=== PATIENT | female | born 1935 | race Caucasian/White ===

== ENCOUNTER 2017-10-10 10:36 | Emergency (ER) | payer MEDICARE, BC ==
[2017-10-10 10:49] VITALS: RESP 18
[2017-10-10] MEDS ORDERED: SODIUM CHLORIDE 0.9% 1,000 ML IV STA (10:59)
[2017-10-10 11:22] LABS: Basophils % (A) 0 %; Eosinophils # (A) 0.2 k/uL (0-0.7); Eosinophils % (A) 2 %; HCT 42.8 % (34.0-46.0); Lymphocytes # (A) 2.5 k/uL (1.0-4.8); Lymphocytes % (A) 28 %; MCH 28.7 pg (25.0-35.0); MCHC 32.7 g/dL (31.0-37.0); MCV 87.6 fL (80.0-100.0); Mean Platelet Volume 7.3; Monocytes # (A) 0.5 k/uL (0-1.0); Monocytes % (A) 5 %; Neutrophils # (A) 5.6 k/uL (1.3-7.7); Neutrophils % (A) 63 %; Platelet Count 303 k/uL (150-450); RBC 4.89 m/uL (3.80-5.40); RDW 13.8 % (11.5-15.5)
--- NOTE | 2017-10-10 11:26 | XR ---
EXAMINATION TYPE: XR chest 2V DATE OF EXAM: 10/10/2017 COMPARISON: Prior chest x-ray 03/14/2014 HISTORY: Weakness TECHNIQUE: Frontal and lateral views of the chest are obtained. FINDINGS: There is no focal air space opacity, pleural effusion, or pneumothorax seen. The cardiac silhouette size is within normal limits. The osseous structures are intact. IMPRESSION: No acute cardiopulmonary process.
[2017-10-10 11:37] LABS: Prothrombin Time 9.8 sec (9.0-12.0)
[2017-10-10 11:38] LABS: Albumin 4.1 g/dL (3.5-5.0); Calcium 9.5 mg/dL (8.4-10.2); Magnesium 2.2 mg/dL (1.6-2.3); Phosphorus 3.5 mg/dL (2.5-4.5); Potassium 3.8 mmol/L (3.5-5.1); Total Bilirubin 0.6 mg/dL (0.2-1.3); Total Protein 6.8 g/dL (6.3-8.2)
[2017-10-10 11:44] LABS: Partial Thromboplastin Time 21.1 sec (22.0-30.0)
[2017-10-10 11:56] LABS: Creatine Kinase 24 U/L (30-135)
[2017-10-10 12:00] LABS: Appearance,Urine Clear (Clear); Bilirubin,Urine Negative (Negative); Blood,Urine Negative (Negative); Color,Urine Yellow; Glucose,Urine (UA) Negative (Negative); Ketones,Urine Negative (Negative); Leukocyte Esterase,Urine Negative (Negative); Nitrite,Urine Negative (Negative); PH, Urine 5.5 (5.0-8.0); Protein,Urine Negative (Negative); Specific Gravity,Urine 1.017 (1.001-1.035); Urobilinogen,Urine <2.0 mg/dL (<2.0)
[2017-10-10 12:09] LABS: Creatine Kinase MB 0.7 ng/mL (0.0-2.4); Troponin I <0.012 ng/mL (0.000-0.034)
--- NOTE | 2017-10-10 13:02 | ED ---
General Adult HPI - General Chief complaint: Weakness Stated complaint: weakness Time Seen by Provider: 10/10/17 10:42 Source: EMS, RN notes reviewed, old records reviewed Mode of arrival: EMS Limitations: no limitations - History of Present Illness Initial comments: This is an 81-year-old female the ER for evaluation, patient presents to the ER for evaluation regarding multiple complaints of mainly regarding weakness. Patient does admit to positive dehydration. Thinks he may have UTI. No recent nausea vomiting or diarrhea no fevers - Related Data Home Medications Medication Instructions Recorded Confirmed Lisinopril-Hctz 20-12.5 mg 2 tab PO DAILY 03/14/14 10/18/17 [Zestoretic 20-12.5] Aspirin EC [Ecotrin Low Dose] 81 mg PO DAILY 10/10/17 10/18/17 LORazepam [Ativan] 0.5 mg PO BID PRN 10/18/17 10/18/17 LORazepam [Ativan] 0.5 mg PO BID@10/18/17 10/18/17 Sertraline [Zoloft] 200 mg PO DAILY 10/18/17 10/18/17 Previous Rx's Medication Instructions Recorded Acetaminophen with Codeine 1 tab PO Q4H PRN 3 Days #18 tab 10/20/17 [Tylenol w/codeine #3] Famotidine [Pepcid] 20 mg PO BID #60 tablet 10/20/17 Naproxen 250 mg PO TID #30 tablet 10/20/17 Allergies Allergy/AdvReac Type Severity Reaction Status Date / Time azithromycin [From Zithromax] Allergy Mild Nausea & Verified 10/18/17 16:45 Vomiting & Diarrhea Iodinated Contrast- Oral and Allergy Mild Unknown Verified 10/18/17 16:45 IV Dye [Iodinated Contrast Media - IV Dye] Penicillins Allergy Itching Verified 10/18/17 16:45 Review of Systems ROS Statement: Those systems with pertinent positive or pertinent negative responses have been documented in the HPI. ROS Other: All systems not noted in ROS Statement are negative. Past Medical History Past Medical History: Hypertension History of Any Multi-Drug Resistant Organisms: None Reported Past Surgical History: Section, Cholecystectomy, Hysterectomy, Tonsillectomy Additional Past Surgical History / Comment(s): eye Past Psychological History: Anxiety, Depression Smoking Status: Never smoker Past Alcohol Use History: None Reported Past Drug Use History: None Reported General Exam Limitations: no limitations General appearance: alert, in no apparent distress Head exam: Present: atraumatic, normocephalic, normal inspection Eye exam: Present: normal appearance, PERRL, EOMI. Absent: scleral icterus, conjunctival injection, periorbital swelling ENT exam: Present: normal exam, mucous membranes moist Neck exam: Present: normal inspection. Absent: tenderness, meningismus, lymphadenopathy Respiratory exam: Present: normal lung sounds bilaterally. Absent: respiratory distress, wheezes, rales, rhonchi, stridor Cardiovascular Exam: Present: regular rate, normal rhythm, normal heart sounds. Absent: systolic murmur, diastolic murmur, rubs, gallop, clicks GI/Abdominal exam: Present: soft, normal bowel sounds. Absent: distended, tenderness, guarding, rebound, rigid Extremities exam: Present: normal inspection, full ROM, normal capillary refill. Absent: tenderness, pedal edema, joint swelling, calf tenderness Back exam: Present: normal inspection Neurological exam: Present: alert, oriented X3, CN II-XII intact Psychiatric exam: Present: normal affect, normal mood Skin exam: Present: warm, dry, intact, normal color. Absent: rash Course Vital Signs 10/10/17 10/10/17 10/10/17 10:44 11:24 13:30 Temperature 97.9 F Pulse Rate 75 73 89 Respiratory 18 18 18 Rate Blood Pressure 171/81 163/77 179/77 O2 Sat by Pulse 96 99 99 Oximetry 10/10/17 15:10 Temperature 97.4 F L Pulse Rate 87 Respiratory 18 Rate Blood Pressure 174/87 O2 Sat by Pulse 99 Oximetry EKG Findings - EKG Comments: EKG Findings:: EKG shows sinus rhythm rate of 89, ID 140, QRS 84, QTC 496 Medical Decision Making - Medical Decision Making 81 female the ER for evaluation. Patient found to be weak. No significant lab abnormalities. Better with IV hydration. Patient can be discharged home - Lab Data Result diagrams: 10/10/17 10:43 10/10/17 10:43 Lab Results 10/10/17 10/10/17 10/10/17 Range/Units 10:43 10:43 10:43 WBC 9.0 (3.8-10.6) k/uL RBC 4.89 (3.80-5.40) m/uL Hgb 14.0 (11.4-16.0) gm/dL Hct 42.8 (34.0-46.0) % MCV 87.6 (80.0-100.0) fL MCH 28.7 (25.0-35.0) pg MCHC 32.7 (31.0-37.0) g/dL RDW 13.8 (11.5-15.5) % Plt Count 303 (150-450) k/uL Neutrophils % 63 % Lymphocytes % 28 % Monocytes % 5 % Eosinophils % 2 % Basophils % 0 % Neutrophils # 5.6 (1.3-7.7) k/uL Lymphocytes # 2.5 (1.0-4.8) k/uL Monocytes # 0.5 (0-1.0) k/uL Eosinophils # 0.2 (0-0.7) k/uL Basophils # 0.0 (0-0.2) k/uL PT (9.0-12.0) sec INR (<1.2) APTT (22.0-30.0) sec Sodium 141 (137-145) mmol/L Potassium 3.8 (3.5-5.1) mmol/L Chloride 105 (98-107) mmol/L Carbon Dioxide 25 (22-30) mmol/L Anion Gap 11 mmol/L BUN 15 (7-17) mg/dL Creatinine 0.77 (0.52-1.04) mg/dL Est GFR (CKD-EPI)AfAm 83 (>60 ml/min/1.73 sqM) Est GFR (CKD-EPI)NonAf 72 (>60 ml/min/1.73 sqM) Glucose 105 H (74-99) mg/dL Plasma Lactic Acid Uday (0.7-2.0) mmol/L Calcium 9.5 (8.4-10.2) mg/dL Phosphorus 3.5 (2.5-4.5) mg/dL Magnesium 2.2 (1.6-2.3) mg/dL Total Bilirubin 0.6 (0.2-1.3) mg/dL AST 19 (14-36) U/L ALT 24 (9-52) U/L Alkaline Phosphatase 75 (38-126) U/L Total Creatine Kinase 24 L (30-135) U/L CK-MB (CK-2) 0.7 (0.0-2.4) ng/mL CK-MB (CK-2) Rel Index 2.9 Troponin I <0.012 (0.000-0.034) ng/mL Total Protein 6.8 (6.3-8.2) g/dL Albumin 4.1 (3.5-5.0) g/dL TSH 2.530 (0.465-4.680) mIU/L Urine Color Urine Appearance (Clear) Urine pH (5.0-8.0) Ur Specific [place] (1.001-1.035) Urine Protein (Negative) Urine Glucose (UA) (Negative) Urine Ketones (Negative) Urine Blood (Negative) Urine Nitrite (Negative) Urine Bilirubin (Negative) Urine Urobilinogen (<2.0) mg/dL Ur Leukocyte Esterase (Negative) 10/10/17 10/10/17 10/10/17 Range/Units 10:43 10:43 11:28 WBC (3.8-10.6) k/uL RBC (3.80-5.40) m/uL Hgb (11.4-16.0) gm/dL Hct (34.0-46.0) % MCV (80.0-100.0) fL MCH (25.0-35.0) pg MCHC (31.0-37.0) g/dL RDW (11.5-15.5) % Plt Count (150-450) k/uL Neutrophils % % Lymphocytes % % Monocytes % % Eosinophils % % Basophils % % Neutrophils # (1.3-7.7) k/uL Lymphocytes # (1.0-4.8) k/uL Monocytes # (0-1.0) k/uL Eosinophils # (0-0.7) k/uL Basophils # (0-0.2) k/uL PT 9.8 (9.0-12.0) sec INR 1.0 (<1.2) APTT 21.1 L (22.0-30.0) sec Sodium (137-145) mmol/L Potassium (3.5-5.1) mmol/L Chloride (98-107) mmol/L Carbon Dioxide (22-30) mmol/L Anion Gap mmol/L BUN (7-17) mg/dL Creatinine (0.52-1.04) mg/dL Est GFR (CKD-EPI)AfAm (>60 ml/min/1.73 sqM) Est GFR (CKD-EPI)NonAf (>60 ml/min/1.73 sqM) Glucose (74-99) mg/dL Plasma Lactic Acid Uday 0.7 (0.7-2.0) mmol/L Calcium (8.4-10.2) mg/dL Phosphorus (2.5-4.5) mg/dL Magnesium (1.6-2.3) mg/dL Total Bilirubin (0.2-1.3) mg/dL AST (14-36) U/L ALT (9-52) U/L Alkaline Phosphatase (38-126) U/L Total Creatine Kinase (30-135) U/L CK-MB (CK-2) (0.0-2.4) ng/mL CK-MB (CK-2) Rel Index Troponin I (0.000-0.034) ng/mL Total Protein (6.3-8.2) g/dL Albumin (3.5-5.0) g/dL TSH (0.465-4.680) mIU/L Urine Color Yellow Urine Appearance Clear (Clear) Urine pH 5.5 (5.0-8.0) Ur Specific [place] 1.017 (1.001-1.035) Urine Protein Negative (Negative) Urine Glucose (UA) Negative (Negative) Urine Ketones Negative (Negative) Urine Blood Negative (Negative) Urine Nitrite Negative (Negative) Urine Bilirubin Negative (Negative) Urine Urobilinogen <2.0 (<2.0) mg/dL Ur Leukocyte Esterase Negative (Negative) - Radiology Data Radiology results: report reviewed (Chest x-rays negative for acute disease), image reviewed Disposition Clinical Impression: Weakness, Depression Disposition: HOME SELF-CARE Condition: Good Instructions: Weakness (ED) Is patient prescribed a controlled substance at d/c from ED?: No Referrals: Jose Rutherford MD [Primary Care Provider] - 1-2 days
[2017-10-10] MEDS ORDERED: LORazepam 1 MG TAB PO STA (13:41)
[2017-10-10 15:28] VITALS: BP 174/87; PULSE 87; TEMP 97.4
== END 2017-10-10 15:10 | disposition home or self-care (01) ==
LOC: EC 10:36
DX: F32.9 Major depressive disorder, single episode, unspecified (principal); R53.1 Weakness; E86.0 Dehydration; I10 Essential (primary) hypertension; F41.9 Anxiety disorder, unspecified; Z79.82 Long term (current) use of aspirin; Z79.899 Other long term (current) drug therapy; Z88.0 Allergy status to penicillin; Z88.1 Allergy status to other antibiotic agents; Z91.041 Radiographic dye allergy status
CPT/HCPCS: 36415; 71046; 80053; 81003; 82550; 82553; 83605; 83735; 84100; 84443; 84484; 85025; 85610; 85730; 87086; 93005; 96360; 96361; 99285

== ENCOUNTER 2017-10-18 15:54 | Observation (INO) | payer MEDICARE, BC ==
[2017-10-18] MEDS ORDERED: NALOXONE 0.4 MG/ML 1 ML VIAL IV PRN (16:34)
[2017-10-18] MEDS ORDERED: ONDANSETRON 4 MG/2 ML VIAL IVP PRN (16:34)
[2017-10-18] MEDS ORDERED: MORPHINE SULFATE 2 MG/ML SYRINGE IV PRN (16:34)
--- NOTE | 2017-10-18 16:34 | ED ---
Fall HPI - General Source: patient, EMS, RN notes reviewed Mode of arrival: EMS Limitations: physical limitation <Nitesh Pryor - Last Filed: 10/18/17 16:31> <Chun Garcia - Last Filed: 10/18/17 16:52> - General Chief Complaint: Fall Stated Complaint: Rt hip pain Time Seen by Provider: 10/18/17 16:08 - History of Present Illness Initial Comments: This an 81-year-old female presented from [facility] for right hip pain, difficulty ambulate in. Patient reportedly had a fall 3 days prior states that she try to move her leg today and had increase in pain. She's been unable to ambulate on her right leg secondary to pain despite using a walker. Patient has not seen orthopedic doctor over 10 years. She used to receive injections for right knee. She denies any bowel bladder incontinence or retention. Patient states the pain rates her right hip down her right leg. She denies any discoloration. Patient did have x-rays and CT of her hip no acute findings. (Nitesh Pryor) - Related Data Home Medications Medication Instructions Recorded Confirmed Lisinopril-Hctz 20-12.5 mg 2 tab PO DAILY 03/14/14 10/18/17 [Zestoretic 20-12.5] Aspirin EC [Ecotrin Low Dose] 81 mg PO DAILY 10/10/17 10/18/17 Ibuprofen [Motrin] 800 mg PO TID PRN 10/18/17 10/18/17 LORazepam [Ativan] 0.5 mg PO BID PRN 10/18/17 10/18/17 LORazepam [Ativan] 0.5 mg PO BID@10/18/17 10/18/17 Sertraline [Zoloft] 200 mg PO DAILY 10/18/17 10/18/17 Allergies Allergy/AdvReac Type Severity Reaction Status Date / Time azithromycin [From Zithromax] Allergy Mild Nausea & Verified 10/18/17 16:45 Vomiting & Diarrhea Iodinated Contrast- Oral and Allergy Mild Unknown Verified 10/18/17 16:45 IV Dye [Iodinated Contrast Media - IV Dye] Penicillins Allergy Itching Verified 10/18/17 16:45 Review of Systems ROS Other: All systems not noted in ROS Statement are negative. <Nitesh Pryor - Last Filed: 10/18/17 16:31> ROS Other: All systems not noted in ROS Statement are negative. <Chun Garcia - Last Filed: 10/18/17 16:52> ROS Statement: Those systems with pertinent positive or pertinent negative responses have been documented in the HPI. Past Medical History Past Medical History: Hypertension Additional Past Medical History / Comment(s): depression anxiety History of Any Multi-Drug Resistant Organisms: None Reported Past Surgical History: Section, Cholecystectomy, Hysterectomy, Tonsillectomy Additional Past Surgical History / Comment(s): eye Past Psychological History: Anxiety, Depression Smoking Status: Never smoker Past Alcohol Use History: None Reported Past Drug Use History: None Reported <Nietsh Pryor - Last Filed: 10/18/17 16:31> General Exam Limitations: no limitations General appearance: alert, in no apparent distress Respiratory exam: Present: normal lung sounds bilaterally. Absent: respiratory distress, wheezes, rales, rhonchi, stridor Cardiovascular Exam: Present: regular rate, normal rhythm, normal heart sounds. Absent: systolic murmur, diastolic murmur, rubs, gallop, clicks GI/Abdominal exam: Present: soft, normal bowel sounds. Absent: distended, tenderness, guarding, rebound, rigid Extremities exam: Present: other (Lower extremity neurovascular intact bilaterally, there is no discoloration or change warmth of either extremity, right leg pain for range of motion at the right hip moderate tenderness with palpation) Back exam: Present: full ROM, tenderness (Mild lumbar region), paraspinal tenderness. Absent: vertebral tenderness Neurological exam: Present: alert, oriented X3, CN II-XII intact, reflexes normal. Absent: motor sensory deficit <Nitesh Pryor - Last Filed: 10/18/17 16:31> Course <Nitesh Pryor - Last Filed: 10/18/17 16:31> <Chun Garcia - Last Filed: 10/18/17 16:52> Vital Signs 10/18/17 16:09 Temperature 98.3 F Pulse Rate 86 Respiratory 16 Rate Blood Pressure 136/67 - Reevaluation(s) Reevaluation #1: 10/18/17 16:51 PA supervision: I did personally see the patient examine the patient. I reviewed and agree with the PA findings including all diagnostic interpretations and treatment plans is written was otherwise stated. I did originally discuss the case with the emergency physician at [facility]. Patient was transferred here for further evaluation by orthopedics. Patient does have right hip pain tenderness palpation no low back pain on palpation no focal deficits. The case was discussed with Dr. Blair. Orthopedics will be consulted. (Chun Garcia) Medical Decision Making <Nitesh Pryor - Last Filed: 10/18/17 16:31> <Chun Garcia - Last Filed: 10/18/17 16:52> - Medical Decision Making 81-year-old presented as a transfer from outside facility. Patient will be admitted for the consult possible MRI and physical therapy evaluation. Patient is unable to ambulate. (Nitesh Pryor) Disposition <Nitesh Pryor - Last Filed: 10/18/17 16:31> <Chun Garcia - Last Filed: 10/18/17 16:52> Clinical Impression: Fall, Unable to ambulate, Right hip pain, Back pain Disposition: ADMITTED IP TO THIS HOSP Condition: Stable Referrals: Bean Valenzuela MD [Primary Care Provider] - 1-2 days
--- NOTE | 2017-10-18 17:51 | P.CNOR ---
History of Present Illness - [facility] Consult date: 10/18/17 Consult reason: low back pain History of present illness: This is an 81-year-old female who initially presented to [facility] with complaints of right hip pain after falling. Reportedly, hip x-rays and computed tomography scan were performed which were negative for fracture. The patient was then discharged to home. She had increasing difficulty with ambulation. She is having significant pain from the right hip down the leg. She states the pain does start around her low back. She denies any numbness or tingling. She presented today to [facility] and is admitted to internal medicine. We're consulted for orthopedic evaluation. Past Medical History Past Medical History: Hypertension Additional Past Medical History / Comment(s): depression anxiety History of Any Multi-Drug Resistant Organisms: None Reported Past Surgical History: Section, Cholecystectomy, Hysterectomy, Tonsillectomy Additional Past Surgical History / Comment(s): eye Past Psychological History: Anxiety, Depression Smoking Status: Never smoker Past Alcohol Use History: None Reported Past Drug Use History: None Reported Medications and Allergies Home Medications Medication Instructions Recorded Confirmed Type Lisinopril-Hctz 20-12.5 mg 2 tab PO DAILY 03/14/14 10/18/17 History [Zestoretic 20-12.5] Aspirin EC [Ecotrin Low Dose] 81 mg PO DAILY 10/10/17 10/18/17 History Ibuprofen [Motrin] 800 mg PO TID PRN 10/18/17 10/18/17 History LORazepam [Ativan] 0.5 mg PO BID PRN 10/18/17 10/18/17 History LORazepam [Ativan] 0.5 mg PO BID@10/18/17 10/18/17 History Sertraline [Zoloft] 200 mg PO DAILY 10/18/17 10/18/17 History Allergies Allergy/AdvReac Type Severity Reaction Status Date / Time azithromycin [From Zithromax] Allergy Mild Nausea & Verified 10/18/17 16:45 Vomiting & Diarrhea Iodinated Contrast- Oral and Allergy Mild Unknown Verified 10/18/17 16:45 IV Dye [Iodinated Contrast Media - IV Dye] Penicillins Allergy Itching Verified 10/18/17 16:45 Physical Examination This is a pleasant 81-year-old female in no acute distress. She is alert and oriented 3. Exam of the head neck reveal no obvious deformity. She has full cervical spine motion without difficulty or pain. Exam the upper extremities is unremarkable. Exam of the thoracic and lumbar spine reveals no obvious deformity. There is pain on palpation about the lower lumbar spine and the right paraspinal musculature. Exam of the lower extremities reveals no obvious deformity. She is unable to lift the right leg off the bed independently secondary to pain. There is no hip pain with logroll. Straight leg raise produces pain to the right buttock. Pedal pulses are +2/4 bilaterally. She has +4/5 strength with dorsiflexion of the great toe against resistance on the right. Neurovascular status lower extremity is intact. Assessment and Plan (1) Radiculopathy of lumbar region Current Visit: Yes Status: Acute Code(s): M54.16 - RADICULOPATHY, LUMBAR REGION SNOMED Code(s): 901487174 (2) Back pain Current Visit: Yes Status: Acute Code(s): M54.9 - DORSALGIA, UNSPECIFIED SNOMED Code(s): 454954422 Plan: The clinical findings are discussed with the patient and her family. We will attempt to get the images from [facility]. I've ordered lumbar spine films for evaluation.
[2017-10-18 18:00] VITALS: BMI 30.2
--- NOTE | 2017-10-18 18:33 | XR ---
EXAMINATION TYPE: XR lumbar spine 2 or 3V DATE OF EXAM: 10/18/2017 COMPARISON: NONE HISTORY: Low back pain TECHNIQUE: 3 views FINDINGS: There is slight lumbar levoscoliosis. There is osteopenia. Sacroiliac joints are intact. I see no compression fracture. IMPRESSION: Mild levoscoliosis. No fracture.
[2017-10-18] MEDS ORDERED: LORazepam 0.5 MG TAB PO PRN (22:56)
[2017-10-18] MEDS ORDERED: LACTULOSE 20 GM/30 ML CUP PO PRN (23:07)
[2017-10-18] MEDS ORDERED: MAGNESIUM HYDROXIDE 2,400 MG/10 ML CUP PO PRN (23:07)
[2017-10-18] MEDS ORDERED: MELATONIN 3 MG TABLET PO PRN (23:07)
[2017-10-18] MEDS ORDERED: CALCIUM CARBONATE 500 MG CHEWABLE PO PRN (23:07)
[2017-10-18] MEDS ORDERED: ACETAMINOPHEN TAB 325 MG TAB PO PRN (23:07)
[2017-10-19] MEDS: LORazepam 0.5 MG TAB PO SCH ×3 (00:46→23:39)
[2017-10-19] MEDS: ENOXAPARIN 40 MG/0.4 ML SYRINGE SQ SCH ×2 (00:46→07:42)
[2017-10-19] MEDS: HYDROcodone/APAP 5-325MG 1 EACH TAB PO PRN ×3 (00:46→18:17)
--- NOTE | 2017-10-19 06:09 | HP ---
HISTORY AND PHYSICAL DATE OF SERVICE: 10/18/2017 PRESENTING COMPLAINT: Fall. HISTORY OF PRESENTING COMPLAINT: This is a pleasant 81-year-old patient of Dr. Bean Vaelnzuela whose chronic stable medical conditions include hypertension, depression, anxiety, and osteoarthritis of the knees. The patient normally uses a walker and took a misstep and fell 3 days ago having injury to the right hip. The patient since then has been having trouble with weightbearing on the right side. She initially presented to [facility], but x-ray and CT scan failed to reveal any fracture. The patient was sent down here to get an MRI and further orthopedic evaluation. Denies any cardiac history, palpitation. The patient's fall was mechanical. REVIEW OF SYSTEMS: CONSTITUTIONAL: None. HEENT: Decreased hearing. RESPIRATORY: None. CARDIOVASCULAR: None. GASTROINTESTINAL: None. GENITOURINARY: None. MUSCULOSKELETAL: Pain in the right hip, left knee. DERMATOLOGICAL: None. HEMATOLOGIC: None. LYMPHATIC: None. PSYCHIATRY: Anxiety, depression controlled. NEUROLOGICAL: Patient does use a walker at her baseline. PAST MEDICAL HISTORY: Hypertension, depression, anxiety. PAST SURGICAL HISTORY: , cholecystectomy, hysterectomy, tonsillectomy. PSYCH HISTORY: Anxiety, depression. SOCIAL HISTORY: Does not smoke or drink alcohol. Lives with daughter. Uses a walker. FAMILY HISTORY: Reviewed noncontributory to presentation. HOME MEDICATIONS: 1. Zoloft 200 mg a day. 2. Zestoretic 20/12.5 two tablets p.o. daily. 3. Ativan 0.5 p.o. b.i.d. and 0.5 p.r.n. 4. Motrin 800 mg t.i.d. p.r.n. 5. Aspirin 81 mg a day. ALLERGIES: AZITHROMYCIN, IV CONTRAST DYE, PENICILLIN. PHYSICAL EXAMINATION: On examination, temperature 98.3, pulse 71, respiratory 18, blood pressure 112/68, pulse ox 93% on room air. GENERAL APPEARANCE: Average built, BMI 30.3, lying in bed, awake. EYES: Pupils equal. Conjunctivae normal. HENT: External appearance of nose and ears normal. Oral cavity cruzito. NECK: JVD not raised. Mass not palpable. RESPIRATORY: Effort normal. Lungs are clear. CARDIOVASCULAR: First and second sounds normal. No edema. ABDOMEN: Soft, nontender. Liver and spleen not palpable. LYMPHATIC: No lymph palpable in the neck or axillae. PSYCHIATRY: Alert and oriented x3. Mood and affect normal. NEUROLOGICAL: Pupils equal. Cranial nerves grossly intact. Power and sensation grossly intact. MUSCULOSKELETAL: Evidence of osteoarthritis in the hands, knees and limited range of motion of the right hip. INVESTIGATIONS: CT scan and x-ray from the other hospital did not show any obvious fracture. Blood work is pending. ASSESSMENT: 1. This is a patient who took a fall 3 days ago. She has got pain in the right hip area with no obvious fracture on the CT scan. The patient may have a hairline fracture that may show up on MRI as well this fracture could be impacted. 2. 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 3. Essential hypertension. 4. Depression, anxiety, not otherwise specified. 5. Chronic gait dysfunction, at baseline uses a walker. PLAN: Orthopedics was consulted. Home medications are resumed. Patient will get Lovenox for DVT prophylaxis. Care was discussed with the patient. MMCLAU / YAHIRN: [id number] /
[2017-10-19 06:50] LABS: Basophils # (A) 0.1 k/uL (0-0.2); Basophils % (A) 1 %; Eosinophils # (A) 0.2 k/uL (0-0.7); Eosinophils % (A) 2 %; HCT 43.4 % (34.0-46.0); HGB 13.8 gm/dL (11.4-16.0); Lymphocytes # (A) 2.4 k/uL (1.0-4.8); Lymphocytes % (A) 23 %; MCH 28.3 pg (25.0-35.0); MCHC 31.7 g/dL (31.0-37.0); MCV 89.3 fL (80.0-100.0); Mean Platelet Volume 7.3; Monocytes # (A) 0.7 k/uL (0-1.0); Monocytes % (A) 6 %; Neutrophils # (A) 7.1 k/uL (1.3-7.7); Neutrophils % (A) 67 %; Platelet Count 298 k/uL (150-450); RBC 4.86 m/uL (3.80-5.40); RDW 13.9 % (11.5-15.5); WBC 10.6 k/uL (3.8-10.6)
[2017-10-19 06:57] LABS: Albumin 3.7 g/dL (3.5-5.0); Calcium 9.4 mg/dL (8.4-10.2); Potassium 3.5 mmol/L (3.5-5.1); Total Bilirubin 0.8 mg/dL (0.2-1.3); Total Protein 6.2 g/dL (6.3-8.2)
[2017-10-19] MEDS: LISINOPRIL-HCTZ 20-12.5 MG 1 EACH TAB PO SCH (07:41)
[2017-10-19] MEDS: SERTRALINE 100 MG TAB PO SCH (07:42)
--- NOTE | 2017-10-19 08:43 | P.PN ---
Subjective Progress Note Date: 10/19/17 Principal diagnosis: Right lower extremity pain. Low back pain. This is an 81-year-old female who we are following regarding her right lower extremity pain. She states that her pain is improved today. She had lumbar x- rays which show mild to moderate degenerative changes with degenerative disc disease. No acute fractures identified. Objective - Vital Signs Vital signs: Vital Signs Temp 98.6 F 10/19/17 07:29 Pulse 73 10/19/17 07:29 Resp 16 10/19/17 07:29 BP 110/70 10/19/17 07:29 Pulse Ox 93 L 10/19/17 07:29 Intake & Output 10/18/17 10/19/17 10/19/17 18:59 06:59 18:59 Intake Total 1328 Balance 1328 Weight 70.307 kg Intake: IV 248 Sodium Chloride 0.9% at 248 20ml/hr Oral 1080 Other: Voiding Method Bedpan Bedpan # Voids 1 1 # Bowel Movements 0 1 - Exam This is a pleasant 81-year-old female in no acute distress. She is alert and oriented 3. On exam today she can move her right leg a little bit better in bed. She has full foot ankle motion. No hip pain with logroll. Neurovascular status to the lower extremities is intact. - Labs CBC & Chem 7: 10/19/17 06:26 10/19/17 06:26 Labs: Abnormal Lab Results - Last 24 Hours (Table) 10/19/17 Range/Units 06:26 BUN 18 H (7-17) mg/dL Glucose 111 H (74-99) mg/dL Total Protein 6.2 L (6.3-8.2) g/dL Assessment and Plan (1) Radiculopathy of lumbar region Current Visit: Yes Status: Acute Code(s): M54.16 - RADICULOPATHY, LUMBAR REGION SNOMED Code(s): 905668514 (2) Back pain Current Visit: Yes Status: Acute Code(s): M54.9 - DORSALGIA, UNSPECIFIED SNOMED Code(s): 170435592 Plan: The clinical and x-ray findings are discussed the patient. Treatment options are discussed including IV site Medrol, pain management consultation and further imaging with MRI. The patient's declines steroid treatment of this time. She also does not wish to be seen by pain management for possible injections. She will try to get up today with physical therapy. We will see how she does with physical therapy today. We will continue to follow.
--- NOTE | 2017-10-20 00:06 | PN ---
PROGRESS NOTE DATE OF SERVICE: 10/19/2017 PRESENTING COMPLAINT: Fall. INTERVAL HISTORY: This patient presented with fall with a blunt injury to the right hip. The patient is requiring significant help. She is not safe to go by herself. Physical Therapy saw the patient. The patient needs significant assistance. The patient does not want an MRI, did not want any pain management, did tolerate her diet. REVIEW OF SYSTEMS: Done for constitutional, cardiovascular, GI, pulmonary; relevant findings as above. CURRENT MEDICATIONS: Reviewed. EXAMINATION: Temperature 99.1, pulse 73, respirations 16 blood pressure 103/67, pulse ox 92% on room air. GENERAL APPEARANCE: Lying in bed, awake, EYES: Pupils equal. Conjunctivae normal. HEENT: External nose and ears normal. Oral cavity normal. NECK: JVD not raised. Mass not palpable. RESPIRATORY: Effort normal. Lungs are clear. CARDIOVASCULAR: First and second sounds normal. No edema. ABDOMEN: Soft, nontender. Liver and spleen not palpable. PSYCHIATRY: Alert and oriented x3. Mood and affect were normal. INVESTIGATIONS: Potassium 3.5, BUN 18, creatinine 0.77. ASSESSMENT: 1. Blunt injury to the right hip causing patient to have limited motion. Patient is not safe to be on her own right now. 2. Primary osteoarthritis in multiple joints, including hands and knees. 3. Essential hypertension. 4. Depression and anxiety, not otherwise specified. 5. Chronic gait dysfunction, at baseline uses a walker. The patient was seen by Physical Therapy/Occupational Therapy. Patient is not safe by herself at this point, needs some more help. Patient will probably need inpatient rehab. I do not see how she is going to manage on her own like this. MMODL / IJN: [id number] /
[2017-10-20 08:47] VITALS: PULSE 77
[2017-10-20] MEDS: SERTRALINE 100 MG TAB PO SCH (08:48)
[2017-10-20] MEDS: ENOXAPARIN 40 MG/0.4 ML SYRINGE SQ SCH (08:48)
[2017-10-20] MEDS: LISINOPRIL-HCTZ 20-12.5 MG 1 EACH TAB PO SCH (08:48)
--- NOTE | 2017-10-20 10:10 | P.PN ---
Subjective Progress Note Date: 10/20/17 Principal diagnosis: Right hip pain. Right lower extremity pain. Low back pain. This is an 81-year-old female who we are following regarding her right hip and lower extremity pain. Her pain had been improved yesterday. However, today she reports significant pain to the right groin. She had lumbar x-rays which show mild to moderate degenerative changes with degenerative disc disease. No acute fractures identified. CT and x-ray of the right hip taken at [facility] on 10/18/2017 were reportedly negative. The films are being loaded into our synapse at this time. Objective - Vital Signs Vital signs: Vital Signs Temp 98.4 F 10/20/17 07:00 Pulse 77 10/20/17 07:00 Resp 12 10/20/17 07:00 BP 120/69 10/20/17 07:00 Pulse Ox 95 10/20/17 07:00 Intake & Output 10/19/17 10/20/17 10/20/17 18:59 06:59 18:59 Intake Total 518 840 Output Total 400 Balance 518 840 -400 Intake: IV 160 Sodium Chloride 0.9% at 160 20ml/hr Oral 358 840 Output: Urine 400 Other: Voiding Method Bedside Commode # Voids 2 1 2 # Bowel Movements 1 - Exam This is a pleasant 81-year-old female in no acute distress. She is alert and oriented 3. On exam today she has more difficulty lifting the right leg off the bed independently. She describes pain in the groin when trying to move the right leg. She states that her pain is no longer in the buttock or lateral hip today. Logroll produces mild pain to the right thigh. She has full foot and ankle motion without difficulty or pain. Neurovascular status to the lower extremity is intact. - Labs CBC & Chem 7: 10/19/17 06:26 10/19/17 06:26 Assessment and Plan (1) Radiculopathy of lumbar region Current Visit: Yes Status: Acute Code(s): M54.16 - RADICULOPATHY, LUMBAR REGION SNOMED Code(s): 396654620 (2) Back pain Current Visit: Yes Status: Acute Code(s): M54.9 - DORSALGIA, UNSPECIFIED SNOMED Code(s): 370250735 Plan: The clinical and x-ray findings are discussed the patient. With her persistent right hip symptoms, I will repeat pelvis and right hip x-rays. I am having the films from [facility] loaded onto our synapse. If repeat x-rays are negative he may consider MRI of the pelvis.
[2017-10-20] MEDS: LORazepam 0.5 MG TAB PO SCH (11:09)
[2017-10-20] MEDS: HYDROcodone/APAP 5-325MG 1 EACH TAB PO PRN ×2 (11:12→18:25)
--- NOTE | 2017-10-20 11:13 | XR ---
EXAMINATION TYPE: XR Hip Complete RT , 2 VIEWS DATE OF EXAM ORDERED: 10/20/2017 HISTORY: right hip pain. COMPARISON: None. FINDINGS: The study is limited by the patient's tremendous size. No fracture or dislocation is seen. There are mild degenerative changes in the right hip joint. IMPRESSION: 1. LIMITED STUDY. 2. NO ACUTE OSSEOUS LESION. 3. DEGENERATIVE CHANGE.
--- NOTE | 2017-10-20 11:14 | XR ---
EXAMINATION TYPE: XR pelvis AP view , ONE VIEW DATE OF EXAM ORDERED: 10/20/2017 HISTORY: right hip pain. COMPARISON: None. FINDINGS: There are mild degenerative changes present in both hips. No acute fracture, dislocation o r other acute osseous lesion is seen. IMPRESSION: 1. NO ACUTE OSSEOUS LESION. 2. MILD DEGENERATIVE CHANGE.
[2017-10-20 14:37] VITALS: BP 96/60; RESP 16; TEMP 98.1
--- NOTE | 2017-10-21 23:38 | DS ---
DISCHARGE SUMMARY DATE OF ADMISSION: 10/18/2017. DATE OF DISCHARGE: 10/20/2017. FINAL DIAGNOSES: 1. Blunt injury to the right hip causing patient limited motion initially. Fracture was ruled out. 2. Primary osteoarthritis of multiple joints including hands and knees. 3. Essential hypertension. 4. Depression and anxiety, not otherwise specified. 5. Chronic gait dysfunction at baseline. Patient using a walker next. CONSULTATION: Dr. Burton from Orthopedics. HOSPITAL COURSE: This patient had fallen about a week ago. Initially presented to [facility]. Did have x-ray and a CT scan that were negative for any fracture. The patient was seen here by Dr. Burton. No further intervention to be done. Seen by Physical therapy. On date of discharge discussed with case management rn and the patient. Patient was not qualifying for inpatient rehab. She was cleared to go home. Discussed this with the patient at length. Discussion and discharge planning more than 35 minutes. On examination, lungs are clear. Cardiovascular, 1st and 2nd sounds normal. The patient does use a walker to get about. DISCHARGE MEDICATIONS: 1. Zestoretic 12.5 two tablets p.o. daily. 2. Aspirin 81 mg daily. 3. Ativan 0.5 mg b.i.d. p.r.n. 4. Zoloft 200 mg p.o. daily. 5. Tylenol 3 one tab eveyr 4 hours p.r.n. 6. Pepcid 20 mg p.o. b.i.d. 7. Naproxen 250 mg p.o. t.i.d., 30 tablets. FOLLOWUP: 1. With Bean Valenzuela in [address] Burton in 1 week. 3. [facility] was involved. Discussion and discharge planning more than 35 minutes. MMODL / IJN: [id number] /
== END 2017-10-20 18:35 | disposition home health service (06) ==
LOC: EC 15:54 → 3SUR 16:51 → INTOOBSV 16:51
PROVIDERS: ADMIT Hospitalist; ATTEND Hospitalist
DX: S79.811A Other specified injuries of right hip, initial encounter (principal); M51.16 Intervertebral disc disorders with radiculopathy, lumbar region; M79.604 Pain in right leg; M17.0 Bilateral primary osteoarthritis of knee; M19.042 Primary osteoarthritis, left hand; M19.041 Primary osteoarthritis, right hand; R26.9 Unspecified abnormalities of gait and mobility; R26.2 Difficulty in walking, not elsewhere classified; I10 Essential (primary) hypertension; F41.9 Anxiety disorder, unspecified; F32.9 Major depressive disorder, single episode, unspecified; Z79.82 Long term (current) use of aspirin; Z79.899 Other long term (current) drug therapy; Z88.0 Allergy status to penicillin; Z88.1 Allergy status to other antibiotic agents; Z91.041 Radiographic dye allergy status; Z90.49 Acquired absence of other specified parts of digestive tract; Z90.710 Acquired absence of both cervix and uterus; W19.XXXA Unspecified fall, initial encounter
CPT/HCPCS: 99285 ×2; 96372 ×2; 97161; 97166; 80053; 85025; 72100; 72170; 73502; G0378 ×4; J1650 ×2

== ENCOUNTER 2019-07-29 13:51 | Inpatient (IN) | payer MEDICARE, OTHER ==
[2019-07-29 14:16] LABS: Basophils % (A) 0 %; Eosinophils # (A) 0.2 k/uL (0-0.7); Eosinophils % (A) 2 %; HCT 38.6 % (34.0-46.0); HGB 12.5 gm/dL (11.4-16.0); Lymphocytes # (A) 2.4 k/uL (1.0-4.8); Lymphocytes % (A) 21 %; MCH 27.8 pg (25.0-35.0); MCHC 32.3 g/dL (31.0-37.0); MCV 86.1 fL (80.0-100.0); Mean Platelet Volume 7.3; Monocytes # (A) 0.6 k/uL (0-1.0); Monocytes % (A) 6 %; Neutrophils % (A) 70 %; Platelet Count 484 k/uL (150-450); RBC 4.49 m/uL (3.80-5.40); RDW 12.8 % (11.5-15.5); WBC 11.4 k/uL (3.8-10.6)
--- NOTE | 2019-07-29 14:31 | XR ---
EXAMINATION TYPE: XR sacrum coccyx, 3 views DATE OF EXAM: 07/29/2019 COMPARISON: CT right hip 10/18/2017 HISTORY: 83-year-old female chronic wound and pain TECHNIQUE: 3 views FINDINGS: Lateral view shows soft tissue irregularity and some air lucencies involving the skin and subcutaneou s surface overlying the tailbone. No erosion or destruction of the coccygeal segments. Unable to excl ude subtle periostitis or bony erosion at the sacrococcygeal junction on the lateral view. IMPRESSION: 1. Air lucencies projecting over the skin and subcutaneous tissues suggesting wound overlying the lizzeth lbone. 2. Difficult to exclude subtle osseous erosion along the dorsal aspect of the sacrococcygeal junction on the lateral view. Further evaluation as indicated. The coccygeal segments remain intact.
[2019-07-29 14:32] LABS: ALT 22 U/L (4-34); AST 34 U/L (14-36); African American GFR (CKD) >90 (>60 ml/min/1.73 sqM); Albumin 3.1 g/dL (3.5-5.0); Alkaline Phosphatase 86 U/L (38-126); Anion Gap 5 mmol/L; Blood Urea Nitrogen 11 mg/dL (7-17); C Reactive Protein 52.4 mg/L (<10.0); Calcium 8.9 mg/dL (8.4-10.2); Carbon Dioxide 28 mmol/L (22-30); Chloride 102 mmol/L (98-107); Glucose 103 mg/dL (74-99); Non-African American GFR(CKD) 84 (>60 ml/min/1.73 sqM); Potassium 3.6 mmol/L (3.5-5.1); Sodium 135 mmol/L (137-145); Total Bilirubin 0.6 mg/dL (0.2-1.3); Total Protein 6.4 g/dL (6.3-8.2)
[2019-07-29] MEDS ORDERED: ONDANSETRON 4 MG/2 ML VIAL IVP STA (14:38)
[2019-07-29] MEDS ORDERED: MORPHINE SULFATE 4 MG/ML SYRINGE IVP STA (14:38)
--- NOTE | 2019-07-29 15:01 | ED ---
Skin/Abscess/FB HPI - General Chief complaint: Skin/Abscess/Foreign Body Stated complaint: Infection Time Seen by Provider: 07/29/19 13:53 Source: EMS Mode of arrival: EMS Limitations: no limitations - History of Present Illness Initial comments: Patient is an 83-year-old female, with history of COPD, hypertension, CAD, dementia, presenting to the emergency Department with complaints of an infected ulcer. Patient has been on Cipro and just finished course today. Patient's home health nurse stated that the wound is still getting worse and sent her into the ER today. Patient is complaining of pain in her sacrum. She denies having a fever, chills, abdominal pain, nausea, vomiting. Patient has no other complaints at this time. Upon arrival to the ER, her vital signs are stable, afebrile. - Related Data Home Medications Medication Instructions Recorded Confirmed Apixaban [Eliquis] 5 mg PO BID 07/29/19 07/29/19 Hydrochlorothiazide 12.5 mg PO DAILY 07/29/19 07/29/19 Sertraline [Zoloft] 25 mg PO DAILY 07/29/19 07/29/19 traMADol-ACETAMINOP 37.5-325MG 1 tab PO QID PRN 07/29/19 07/29/19 [Ultracet] Allergies Allergy/AdvReac Type Severity Reaction Status Date / Time azithromycin [From Zithromax] Allergy Mild Nausea & Verified 07/29/19 15:50 Vomiting & Diarrhea Iodinated Contrast Media Allergy Mild Unknown Verified 07/29/19 15:50 [Iodinated Contrast Media - IV Dye] Penicillins Allergy Itching Verified 07/29/19 15:50 Review of Systems ROS Statement: Those systems with pertinent positive or pertinent negative responses have been documented in the HPI. ROS Other: All systems not noted in ROS Statement are negative. Past Medical History Past Medical History: Hypertension Additional Past Medical History / Comment(s): depression anxiety History of Any Multi-Drug Resistant Organisms: None Reported Past Surgical History: Section, Cholecystectomy, Hysterectomy, Tonsillectomy Additional Past Surgical History / Comment(s): eye Past Psychological History: Anxiety, Depression Smoking Status: Never smoker Past Alcohol Use History: None Reported Past Drug Use History: None Reported General Exam - General Exam Comments Initial Comments: GENERAL: Well-appearing, well-nourished and in no acute distress. HEAD: Atraumatic, normocephalic. EYES: Pupils equal round and reactive to light, extraocular movements intact, sclera anicteric, conjunctiva are normal. ENT: TMs normal, nares patent, oropharynx clear without exudates. Moist mucous membranes. NECK: Normal range of motion, supple without lymphadenopathy or JVD. LUNGS: Breath sounds clear to auscultation bilaterally and equal. No wheezes rales or rhonchi. HEART: Regular rate and rhythm without murmurs, rubs or gallops. ABDOMEN: Soft, nontender, normoactive bowel sounds. No guarding, no rebound. No masses appreciated. : Deferred EXTREMITIES: Normal range of motion, no pitting or edema. No clubbing or cyanosis. NEUROLOGICAL: Normal speech. PSYCH: Normal mood, normal affect. SKIN: Warm, Dry, normal turgor, no rashes. Patient has a large, 3 cm x 3 cm x 3 cm depth decubitus ulcer sacral area. There is some erythema surrounding the wound and as well as active drainage and a very strong odor. I am able to visualize m uscle, no bony visualization. Limitations: no limitations Course Vital Signs 07/29/19 07/29/19 13:52 16:19 Temperature 98.0 F 98.3 F Pulse Rate 75 68 Respiratory 16 18 Rate Blood Pressure 166/84 133/70 O2 Sat by Pulse 96 94 L Oximetry Medical Decision Making - Medical Decision Making Patient is a 83-year-old female here for a large sacral decubitus ulcer, stage III. Patient just finished course of Cipro today and home health nurse states the wound is larger and worse. Patient is afebrile, vital stable. Labs show leukocytosis 11.4, CRP 52, ESR 79, lactic acid is 1.5. X-ray of sacrum coccyx area shows a possible subtle osseous erosion along the dorsal aspect of the sacrococcygeal junction. Patient will be admitted and placed on IV antibiotics. Patient accepted by Dr. Blair. We will consult surgery and infectious disease. Patient is in agreement with this plan of care. Case discussed with Dr. Cabello who is in agreement as well. - Lab Data Result diagrams: 07/29/19 14:06 07/29/19 14:06 Lab Results 07/29/19 07/29/19 07/29/19 Range/Units 14:06 14:06 14:06 WBC 11.4 H (3.8-10.6) k/uL RBC 4.49 (3.80-5.40) m/uL Hgb 12.5 (11.4-16.0) gm/dL Hct 38.6 (34.0-46.0) % MCV 86.1 (80.0-100.0) fL MCH 27.8 (25.0-35.0) pg MCHC 32.3 (31.0-37.0) g/dL RDW 12.8 (11.5-15.5) % Plt Count 484 H (150-450) k/uL Neutrophils % 70 % Lymphocytes % 21 % Monocytes % 6 % Eosinophils % 2 % Basophils % 0 % Neutrophils # 8.0 H (1.3-7.7) k/uL Lymphocytes # 2.4 (1.0-4.8) k/uL Monocytes # 0.6 (0-1.0) k/uL Eosinophils # 0.2 (0-0.7) k/uL Basophils # 0.0 (0-0.2) k/uL ESR 79 H (0-20) mm/hr Sodium 135 L (137-145) mmol/L Potassium 3.6 (3.5-5.1) mmol/L Chloride 102 (98-107) mmol/L Carbon Dioxide 28 (22-30) mmol/L Anion Gap 5 mmol/L BUN 11 (7-17) mg/dL Creatinine 0.60 (0.52-1.04) mg/dL Est GFR (CKD-EPI)AfAm >90 (>60 ml/min/1.73 sqM) Est GFR (CKD-EPI)NonAf 84 (>60 ml/min/1.73 sqM) Glucose 103 H (74-99) mg/dL Plasma Lactic Acid Uday 1.5 (0.7-2.0) mmol/L Calcium 8.9 (8.4-10.2) mg/dL Total Bilirubin 0.6 (0.2-1.3) mg/dL AST 34 (14-36) U/L ALT 22 (4-34) U/L Alkaline Phosphatase 86 (38-126) U/L C-Reactive Protein 52.4 H (<10.0) mg/L Total Protein 6.4 (6.3-8.2) g/dL Albumin 3.1 L (3.5-5.0) g/dL Disposition Clinical Impression: Sacral decubitus ulcer, stage III, Sacral pain Disposition: ADMITTED IP TO THIS [facility] Condition: Good Is patient prescribed a controlled substance at d/c from ED?: No Decision Date: 07/29/19 Decision Time: 15:19
[2019-07-29 15:12] LABS: Erythrocyte Sedimentation Rate 79 mm/hr (0-20)
[2019-07-29] MEDS ORDERED: ONDANSETRON 4 MG/2 ML VIAL IVP PRN (15:12)
[2019-07-29] MEDS ORDERED: MORPHINE SULFATE 4 MG/ML SYRINGE IV PRN (15:12)
[2019-07-29] MEDS ORDERED: NALOXONE 0.4 MG/ML 1 ML VIAL IV PRN (15:12)
[2019-07-29] MEDS ORDERED: VANCOMYCIN IV PER PHARMACY 1 EACH MISC MISCELLANE PRN (15:17)
[2019-07-29] MEDS ORDERED: LEVOFLOXACIN 500MG-D5W PMX 500 MG in DEXTROSE/WATER 1 100ML.BAG IVPB STA (15:18)
[2019-07-29] MEDS ORDERED: VANCOMYCIN 1,250 MG in SODIUM CHLORIDE 0.9% 250 ML IVPB STA (15:31)
[2019-07-29] MEDS: SODIUM CHLORIDE 0.9% 1,000 ML IV SCH (16:21)
[2019-07-29] MEDS: ACETAMINOPHEN TAB 325 MG TAB PO PRN (17:56)
[2019-07-30] MEDS: ACETAMINOPHEN TAB 325 MG TAB PO PRN ×4 (05:56→21:56)
[2019-07-30] MEDS: HYDROCHLOROTHIAZIDE 12.5 MG CAP PO SCH (07:37)
[2019-07-30] MEDS: SODIUM CHLORIDE 0.9% 1,000 ML IV SCH (07:37)
[2019-07-30] MEDS: SERTRALINE 25 MG TAB PO SCH (07:37)
[2019-07-30 07:55] LABS: Basophils # (A) 0.1 k/uL (0-0.2); Basophils % (A) 1 %; Eosinophils % (A) 0 %; HCT 42.2 % (34.0-46.0); HGB 12.9 gm/dL (11.4-16.0); Lymphocytes # (A) 0.8 k/uL (1.0-4.8); Lymphocytes % (A) 7 %; MCH 27.3 pg (25.0-35.0); MCHC 30.7 g/dL (31.0-37.0); MCV 89.1 fL (80.0-100.0); Mean Platelet Volume 7.9; Monocytes # (A) 0.6 k/uL (0-1.0); Monocytes % (A) 5 %; Neutrophils % (A) 87 %; Platelet Count 458 k/uL (150-450); RBC 4.73 m/uL (3.80-5.40); RDW 13.2 % (11.5-15.5); WBC 12.6 k/uL (3.8-10.6)
[2019-07-30 08:23] LABS: ALT 231 U/L (4-34); AST 335 U/L (14-36); African American GFR (CKD) >90 (>60 ml/min/1.73 sqM); Albumin 2.8 g/dL (3.5-5.0); Alkaline Phosphatase 267 U/L (38-126); Anion Gap 8 mmol/L; Blood Urea Nitrogen 13 mg/dL (7-17); Calcium 8.6 mg/dL (8.4-10.2); Carbon Dioxide 25 mmol/L (22-30); Chloride 104 mmol/L (98-107); Glucose 123 mg/dL (74-99); Non-African American GFR(CKD) 80 (>60 ml/min/1.73 sqM); Sodium 137 mmol/L (137-145); Total Protein 6.2 g/dL (6.3-8.2)
[2019-07-30] MEDS: VANCOMYCIN 1,250 MG in SODIUM CHLORIDE 0.9% 250 ML IVPB SCH (08:49)
[2019-07-30] MEDS ORDERED: APIXABAN 5 MG TAB PO SCH (09:00)
--- NOTE | 2019-07-30 10:42 | P.GSCN ---
History of Present Illness Consult date: 07/30/19 Reason for Consult: Infected decubitus sacral ulcer Requesting physician: Jessica Her History of present illness: CHIEF COMPLAINT: Infected decubitus sacral ulcer HISTORY OF PRESENT ILLNESS: 83-year-old female who presents to the emergency room secondary to a decubitus sacral ulcer. Per nursing, the patient lives with her daughter and has been receiving home care. She apparently recently completed a course of Cipro. Patient does report pain and discomfort to sacral region. PAST MEDICAL HISTORY: See list. PAST SURGICAL HISTORY: See list. SOCIAL HISTORY: No illicit drug use. REVIEW OF SYSTEMS: CONSTITUTIONAL: Denies fever or chills. HEENT: Denies blurred vision, vision changes, or eye pain. Denies hemoptysis CARDIOVASCULAR: Denies chest pain or pressure. RESPIRATORY: No shortness of breath. GASTROINTESTINAL: Denies abdominal pain. HEMATOLOGIC: Denies bleeding disorders. GENITOURINARY: Denies any blood in urine. SKIN: Reports chronic wound to sacrum. Denies pruitis. Denies rash. PHYSICAL EXAM: VITAL SIGNS: Reviewed. GENERAL: Well-developed in no acute distress. HEENT: No sclera icterus. Extraocular movements grossly intact. Moist buccal mucosa. Head is atraumatic, normocephalic. ABDOMEN: Soft. Nondistended. Nontender. . NEUROLOGIC: Alert and oriented x 2 SKIN: Patient with evidence of an unstageable sacral decubitus ulcer LABORATORY DATA: WBC 12.6. Hemoglobin 12.9. Platelet count 458. AST 335. ALT 231. CRP 52.4 IMAGING: X-ray sacrum coccyx: There are lucencies projecting over this can and subcutaneous tissue suggesting wound overlying the telephone. Difficult to exclude subtle osseous erosion along the dorsal aspect of the sacrococcygeal junction on the lateral view. ASSESSMENT: 1. Unstageable sacral decubitus ulcer 2. Leukocytosis PLAN: -Patient currently receiving Eliquis. Last dose was this morning. Will hold Eliquis at this time -Diet as tolerated -Continue antibiotics. Monitor WBC -Dr. Miramontes on consult. Await recommendations and input -Patient will be tentatively scheduled for debridement of sacral decubitus ulcer on Sunday with Dr. Mclaughlin Nurse practitioner note has been reviewed by physician. Signing provider agrees with the documented findings, assessment, and plan of care. Past Medical History Past Medical History: Hypertension Additional Past Medical History / Comment(s): depression anxiety History of Any Multi-Drug Resistant Organisms: None Reported Past Surgical History: Section, Cholecystectomy, Hysterectomy, Tonsillectomy Additional Past Surgical History / Comment(s): eye Past Psychological History: Anxiety, Depression Smoking Status: Never smoker Past Alcohol Use History: None Reported Past Drug Use History: None Reported Medications and Allergies Home Medications Medication Instructions Recorded Confirmed Type Apixaban [Eliquis] 5 mg PO BID 07/29/19 07/29/19 History Hydrochlorothiazide 12.5 mg PO DAILY 07/29/19 07/29/19 History Sertraline [Zoloft] 25 mg PO DAILY 07/29/19 07/29/19 History traMADol-ACETAMINOP 37.5-325MG 1 tab PO QID PRN 07/29/19 07/29/19 History [Ultracet] Allergies Allergy/AdvReac Type Severity Reaction Status Date / Time azithromycin [From Zithromax] Allergy Mild Nausea & Verified 07/29/19 15:50 Vomiting & Diarrhea Iodinated Contrast Media Allergy Mild Unknown Verified 07/29/19 15:50 [Iodinated Contrast Media - IV Dye] Penicillins Allergy Itching Verified 07/29/19 15:50 Surgical - Exam Vital Signs Temp Pulse Resp BP Pulse Ox 98.0 F 75 16 166/84 96 07/29/19 13:52 07/29/19 13:52 07/29/19 13:52 07/29/19 13:52 07/29/19 13:52 Results - Labs 07/30/19 07:03 07/30/19 07:03 Abnormal Lab Results - Last 24 Hours (Table) 07/29/19 07/29/19 07/30/19 Range/Units 14:06 14:06 07:03 WBC 11.4 H 12.6 H (3.8-10.6) k/uL MCHC 30.7 L (31.0-37.0) g/dL Plt Count 484 H 458 H (150-450) k/uL Neutrophils # 8.0 H 11.0 H (1.3-7.7) k/uL Lymphocytes # 0.8 L (1.0-4.8) k/uL ESR 79 H (0-20) mm/hr Sodium 135 L (137-145) mmol/L Glucose 103 H (74-99) mg/dL AST (14-36) U/L ALT (4-34) U/L Alkaline Phosphatase (38-126) U/L C-Reactive Protein 52.4 H (<10.0) mg/L Total Protein (6.3-8.2) g/dL Albumin 3.1 L (3.5-5.0) g/dL 07/30/19 Range/Units 07:03 WBC (3.8-10.6) k/uL MCHC (31.0-37.0) g/dL Plt Count (150-450) k/uL Neutrophils # (1.3-7.7) k/uL Lymphocytes # (1.0-4.8) k/uL ESR (0-20) mm/hr Sodium (137-145) mmol/L Glucose 123 H (74-99) mg/dL AST 335 H (14-36) U/L ALT 231 H (4-34) U/L Alkaline Phosphatase 267 H (38-126) U/L C-Reactive Protein (<10.0) mg/L Total Protein 6.2 L (6.3-8.2) g/dL Albumin 2.8 L (3.5-5.0) g/dL Diabetes panel 07/29/19 07/30/19 Range/Units 14:06 07:03 Sodium 135 L 137 (137-145) mmol/L Potassium 3.6 5.0 (3.5-5.1) mmol/L Chloride 102 104 (98-107) mmol/L Carbon Dioxide 28 25 (22-30) mmol/L BUN 11 13 (7-17) mg/dL Creatinine 0.60 0.68 (0.52-1.04) mg/dL Glucose 103 H 123 H (74-99) mg/dL Calcium 8.9 8.6 (8.4-10.2) mg/dL AST 34 335 H (14-36) U/L ALT 22 231 H (4-34) U/L Alkaline Phosphatase 86 267 H (38-126) U/L Total Protein 6.4 6.2 L (6.3-8.2) g/dL Albumin 3.1 L 2.8 L (3.5-5.0) g/dL Calcium panel 07/29/19 07/30/19 Range/Units 14:06 07:03 Calcium 8.9 8.6 (8.4-10.2) mg/dL Albumin 3.1 L 2.8 L (3.5-5.0) g/dL Pituitary panel 07/29/19 07/30/19 Range/Units 14: 07:03 Sodium 135 L 137 (137-145) mmol/L Potassium 3.6 5.0 (3.5-5.1) mmol/L Chloride 102 104 (98-107) mmol/L Carbon Dioxide 28 25 (22-30) mmol/L BUN 11 13 (7-17) mg/dL Creatinine 0.60 0.68 (0.52-1.04) mg/dL Glucose 103 H 123 H (74-99) mg/dL Calcium 8.9 8.6 (8.4-10.2) mg/dL Adrenal panel 07/29/19 07/30/19 Range/Units 14: 07:03 Sodium 135 L 137 (137-145) mmol/L Potassium 3.6 5.0 (3.5-5.1) mmol/L Chloride 102 104 (98-107) mmol/L Carbon Dioxide 28 25 (22-30) mmol/L BUN 11 13 (7-17) mg/dL Creatinine 0.60 0.68 (0.52-1.04) mg/dL Glucose 103 H 123 H (74-99) mg/dL Calcium 8.9 8.6 (8.4-10.2) mg/dL Total Bilirubin 0.6 1.0 (0.2-1.3) mg/dL AST 34 335 H (14-36) U/L ALT 22 231 H (4-34) U/L Alkaline Phosphatase 86 267 H (38-126) U/L Total Protein 6.4 6.2 L (6.3-8.2) g/dL Albumin 3.1 L 2.8 L (3.5-5.0) g/dL
[2019-07-30 14:09] VITALS: BMI 27.3
--- NOTE | 2019-07-30 16:20 | P.HPIM ---
History of Present Illness H&P Date: 07/30/19 Chief Complaint: Infected ulcer History of presenting complaint: This is a 83-year-old patient of visiting physicians Dr. Valenzuela. Chronic stable medical conditions include primary osteoarthritis, essential hypertension, depression and anxiety,. Patient has an infected decubitus ulcer in the sacral area. She just finished a course of ciprofloxacin. The home health nurse felt that was getting worse more infected. Patient has some pain in that affected area. There been no reported fever or chills. And brought to the ER. Antibiotics were started. Gen. surgery and infectious disease was consulted. Patient lives with her daughter. Was also a caregiver. Patient has a hospital bed and often sits in wheelchair for short periods. They also will lift chair. Patient has a contracture of the left hand and is right-handed. Patient can only gives simple answers. Because of dementia. No family the bedside Review of systems: GEN.: Tired EYES: None HEENT: None NECK: None RESPIRATORY: None CARDIOVASCULAR: None GASTROINTESTINAL: None GENITOURINARY: None MUSCULOSKELETAL: Joint pains DERMATOLOGICAL: Decub ulcer LYMPHATICS: None HEMATOLOGICAL: None PSYCHIATRY: Forgetful NEUROLOGICAL: None Past medical history: Hypertension, depression, anxiety, dementia, medical debility Physical examination: VITAL SIGNS: 98, 75, 16, 133/70, 96% on room air GENERAL: BMI 27.3, sitting up, awake. EYES: Pupils equal. Conjunctiva normal. HEENT: External appearance of nose and ears normal, oral cavity grossly normal. NECK: JVD not raised; masses not palpable. HEART: First and second heart sounds are normal; no edema. LUNGS: Respiratory rate normal; clear to auscultation. ABDOMEN: Soft, nontender, liver spleen not palpable, no masses palpable. PSYCH: Patient able to answer simple questions MUSCULOSKELETAL: Sacral decubitus ulcer. More details the nursing notes. NEUROLOGICAL: Cranial nerves grossly intact; no facial asymmetry, contraction of the left arm. Bilateral foot drops LYMPHATICS: No lymph nodes palpable in the axilla and neck INVESTIGATIONS, reviewed in the clinical context: White count 11.4 hemoglobin 12.5 platelets 484 potassium 3.6 creatinine 0.6 AST 335 ALT 231 alk phos 267 X-ray sacrum coccyx-difficult to exclude osseous erosion Assessment: -Infected sacral decubitus ulcer possibly stage III -Severe cognitive impairment. Late onset Alzheimer's dementia -Chronic medical debility -Chronic contracture of the left forearm -Depression not otherwise specified -Essential hypertension -Acute hepatitis could be drug-induced. We'll repeat the same. Before proceeding with decision -Reactive thrombocytosis Plan: Consultation was made to infectious disease and general surgery. Home medications be continued. Lovenox for DVT prophylaxis. IV fluids. Past Medical History Past Medical History: Hypertension Additional Past Medical History / Comment(s): depression anxiety History of Any Multi-Drug Resistant Organisms: None Reported Past Surgical History: Section, Cholecystectomy, Hysterectomy, Tonsillectomy Additional Past Surgical History / Comment(s): eye Past Psychological History: Anxiety, Depression Smoking Status: Never smoker Past Alcohol Use History: None Reported Past Drug Use History: None Reported Medications and Allergies Home Medications Medication Instructions Recorded Confirmed Type Apixaban [Eliquis] 5 mg PO BID 07/29/19 07/29/19 History Hydrochlorothiazide 12.5 mg PO DAILY 07/29/19 07/29/19 History Sertraline [Zoloft] 25 mg PO DAILY 07/29/19 07/29/19 History traMADol-ACETAMINOP 37.5-325MG 1 tab PO QID PRN 07/29/19 07/29/19 History [Ultracet] Allergies Allergy/AdvReac Type Severity Reaction Status Date / Time azithromycin [From Zithromax] Allergy Mild Nausea & Verified 07/29/19 15:50 Vomiting & Diarrhea Iodinated Contrast Media Allergy Mild Unknown Verified 07/29/19 15:50 [Iodinated Contrast Media - IV Dye] Penicillins Allergy Itching Verified 07/29/19 15:50 Physical Exam Vitals: Vital Signs Temp Pulse Pulse Resp BP BP Pulse Ox 07/30/19 07:00 98.6 F 76 20 116/63 93 L 07/30/19 04:41 16 07/30/19 03:45 98.9 F 128/73 93 L 07/30/19 00:00 18 07/29/19 19:20 98.8 F 99 129/74 92 L 07/29/19 17:17 97.9 F 82 18 121/68 94 L 07/29/19 16:19 98.3 F 68 18 133/70 94 L 07/29/19 13:52 98.0 F 75 16 166/84 96 Intake and Output 07/29/19 07/30/19 07/30/19 22:59 06:59 14:59 Other: Voiding Method Diaper Diaper Incontinent Incontinent # Voids 1 1 Weight 63.503 kg Results CBC & Chem 7: 07/30/19 07:03 07/30/19 07:03 Labs: Abnormal Lab Results - Last 24 Hours (Table) 07/29/19 07/29/19 07/30/19 Range/Units 14:06 14:06 07:03 WBC 11.4 H 12.6 H (3.8-10.6) k/uL MCHC 30.7 L (31.0-37.0) g/dL Plt Count 484 H 458 H (150-450) k/uL Neutrophils # 8.0 H 11.0 H (1.3-7.7) k/uL Lymphocytes # 0.8 L (1.0-4.8) k/uL ESR 79 H (0-20) mm/hr Sodium 135 L (137-145) mmol/L Glucose 103 H (74-99) mg/dL AST (14-36) U/L ALT (4-34) U/L Alkaline Phosphatase (38-126) U/L C-Reactive Protein 52.4 H (<10.0) mg/L Total Protein (6.3-8.2) g/dL Albumin 3.1 L (3.5-5.0) g/dL 07/30/19 Range/Units 07:03 WBC (3.8-10.6) k/uL MCHC (31.0-37.0) g/dL Plt Count (150-450) k/uL Neutrophils # (1.3-7.7) k/uL Lymphocytes # (1.0-4.8) k/uL ESR (0-20) mm/hr Sodium (137-145) mmol/L Glucose 123 H (74-99) mg/dL AST 335 H (14-36) U/L ALT 231 H (4-34) U/L Alkaline Phosphatase 267 H (38-126) U/L C-Reactive Protein (<10.0) mg/L Total Protein 6.2 L (6.3-8.2) g/dL Albumin 2.8 L (3.5-5.0) g/dL Thrombosis Risk Factor Assmnt - Choose All That Apply Any of the Below Risk Factors Present?: Yes Other Risk Factors: Yes Each Risk Factor Represents 3 Points: Age 75 years or older Thrombosis Risk Factor Assessment Total Risk Factor Score: 3 Thrombosis Risk Factor Assessment Level: Moderate Risk
[2019-07-30] MEDS: metroNIDAZOLE 500 MG TAB PO SCH ×2 (16:56→21:57)
[2019-07-30] MEDS: CEFEPIME 2 GM in SODIUM CHLORIDE 0.9% 100 ML IVPB SCH (16:56)
[2019-07-30 17:44] LABS: Albumin 3.3 g/dL (3.5-5.0); Potassium 4.4 mmol/L (3.5-5.1); Total Bilirubin 0.7 mg/dL (0.2-1.3); Total Protein 6.6 g/dL (6.3-8.2)
[2019-07-30] MEDS: ENOXAPARIN 40 MG/0.4 ML SYRINGE SQ SCH (21:56)
--- NOTE | 2019-07-30 23:22 | P.CONS ---
History of Present Illness - Reason for Consult Consult date: 07/30/19 infected sacral pressure ulcer Requesting physician: Fritz Blair - Chief Complaint worsening sacral wound x few days - History of Present Illness Patient is 83-year-old female who was brought into the ER by family yesterday afternoon for evaluation of fall worsening sacral pressure ulcer and this patient apparently did have a wound that has been there for couple of weeks and being managed by the home care nurses patient home care nurse saw the patient yesterday and noticed the wound was getting worse and refer the patient into the ER patient apparently recently finished a course of oral Cipro patient is complaining of pain to the ER physician on arrival to the ER but no fever no chills on presentation to the hospital patient was afebrile patient did have white count of 11.4 with a left shift with a left shift kidney function were normal patient did have x-rays of the sacrum area we did shows a lucency projecting over the skin segment tissue difficult to exclude or she is erosion patient was started on vancomycin because of her penicillin allergy infectious was consulted for further recommendation of antibiotic therapy patient to my evaluation denies having any fever or any chills denies any chest pain or shortness of the cough no nausea vomiting abdominal pain complaints of pain to the sacral area but unable to quantify it any further and no diarrhea. Review of Systems Positive point has been mentioned in HPI rest of the systems are negative Past Medical History Past Medical History: Hypertension Additional Past Medical History / Comment(s): depression anxiety History of Any Multi-Drug Resistant Organisms: None Reported Past Surgical History: Section, Cholecystectomy, Hysterectomy, Tonsillectomy Additional Past Surgical History / Comment(s): eye Past Psychological History: Anxiety, Depression Smoking Status: Never smoker Past Alcohol Use History: None Reported Past Drug Use History: None Reported Medications and Allergies Home Medications Medication Instructions Recorded Confirmed Type Apixaban [Eliquis] 5 mg PO BID 07/29/19 07/29/19 History Hydrochlorothiazide 12.5 mg PO DAILY 07/29/19 07/29/19 History Sertraline [Zoloft] 25 mg PO DAILY 07/29/19 07/29/19 History traMADol-ACETAMINOP 37.5-325MG 1 tab PO QID PRN 07/29/19 07/29/19 History [Ultracet] Allergies Allergy/AdvReac Type Severity Reaction Status Date / Time azithromycin [From Zithromax] Allergy Mild Nausea & Verified 07/29/19 15:50 Vomiting & Diarrhea Iodinated Contrast Media Allergy Mild Unknown Verified 07/29/19 15:50 [Iodinated Contrast Media - IV Dye] Penicillins Allergy Itching Verified 07/29/19 15:50 Physical Exam Vitals: Vital Signs Temp Pulse Pulse Resp BP BP Pulse Ox 07/30/19 07:00 98.6 F 76 20 116/63 93 L 07/30/19 04:41 16 07/30/19 03:45 98.9 F 128/73 93 L 07/30/19 00:00 18 07/29/19 19:20 98.8 F 99 129/74 92 L 07/29/19 17:17 97.9 F 82 18 121/68 94 L 07/29/19 16:19 98.3 F 68 18 133/70 94 L Intake and Output 07/29/19 07/30/19 07/30/19 22:59 06:59 14:59 Other: Voiding Method Diaper Diaper Incontinent Incontinent # Voids 1 1 Weight 63.503 kg 63.503 kg GENERAL DESCRIPTION: Elderly female lying in bed, no distress. No tachypnea or accessory muscle of respiration use. HEENT: Shows Pallor , no scleral icterus. Oral mucous membrane is dry. NECK: Trachea central, no thyromegaly. LUNGS: Unlabored breathing. Clear to auscultation anteriorly. No wheeze or crackle. HEART: S1, S2, regular rate and rhythm. ABDOMEN: Soft, no tenderness , guarding or rigidity EXTREMITIES: No edema of feet. SKIN: No rash, no masses palpable. Patient did have unstageable sacral pressure ulcer with slough and necrotic tissue surrounding redness and foul-smelling drainage NEUROLOGICAL: The patient is awake, alert, oriented x3, mood and affect normal. Results CBC & Chem 7: 07/30/19 07:03 07/30/19 17:17 Labs: Abnormal Lab Results - Last 24 Hours (Table) 07/29/19 07/30/19 07/30/19 Range/Units 14:06 07:03 07:03 WBC 12.6 H (3.8-10.6) k/uL MCHC 30.7 L (31.0-37.0) g/dL Plt Count 458 H (150-450) k/uL Neutrophils # 11.0 H (1.3-7.7) k/uL Lymphocytes # 0.8 L (1.0-4.8) k/uL ESR 79 H (0-20) mm/hr Glucose 123 H (74-99) mg/dL AST 335 H (14-36) U/L ALT 231 H (4-34) U/L Alkaline Phosphatase 267 H (38-126) U/L Total Protein 6.2 L (6.3-8.2) g/dL Albumin 2.8 L (3.5-5.0) g/dL Assessment and Plan Assessment: 1-patient with infected sacral pressure ulcer which seems deep and concern for possible osteomyelitis with abnormality seen on the plain x-rays. We will need to cover for the polymicrobial leah usually associated with these types of infection 2-patient with multiple antibiotic allergies that would limit the number of antibiotics safe to use (1) Infected pressure ulcer Current Visit: Yes Status: Acute Code(s): L89.90 - PRESSURE ULCER OF UNSPECIFIED SITE, UNSPECIFIED STAGE; L08.9 - LOCAL INFECTION OF THE SKIN AND SUBCUTANEOUS TISSUE, UNSP SNOMED Code(s): 518272855 Plan: 1-await surgical debridement and deep culture both aerobic anaerobic and will schedule for Sunday morning 2-vancomycin pharmacy to dose her with a target trough of 15 while watching her kidney function and Vanco trough closely. 3-we will add cefepime 2 g every 12 and Flagyl p.o. 5 mg 3 times a day 4-local wound care with marshall honey followed by moist dressing keep the area of the pressure We will follow on clinical condition and cultures to further adjust medication if needed Thank you for this consultation we will follow the patient along with you Time with Patient: Greater than 30
[2019-07-31] MEDS: CEFEPIME 2 GM in SODIUM CHLORIDE 0.9% 100 ML IVPB SCH ×3 (00:59→20:37)
[2019-07-31] MEDS: SODIUM CHLORIDE 0.9% 1,000 ML IV SCH ×2 (01:44→16:49)
[2019-07-31] MEDS: VANCOMYCIN 1,250 MG in SODIUM CHLORIDE 0.9% 250 ML IVPB SCH ×2 (02:36→17:21)
[2019-07-31 08:30] LABS: Albumin 3.1 g/dL (3.5-5.0); Calcium 9.1 mg/dL (8.4-10.2); Potassium 4.3 mmol/L (3.5-5.1); Total Protein 6.6 g/dL (6.3-8.2)
[2019-07-31] MEDS: ENOXAPARIN 40 MG/0.4 ML SYRINGE SQ SCH (08:32)
[2019-07-31] MEDS: SERTRALINE 25 MG TAB PO SCH (08:32)
[2019-07-31] MEDS: HYDROCHLOROTHIAZIDE 12.5 MG CAP PO SCH (08:32)
[2019-07-31] MEDS: metroNIDAZOLE 500 MG TAB PO SCH ×3 (08:32→22:08)
[2019-07-31] MEDS: traMADol-ACETAMINOP 37.5-325MG 1 EACH TAB PO PRN (09:43)
--- NOTE | 2019-07-31 12:55 | P.PN ---
Subjective Progress Note Date: 07/31/19 CHIEF COMPLAINT: Infected decubitus sacral ulcer HISTORY OF PRESENT ILLNESS: Patient examined at the bedside with Dr. Mclaughlin. Patient denies pain or discomfort. Vital signs are stable. PHYSICAL EXAM: VITAL SIGNS: Reviewed. GENERAL: Well-developed in no acute distress. HEENT: No sclera icterus. Extraocular movements grossly intact. Moist buccal mucosa. Head is atraumatic, normocephalic. ABDOMEN: Soft. Nondistended. Nontender. . NEUROLOGIC: Alert and oriented x 1 SKIN: Patient with evidence of an unstageable sacral decubitus ulcer ASSESSMENT: 1. Unstageable sacral decubitus ulcer 2. Leukocytosis PLAN: -Continue to hold Eliquis -Diet as tolerated -Continue antibiotics. Monitor WBC -Patient scheduled for debridement of sacral decubitus ulcer tomorrow with Dr. Mclaughlin Nurse practitioner note has been reviewed by physician. Signing provider agrees with the documented findings, assessment, and plan of care. Objective - Vital Signs Vital signs: Vital Signs Temp 100.0 F H 07/31/19 07:00 Pulse 69 07/31/19 07:00 Resp 24 07/31/19 07:00 BP 101/63 07/31/19 07:00 Pulse Ox 98 07/31/19 07:00 Intake & Output 07/30/19 07/31/19 07/31/19 18:59 06:59 18:59 Output Total 50 Balance -50 Weight 63.503 kg Output: Urine 50 Other: Voiding Method Diaper Diaper Diaper Incontinent Incontinent Incontinent - Labs CBC & Chem 7: 07/30/19 07:03 07/31/19 07:38 Labs: Abnormal Lab Results - Last 24 Hours (Table) 07/30/19 07/31/19 Range/Units 17:17 07:38 Sodium 136 L (137-145) mmol/L Carbon Dioxide 21 L (22-30) mmol/L BUN 24 H (7-17) mg/dL Glucose 115 H 125 H (74-99) mg/dL AST 231 H 116 H (14-36) U/L ALT 207 H 160 H (4-34) U/L Alkaline Phosphatase 278 H 232 H (38-126) U/L Albumin 3.3 L 3.1 L (3.5-5.0) g/dL Microbiology - Last 24 Hours (Table) 07/29/19 16:21 Blood Culture - Preliminary Blood No Growth after 24 hours
--- NOTE | 2019-07-31 17:35 | P.PN ---
Progress Note - Text Progress Note Date: 07/31/19 Chief Complaint: Infected ulcer History of presenting complaint: This is a 83-year-old patient of visiting physicians Dr. Valenzuela. Chronic stable medical conditions include primary osteoarthritis, essential hypertension, depression and anxiety,. Patient has an infected decubitus ulcer in the sacral area. She just finished a course of ciprofloxacin. The home health nurse felt that was getting worse more infected. Patient has some pain in that affected area. There been no reported fever or chills. And brought to the ER. Antibiotics were started. Gen. surgery and infectious disease was consulted. Patient lives with her daughter. Was also a caregiver. Patient has a hospital bed and often sits in wheelchair for short periods. They also will lift chair. Patient has a contracture of the left hand and is right-handed. Patient can only gives simple answers. Because of dementia. Admitted with-infected decubitus ulcer Today-sitting up in bed. Tolerating some diet. Scheduled for surgery tomorrow. No new issues. Review of systems: Was done for constitutional, cardiovascular, GI, pulmonary. relevant finding as above Active Medications Acetaminophen (Tylenol Tab) 650 mg PO Q6HR PRN PRN Reason: Mild Pain or Fever > 100.5 Last Admin: 07/30/19 21:56 Dose: 650 mg Documented by: Enoxaparin Sodium (Lovenox) 40 mg SQ DAILY [facility] Last Admin: 07/31/19 08:32 Dose: 40 mg Documented by: Hydrochlorothiazide (Hydrodiuril) 12.5 mg PO DAILY [facility] Last Admin: 07/31/19 08:32 Dose: 12.5 mg Documented by: Sodium Chloride (Saline 0.9%) 1,000 mls @ 60 mls/hr IV .[id number] [facility] Last Admin: 07/31/19 16:49 Dose: Not Given Documented by: Vancomycin HCl 1,250 mg/ (Sodium Chloride) 250 mls @ 125 mls/hr IVPB Q16H [facility] Last Admin: 07/31/19 17:21 Dose: 125 mls/hr Documented by: Cefepime HCl 2 gm/ Sodium (Chloride) 100 mls @ 200 mls/hr IVPB Q12HR [facility] Last Admin: 07/31/19 08:31 Dose: 200 mls/hr Documented by: Metronidazole (Flagyl) 500 mg PO TID [facility] Last Admin: 07/31/19 15:42 Dose: 500 mg Documented by: Miscellaneous Information (Vancomycin Trough Due) 0 each MISCELLANE DIRECTED ONE Stop: 08/01/19 09:01 Naloxone HCl (Narcan) 0.2 mg IV Q2M PRN PRN Reason: Opioid Reversal Ondansetron HCl (Zofran) 4 mg IVP Q8HR PRN PRN Reason: Nausea And Vomiting Sertraline HCl (Zoloft) 25 mg PO DAILY [facility] Last Admin: 07/31/19 08:32 Dose: 25 mg Documented by: Tramadol/Acetaminophen (Ultracet) 1 each PO QID PRN PRN Reason: Pain Last Admin: 07/31/19 09:43 Dose: 1 each Documented by: Physical examination: VITAL SIGNS: 100, 69, 24, 101/63, 98% on room air GENERAL: Propped up in bed, awake EYES: Pupils equal. Conjunctiva normal. NECK: JVD not raised; masses not palpable. HEART: First and second heart sounds are normal; no edema. LUNGS: Respiratory rate normal; clear to auscultation. ABDOMEN: Soft, nontender, liver spleen not palpable, no masses palpable. PSYCH: Patient able to answer simple questions MUSCULOSKELETAL: Sacral decubitus ulcer. More details the nursing notes. NEUROLOGICAL: Cranial nerves grossly intact; no facial asymmetry, contraction of the left arm. Bilateral foot drops INVESTIGATIONS, reviewed in the clinical context: Potassium 4.3 creatinine 0.85 AST 116 ALT 160 Previous testing White count 11.4 hemoglobin 12.5 platelets 484 potassium 3.6 creatinine 0.6 AST 335 ALT 231 alk phos 267 X-ray sacrum coccyx-difficult to exclude osseous erosion Assessment: -Infected sacral decubitus ulcer possibly stage III-pending surgery -Severe cognitive impairment. Late onset Alzheimer's dementia -Chronic medical debility -Chronic contracture of the left forearm -Depression not otherwise specified -Essential hypertension -Acute hepatitis could be drug-induced.-Improving -Reactive thrombocytosis Plan: Patient on IV cefepime and vancomycin. Eliquis has been held.'s. Scheduled for debridement tomorrow.
--- NOTE | 2019-07-31 21:42 | PN ---
PROGRESS NOTE DATE OF SERVICE: 07/31/2019 REASON FOR FOLLOWUP: Infected sacral pressure ulcer. INTERVAL HISTORY: The patient did have a low-grade fever of 100 this morning. The patient has been afebrile since then. She was slightly lethargic today and was unable to provide any history. No vomiting or diarrhea has been reported by the nursing staff. PHYSICAL EXAMINATION: Blood pressure 144/80 with a pulse of 75, temperature 98.6. She is 94% on room air. General description is an elderly female lying in bed in no distress. RESPIRATORY SYSTEM: Unlabored breathing. Clear to auscultation anteriorly. HEART: S1, S2. Regular rate and rhythm. ABDOMEN: Soft. No tenderness. LABS: BUN of 24, creatinine 0.85. Liver enzymes are mildly elevated, though trending down. Blood culture has been negative. DIAGNOSTIC IMPRESSION AND PLAN: Patient with infected sacral pressure ulcer with concern for sacral osteomyelitis. Possible debridement tomorrow. Deep culture should be obtained to guide antibiotic therapy on discharge. Currently covered with cefepime and vancomycin; to continue and monitor clinical course closely. MMODL / IJN: [id number] /
[2019-08-01] MEDS: ACETAMINOPHEN TAB 325 MG TAB PO PRN (02:58)
[2019-08-01] MEDS: ENOXAPARIN 40 MG/0.4 ML SYRINGE SQ SCH (07:13)
[2019-08-01] MEDS: metroNIDAZOLE 500 MG TAB PO SCH ×3 (07:31→22:46)
[2019-08-01] MEDS: CEFEPIME 2 GM in SODIUM CHLORIDE 0.9% 100 ML IVPB SCH ×2 (07:31→21:31)
[2019-08-01] MEDS: SERTRALINE 25 MG TAB PO SCH (07:31)
[2019-08-01] MEDS: SODIUM CHLORIDE 0.9% 1,000 ML IV SCH ×2 (07:31→15:58)
[2019-08-01] MEDS: HYDROCHLOROTHIAZIDE 12.5 MG CAP PO SCH (07:31)
[2019-08-01] MEDS ORDERED: VANCOMYCIN TROUGH DUE 1 EACH MISC MISCELLANE ONE (09:00)
[2019-08-01 10:15] LABS: INR 1.1 (<1.2); Prothrombin Time 11.1 sec (9.0-12.0)
[2019-08-01] MEDS ORDERED: IV FLUID CONTINUATION 1,000 ML IV ONE (11:15)
[2019-08-01] MEDS ORDERED: ONDANSETRON 4 MG/2 ML VIAL IVP ONE (11:35)
[2019-08-01] MEDS ORDERED: HEPARIN SODIUM,PORCINE 5,000 UNIT/ML 1 ML VIAL SQ ONE (13:16)
[2019-08-01] MEDS ORDERED: fentaNYL (PF) 50 MCG/ML 2 ML AMP ONE (13:53)
[2019-08-01] MEDS ORDERED: BUPIVACAIN-EPI 0.25%-1:200,000 30 ML VIAL SQ ONE (13:53)
[2019-08-01] MEDS ORDERED: MIDAZOLAM 2 MG/2 ML VIAL ONE (13:53)
[2019-08-01] MEDS ORDERED: KETAMINE 10 MG/ML 20 ML VIAL ONE (13:53)
--- NOTE | 2019-08-01 14:35 | P.OP ---
Date of Procedure: 08/01/19 Preoperative Diagnosis: Decubitus ulcer Postoperative Diagnosis: Decubitus ulcer Procedure(s) Performed: Debridement of decubitus ulcer Anesthesia: MAC Surgeon: Kirt Mclaughlin Pathology: other Condition: stable Disposition: PACU Description of Procedure: Patient's placed on the operative table in the prone position where she received general anesthesia. Her decubital ulcer was prepped and draped usual fashion. The wound was cultured. The ulcer had necrotic skin and fat and muscle. The area was sharply debrided with a 15 blade. Necrotic tissue was excised. The area measured roughly 15 x 10 x 3 cm deep. This contained necrotic fat skin and muscle. The wounds were hemostased. No bleeding was seen. The wound was then packed with wet-to-dry Kerlix. Patient tolerated the procedure well.
[2019-08-01] MEDS ORDERED: HYDROmorphone 0.5 MG/0.5 ML SYRINGE IVP ONE (14:55)
[2019-08-01] MEDS ORDERED: hydrALAZINE HCL 20 MG/ML 1 ML VIAL IVP ONE (15:10)
[2019-08-01] MEDS ORDERED: SODIUM CHLORIDE 0.9% 1,000 ML IV ONE (15:30)
[2019-08-01] MEDS: traMADol-ACETAMINOP 37.5-325MG 1 EACH TAB PO PRN (17:32)
[2019-08-01] MEDS ORDERED: VANCOMYCIN 1,250 MG in SODIUM CHLORIDE 0.9% 250 ML IVPB SCH (18:00)
[2019-08-01] MEDS: HYDROmorphone 1 MG/ML 1 ML SYRINGE IVP PRN (18:12)
--- NOTE | 2019-08-01 20:46 | P.PN ---
Progress Note - Text Progress Note Date: 08/01/19 Chief Complaint: Infected ulcer History of presenting complaint: This is a 83-year-old patient of visiting physicians Dr. Valenzuela. Chronic stable medical conditions include primary osteoarthritis, essential hypertension, depression and anxiety,. Patient has an infected decubitus ulcer in the sacral area. She just finished a course of ciprofloxacin. The home health nurse felt that was getting worse more infected. Patient has some pain in that affected area. There been no reported fever or chills. And brought to the ER. Antibiotics were started. Gen. surgery and infectious disease was consulted. Patient lives with her daughter. Was also a caregiver. Patient has a hospital bed and often sits in wheelchair for short periods. They also will lift chair. Patient has a contracture of the left hand and is right-handed. Patient can only gives simple answers. Because of dementia. Admitted with-infected decubitus ulcer. Started on IV vancomycin, IV cefepime. Today-went for wound debridement today. Down of the muscles were debrided. Tired postprocedure. Review of systems: Was done for constitutional, cardiovascular, GI, pulmonary. relevant finding as above Active Medications Acetaminophen (Tylenol Tab) 650 mg PO Q6HR PRN PRN Reason: Mild Pain or Fever > 100.5 Last Admin: 08/01/19 02:58 Dose: 650 mg Documented by: Enoxaparin Sodium (Lovenox) 40 mg SQ DAILY [facility] Last Admin: 08/01/19 07:13 Dose: Not Given Documented by: Hydrochlorothiazide (Hydrodiuril) 12.5 mg PO DAILY [facility] Last Admin: 08/01/19 07:31 Dose: 12.5 mg Documented by: Hydromorphone HCl (Dilaudid) 1 mg IVP Q6H PRN PRN Reason: Analgesia Last Admin: 08/01/19 18:12 Dose: 1 mg Documented by: Sodium Chloride (Saline 0.9%) 1,000 mls @ 60 mls/hr IV .[id number] [facility] Last Admin: 08/01/19 15:58 Dose: 60 mls/hr Documented by: Cefepime HCl 2 gm/ Sodium (Chloride) 100 mls @ 200 mls/hr IVPB Q12HR [facility] Last Admin: 08/01/19 07:31 Dose: 200 mls/hr Documented by: Vancomycin HCl 1,250 mg/ (Sodium Chloride) 250 mls @ 125 mls/hr IVPB Q24H [facility] Last Admin: 08/01/19 16:05 Dose: 125 mls/hr Documented by: Metronidazole (Flagyl) 500 mg PO TID [facility] Last Admin: 08/01/19 15:58 Dose: 500 mg Documented by: Naloxone HCl (Narcan) 0.2 mg IV Q2M PRN PRN Reason: Opioid Reversal Ondansetron HCl (Zofran) 4 mg IVP Q8HR PRN PRN Reason: Nausea And Vomiting Last Admin: 08/01/19 18:13 Dose: 4 mg Documented by: Sertraline HCl (Zoloft) 25 mg PO DAILY [facility] Last Admin: 08/01/19 07:31 Dose: 25 mg Documented by: Tramadol/Acetaminophen (Ultracet) 1 each PO QID PRN PRN Reason: Pain Last Admin: 08/01/19 17:32 Dose: 1 each Documented by: Physical examination: VITAL SIGNS: 99.2, 85, 16, 90/59, 96% on room air GENERAL: Propped up in bed, tired EYES: Pupils equal. Conjunctiva normal. NECK: JVD not raised; masses not palpable. HEART: First and second heart sounds are normal; no edema. LUNGS: Respiratory rate normal; clear to auscultation. ABDOMEN: Soft, nontender, liver spleen not palpable, no masses palpable. PSYCH: Tired MUSCULOSKELETAL: Sacral decubitus ulcer. More details the nursing notes. NEUROLOGICAL: Cranial nerves grossly intact; no facial asymmetry, contraction of the left arm. Bilateral foot drops INVESTIGATIONS, reviewed in the clinical context: Potassium 4.3 creatinine 0.85 AST 116 ALT 160 Previous testing White count 11.4 hemoglobin 12.5 platelets 484 potassium 3.6 creatinine 0.6 AST 335 ALT 231 alk phos 267 X-ray sacrum coccyx-difficult to exclude osseous erosion Assessment: -Infected sacral decubitus ulcer possibly stage III-status post debridement today -Severe cognitive impairment. Late onset Alzheimer's dementia -Chronic medical debility -Chronic contracture of the left forearm -Depression not otherwise specified -Essential hypertension -Acute hepatitis could be drug-induced.-Improving -Reactive thrombocytosis Plan: Continue on IV cefepime and vancomycin. Other medications to continue. Repeat labs.
--- NOTE | 2019-08-02 00:35 | PN ---
PROGRESS NOTE DATE OF SERVICE: 08/01/2019 REASON FOR FOLLOW UP: Infected sacral pressure ulcer. INTERVAL HISTORY: The patient is currently afebrile. She was taken to the OR and is status post debridement of her sacral wound. The patient tolerated the procedure. Culture has been obtained which is currently pending. Denies having any chest pain, shortness of breath or cough. No abdominal pain. No diarrhea. PHYSICAL EXAMINATION: Blood pressure 125/75 with a pulse of 86. Temperature 98. She is 96% on room air. General description: The patient is an elderly aged female lying in bed in no distress. Respiratory system: Unlabored breathing, clear to auscultation anteriorly. Heart S1, S2. Regular rate and rhythm. Abdomen soft, no tenderness. LABS: Creatinine 0.85. Vancomycin trough slightly high at 25.8. Blood culture negative. DIAGNOSTIC IMPRESSION AND PLAN: Patient with stage IV sacral pressure ulcer infected status post surgical debridement. This patient did have MULTIPLE ANTIBIOTIC ALLERGIES. Patient is currently covered with vancomycin and cefepime, Flagyl because of her allergies to continue adjusting antibiotic further based on culture report. Continue supportive care. MMODL / IJN: [id number] /
[2019-08-02 06:50] LABS: HCT 36.8 % (34.0-46.0); HGB 11.6 gm/dL (11.4-16.0); MCH 27.4 pg (25.0-35.0); MCHC 31.4 g/dL (31.0-37.0); MCV 87.4 fL (80.0-100.0); Mean Platelet Volume 7.9; Platelet Count 548 k/uL (150-450); RBC 4.21 m/uL (3.80-5.40); RDW 13.3 % (11.5-15.5); WBC 18.4 k/uL (3.8-10.6)
[2019-08-02 07:02] LABS: Calcium 8.7 mg/dL (8.4-10.2); Potassium 3.7 mmol/L (3.5-5.1)
[2019-08-02] MEDS: CEFEPIME 2 GM in SODIUM CHLORIDE 0.9% 100 ML IVPB SCH (09:14)
[2019-08-02] MEDS: HYDROCHLOROTHIAZIDE 12.5 MG CAP PO SCH (09:15)
[2019-08-02] MEDS: ENOXAPARIN 40 MG/0.4 ML SYRINGE SQ SCH (09:15)
[2019-08-02] MEDS: metroNIDAZOLE 500 MG TAB PO SCH ×3 (09:16→21:42)
[2019-08-02] MEDS: SERTRALINE 25 MG TAB PO SCH (09:16)
[2019-08-02] MEDS ORDERED: VANCOMYCIN IV PER PHARMACY 1 EACH MISC MISCELLANE PRN (09:35)
--- NOTE | 2019-08-02 10:25 | P.PN ---
Progress Note - Text Progress Note Date: 08/02/19 The patient is status post debridement of sacral decubitus wound. She receiving local wound care. Patient is stable for discharge per medicine.
[2019-08-02] MEDS: traMADol-ACETAMINOP 37.5-325MG 1 EACH TAB PO PRN (12:42)
--- NOTE | 2019-08-02 17:39 | P.PN ---
Progress Note - Text Progress Note Date: 08/02/19 Chief Complaint: Infected ulcer History of presenting complaint: This is a 83-year-old patient of visiting physicians Dr. Valenzuela. Chronic stable medical conditions include primary osteoarthritis, essential hypertension, depression and anxiety,. Patient has an infected decubitus ulcer in the sacral area. She just finished a course of ciprofloxacin. The home health nurse felt that was getting worse more infected. Patient has some pain in that affected area. There been no reported fever or chills. And brought to the ER. Antibiotics were started. Gen. surgery and infectious disease was consulted. Patient lives with her daughter. Was also a caregiver. Patient has a hospital bed and often sits in wheelchair for short periods. They also will lift chair. Patient has a contracture of the left hand and is right-handed. Patient can only gives simple answers. Because of dementia. Admitted with-infected decubitus ulcer. Started on IV vancomycin, IV cefepime. July 31 underwent debridement of the decubitus ulcer. Today-tired. Had about 50% breakfast. Review of systems: Was done for constitutional, cardiovascular, GI, pulmonary. relevant finding as above Active Medications Acetaminophen (Tylenol Tab) 650 mg PO Q6HR PRN PRN Reason: Mild Pain or Fever > 100.5 Last Admin: 08/01/19 02:58 Dose: 650 mg Documented by: Enoxaparin Sodium (Lovenox) 30 mg SQ DAILY [facility] Hydrochlorothiazide (Hydrodiuril) 12.5 mg PO DAILY [facility] Last Admin: 08/02/19 09:15 Dose: 12.5 mg Documented by: Hydromorphone HCl (Dilaudid) 1 mg IVP Q6H PRN PRN Reason: Analgesia Last Admin: 08/01/19 18:12 Dose: 1 mg Documented by: Sodium Chloride (Saline 0.9%) 1,000 mls @ 60 mls/hr IV .[id number] [facility] Last Admin: 08/01/19 15:58 Dose: 60 mls/hr Documented by: Cefepime HCl 1 gm/ Sodium (Chloride) 50 mls @ 100 mls/hr IVPB DAILY [facility] Metronidazole (Flagyl) 500 mg PO TID [facility] Last Admin: 08/02/19 15:40 Dose: 500 mg Documented by: Miscellaneous Information (Pharmacy To Dose Iv Vancomycin) 0 each MISCELLANE DIRECTED PRN PRN Reason: per protocol Naloxone HCl (Narcan) 0.2 mg IV Q2M PRN PRN Reason: Opioid Reversal Ondansetron HCl (Zofran) 4 mg IVP Q8HR PRN PRN Reason: Nausea And Vomiting Last Admin: 08/01/19 18:13 Dose: 4 mg Documented by: Sertraline HCl (Zoloft) 25 mg PO DAILY [facility] Last Admin: 08/02/19 09:16 Dose: 25 mg Documented by: Tramadol/Acetaminophen (Ultracet) 1 each PO QID PRN PRN Reason: Pain Last Admin: 08/02/19 12:42 Dose: 1 each Documented by: Physical examination: VITAL SIGNS: 98.9, 83, 17, 144/77, 93% on room air GENERAL: Laying in bed. EYES: Pupils equal. Conjunctiva normal. NECK: JVD not raised; masses not palpable. HEART: First and second heart sounds are normal; no edema. LUNGS: Respiratory rate normal; clear to auscultation. ABDOMEN: Soft, nontender, liver spleen not palpable, no masses palpable. PSYCH: Tired MUSCULOSKELETAL: Sacral decubitus ulcer. With dressing. NEUROLOGICAL: Cranial nerves grossly intact; no facial asymmetry, contraction of the left arm. Bilateral foot drops INVESTIGATIONS, reviewed in the clinical context: White count 18.4 hemoglobin 11.6 potassium 3.7 creatinine 1.45 Previous testing White count 11.4 hemoglobin 12.5 platelets 484 potassium 3.6 creatinine 0.6 AST 335 ALT 231 alk phos 267 X-ray sacrum coccyx-difficult to exclude osseous erosion Assessment: -Infected sacral decubitus ulcer possibly stage III-status post debridement July 31 -Severe cognitive impairment. 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 Plan: Continue on IV cefepime . We'll discuss with ID to hold off vancomycin. Add saline. Repeat labs in the morning.
[2019-08-02] MEDS: HYDROmorphone 1 MG/ML 1 ML SYRINGE IVP PRN (17:50)
[2019-08-02] MEDS: SODIUM CHLORIDE 0.9% 1,000 ML IV SCH (17:55)
--- NOTE | 2019-08-02 23:41 | PN ---
PROGRESS NOTE DATE OF SERVICE: 08/02/2019 REASON FOR FOLLOWUP: Infected sacral pressure ulcer. INTERVAL HISTORY: The patient is currently afebrile. She has been complaining of pain to the sacral wound area but unable to quantify any further. No chest pain or cough. No abdominal pain. No diarrhea. PHYSICAL EXAMINATION: On examination, her blood pressure is 119/70 with a pulse of 85, temperature 98.8. She is 94% on room air. General description is an elderly female lying in bed in no distress. Respiratory system: Unlabored breathing, clear to auscultation anteriorly. Heart S1, S2. Regular rate and rhythm. Abdomen soft. No tenderness. LABS: Hemoglobin 11.6, white count 18.4. Creatinine is up to 1.45. The sacral wound culture currently showing both gram-positive as well as gram-negative pathogen. DIAGNOSTIC IMPRESSION AND PLAN: Patient with infected sacral pressure ulcer status post debridement. Culture now showing multiple pathogen including both gram-positive as well as gram-negative. Patient unfortunately did have significant possibly multifactorial possibly related to vancomycin which will be discontinued. We will add daptomycin and monitor the cultures and adjust antibiotic further. Continue supportive care. MMODL / IJN: [id number] /
[2019-08-03] MEDS: HYDROmorphone 1 MG/ML 1 ML SYRINGE IVP PRN ×2 (03:13→12:33)
[2019-08-03 07:20] LABS: Calcium 8.5 mg/dL (8.4-10.2)
[2019-08-03 07:26] LABS: Vancomycin,Random 23.7 ug/mL
[2019-08-03] MEDS: ENOXAPARIN 30 MG/0.3 ML SYRINGE SQ SCH (09:19)
[2019-08-03] MEDS: HYDROCHLOROTHIAZIDE 12.5 MG CAP PO SCH (09:20)
[2019-08-03] MEDS: metroNIDAZOLE 500 MG TAB PO SCH ×3 (09:20→23:27)
[2019-08-03] MEDS: CEFEPIME 1 GM in SODIUM CHLORIDE 0.9% 50 ML IVPB SCH (10:28)
[2019-08-03] MEDS: traMADol-ACETAMINOP 37.5-325MG 1 EACH TAB PO PRN ×2 (10:52→23:26)
[2019-08-03] MEDS: SERTRALINE 25 MG TAB PO SCH (10:52)
[2019-08-03] MEDS ORDERED: POTASSIUM CHLORIDE ER 20 MEQ TAB.ER PO STA (17:47)
--- NOTE | 2019-08-03 17:49 | P.PN ---
Progress Note - Text Progress Note Date: 08/03/19 Chief Complaint: Infected ulcer History of presenting complaint: This is a 83-year-old patient of visiting physicians Dr. Valenzuela. Chronic stable medical conditions include primary osteoarthritis, essential hypertension, depression and anxiety,. Patient has an infected decubitus ulcer in the sacral area. She just finished a course of ciprofloxacin. The home health nurse felt that was getting worse more infected. Patient has some pain in that affected area. There been no reported fever or chills. And brought to the ER. Antibiotics were started. Gen. surgery and infectious disease was consulted. Patient lives with her daughter. Was also a caregiver. Patient has a hospital bed and often sits in wheelchair for short periods. They also will lift chair. Patient has a contracture of the left hand and is right-handed. Patient can only gives simple answers. Because of dementia. Admitted with-infected decubitus ulcer. Started on IV vancomycin, IV cefepime. July 31 underwent debridement of the decubitus ulcer. Acute kidney injury secondary to vancomycin toxicity. Discontinued. Started on daptomycin. Today-decreased oral intake. Some pain at the decubitus ulcer site. Patient getting repositioned. Review of systems: Was done for constitutional, cardiovascular, GI, pulmonary. relevant finding as above Active Medications Acetaminophen (Tylenol Tab) 650 mg PO Q6HR PRN PRN Reason: Mild Pain or Fever > 100.5 Last Admin: 08/01/19 02:58 Dose: 650 mg Documented by: Enoxaparin Sodium (Lovenox) 30 mg SQ DAILY [facility] Last Admin: 08/03/19 09:19 Dose: 30 mg Documented by: Hydrochlorothiazide (Hydrodiuril) 12.5 mg PO DAILY [facility] Last Admin: 08/03/19 09:20 Dose: 12.5 mg Documented by: Hydromorphone HCl (Dilaudid) 1 mg IVP Q6H PRN PRN Reason: Analgesia Last Admin: 08/03/19 12:33 Dose: 1 mg Documented by: Cefepime HCl 1 gm/ Sodium (Chloride) 50 mls @ 100 mls/hr IVPB DAILY [facility] Last Admin: 08/03/19 10:28 Dose: 100 mls/hr Documented by: Sodium Chloride (Saline 0.9%) 1,000 mls @ 75 mls/hr IV .[id number] [facility] Last Admin: 08/02/19 17:55 Dose: 75 mls/hr Documented by: Daptomycin 400 mg/ Sodium (Chloride) 50 mls @ 100 mls/hr IVPB Q48H [facility]; Protocol Metronidazole (Flagyl) 500 mg PO TID [facility] Last Admin: 08/03/19 15:11 Dose: 500 mg Documented by: Naloxone HCl (Narcan) 0.2 mg IV Q2M PRN PRN Reason: Opioid Reversal Ondansetron HCl (Zofran) 4 mg IVP Q8HR PRN PRN Reason: Nausea And Vomiting Last Admin: 08/01/19 18:13 Dose: 4 mg Documented by: Sertraline HCl (Zoloft) 25 mg PO DAILY [facility] Last Admin: 08/03/19 10:52 Dose: 25 mg Documented by: Tramadol/Acetaminophen (Ultracet) 1 each PO QID PRN PRN Reason: Pain Last Admin: 08/03/19 10:52 Dose: 1 each Documented by: Physical examination: VITAL SIGNS: 98.7, 79, 17, 96/52, 90% on room air GENERAL: Laying in bed. Tired EYES: Pupils equal. Conjunctiva normal. NECK: JVD not raised; masses not palpable. HEART: First and second heart sounds are normal; no edema. LUNGS: Respiratory rate normal; clear to auscultation. ABDOMEN: Soft, nontender, liver spleen not palpable, no masses palpable. PSYCH: Tired MUSCULOSKELETAL: Sacral decubitus ulcer. With dressing. NEUROLOGICAL: Cranial nerves grossly intact; no facial asymmetry, contraction of the left arm. Bilateral foot drops INVESTIGATIONS, reviewed in the clinical context: Potassium 3 bun 50 crit 1.26 Previous testing White count 11.4 hemoglobin 12.5 platelets 484 potassium 3.6 creatinine 0.6 AST 335 ALT 231 alk phos 267 X-ray sacrum coccyx-difficult to exclude osseous erosion Assessment: -Infected sacral decubitus ulcer possibly stage III-status post debridement July 31 -Severe cognitive impairment. 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 Plan: Continue on IV cefepime . Vancomycin discontinued. Daptomycin being started. Repeat labs in a.m. Replace potassium.
[2019-08-03] MEDS: SODIUM CHLORIDE 0.9% 1,000 ML IV SCH ×2 (18:51→21:30)
--- NOTE | 2019-08-04 02:43 | PN ---
PROGRESS NOTE DATE OF SERVICE: 08/03/2019. REASON FOR FOLLOWUP: Stage IV infected sacral pressure ulcer. INTERVAL HISTORY: The patient is currently afebrile. She has been breathing comfortably. No nausea, vomiting or any diarrhea has been reported. The patient was and did not provide any history. PHYSICAL EXAMINATION: On examination, her blood pressure is 96/52 with a pulse of 79, temperature 98.7. She is 90% on room air. General description is an elderly female lying in bed in no distress. RESPIRATORY SYSTEM: Unlabored breathing, clear to auscultation. HEART: S1, S2. Regular rate and rhythm. ABDOMEN: Soft. No tenderness. Sacral wound minimal slough tissue, surrounding redness, no drainage. LABS: Hemoglobin is 11.3, white count of 18.4, BUN of 50, creatinine 1.26. Wound culture has been presumptive MRSA and Afia albicans. DIAGNOSTIC IMPRESSION AND PLAN: Patient with stage IV infected sacral pressure ulcer. Culture presumptive MRSA in a patient is currently on daptomycin. She will get a PICC line tomorrow. Continue with IV daptomycin for a total of 6 weeks. We will add oral Diflucan and continue the Flagyl. Discontinue cefepime with no gram-negative grown. Continue supportive care. MMODL / IJN: [id number] /
[2019-08-04 05:26] VITALS: RESP 18
[2019-08-04 07:02] LABS: Calcium 8.5 mg/dL (8.4-10.2); Potassium 3.1 mmol/L (3.5-5.1)
[2019-08-04] MEDS: ENOXAPARIN 30 MG/0.3 ML SYRINGE SQ SCH (09:12)
[2019-08-04] MEDS: CEFEPIME 1 GM in SODIUM CHLORIDE 0.9% 50 ML IVPB SCH (09:28)
[2019-08-04] MEDS: SERTRALINE 25 MG TAB PO SCH (09:28)
[2019-08-04] MEDS: metroNIDAZOLE 500 MG TAB PO SCH ×3 (09:28→21:33)
--- NOTE | 2019-08-04 11:47 | P.PN ---
Subjective Progress Note Date: 08/04/19 CHIEF COMPLAINT: Infected decubitus sacral ulcer HISTORY OF PRESENT ILLNESS: Patient examined at the bedside. She is s/p I&D of sacral decubitus ulcer. Patient seems tolerable at this time. Vital signs are stable. Vital signs stable. PHYSICAL EXAM: VITAL SIGNS: Reviewed. GENERAL: Well-developed in no acute distress. HEENT: No sclera icterus. Extraocular movements grossly intact. Moist buccal mucosa. Head is atraumatic, normocephalic. ABDOMEN: Soft. Nondistended. Nontender. . NEUROLOGIC: Alert and oriented x 1 SKIN: Dressing to sacral region clean dry intact ASSESSMENT: 1. Unstageable sacral decubitus ulcer 2. Leukocytosis PLAN: -May resume Eliquis from a surgical standpoint -Diet as tolerated -Continue antibiotics per ID -Continue local wound care -Stable for discharge from a surgical standpoint. Will defer to medicine. Nurse practitioner note has been reviewed by physician. Signing provider agrees with the documented findings, assessment, and plan of care. Objective - Vital Signs Vital signs: Vital Signs Temp 99.1 F 08/04/19 03:18 Pulse 77 08/04/19 08:00 Resp 18 08/04/19 08:00 BP 102/56 08/04/19 03:18 Pulse Ox 92 L 08/04/19 03:18 Intake & Output 08/03/19 08/04/19 08/04/19 18:59 06:59 18:59 Intake Total 450 Output Total 1400 1750 1750 Balance -1400 -1300 -1750 Intake: Oral 450 Output: Urine 1400 1750 1750 Other: Voiding Method Indwelling Catheter Indwelling Catheter Indwelling Catheter # Voids 1 - Labs CBC & Chem 7: 08/02/19 06:01 08/04/19 05:48 Labs: Abnormal Lab Results - Last 24 Hours (Table) 08/04/19 Range/Units 05:48 Potassium 3.1 L (3.5-5.1) mmol/L Chloride 108 H (98-107) mmol/L BUN 34 H (7-17) mg/dL Microbiology - Last 24 Hours (Table) 08/01/19 14:00 Anaerobic Culture - Final Other - Other Anaerobic Gm Negative Bacilli Anaerobic Gm Negative Bacilli#2 Anaerobic Gram Positive Cocci Anaerobic Gm Negative Bacilli#3 08/01/19 14:00 Gram Stain - Final Other - Other Wound Culture - Final Methicillin resist S. aureus Afia albicans 07/29/19 16:21 Blood Culture - Preliminary Blood No Growth after 120 hours
[2019-08-04] MEDS ORDERED: FLUCONAZOLE 100 MG TAB PO SCH ×2 (12:30→12:36)
[2019-08-04] MEDS ORDERED: FLUCONAZOLE ORAL SUSP 1,400 MG/35 ML BOTTLE PO SCH (12:30)
[2019-08-04] MEDS ORDERED: LIDOCAINE 1% INJ 10MG/ML (20 ML MDV) SQ ONE (14:12)
[2019-08-04] MEDS ORDERED: POTASSIUM CHLORIDE ER 20 MEQ TAB.ER PO STA (14:36)
--- NOTE | 2019-08-04 14:49 | IR ---
EXAMINATION TYPE: IR cvc insert >=5 years DATE OF EXAM: 08/04/2019 COMPARISON: NONE CLINICAL HISTORY: Infection Needs long-term intravenous access for antibiotics. PROCEDURE: Hand hygiene obtained with soap and water and alcohol-based hand rub. After informed consent, the skin overlying the left basilic vein was localized with ultrasound and no jackelin to be compressible and patent. An ultrasound image was obtained and submitted on the patient's c sampson. The overlying skin was prepped and draped and Lidocaine was used for local anesthesia. A skin tiarra was made with a scalpel. Access was gained to the vein under ultrasound guidance with a 21 gau ge needle and a 0.018 inch wire was advanced. Access site was dilated with Peel-Away sheath and cath eter tailored to the appropriate length and advanced such that the distal tip is at the cavoatrial ju nction. Spot image was obtained verifying placement. Catheter was fixed to the skin and a sterile d ressing was placed following hemostasis. Catheter was aspirated and flushed with saline. Patient wa s discharged in stable condition without complication. Maximal barrier technique is utilized. Ultras ound image is documented on the chart. Ultrasound used with sterile technique. Fluoro time and fluoroscopic images submitted to document procedure: 231 intraoperative images, 1 min chad fluoroscopy time IMPRESSION: STATUS POST ULTRASOUND AND FLUOROSCOPIC GUIDED PICC LINE PLACEMENT, READY FOR USE. THIS PROCEDURE WAS PERFORMED BY THE UNDERSIGNED.
[2019-08-04] MEDS: SODIUM CHLORIDE 0.9% 1,000 ML IV SCH ×2 (14:51→21:36)
[2019-08-04] MEDS ORDERED: POTASSIUM CHLORIDE 20 MEQ in WATER FOR INJECTION 1 100ML.BAG IVPB ONE (15:00)
--- NOTE | 2019-08-04 15:51 | CONS ---
CONSULTATION REASON FOR CONSULT: Low GFR and need for PICC line. Patient is an 83-year-old female who was initially admitted to the hospital on 07/29/2019. Patient has a stage IV infected sacral decubitus, currently maintained on antibiotics. Culture is growing presumptive MRSA. Currently maintained on daptomycin. Patient did have acute kidney injury with serum creatinine peaking at 1.45, currently down to 0.74. Patient has had good urine output. PAST MEDICAL HISTORY: Significant for hypertension, anxiety, depression, dementia, medical debility. PAST SURGICAL HISTORY: , cholecystectomy, hysterectomy, tonsillectomy. SOCIAL HISTORY: Negative for smoking, drug abuse or alcohol abuse. MEDICATIONS: Medications at home prior to admission: Eliquis, hydrochlorothiazide, Zoloft, tramadol. ALLERGIES: ALLERGIES include ZITHROMAX and IV CONTRAST, PENICILLINS. PHYSICAL EXAMINATION: Patient is comfortable, awake, not in any acute distress, although she is not able to carry on a conversation. Blood pressure was 92/51, heart rate 79 per minute. She is afebrile. EXAMINATION OF THE HEART: S1 and S2. EXAMINATION OF LUNGS: Decreased breath sounds at bases. ABDOMEN: Soft, obese, non-tender. Examination of lower extremities shows no significant edema. WRAPPER CASER exam cannot be assessed. LABS: Sodium 139, potassium 3.1, chloride 108, BUN 34, creatinine 0.74. UA is not available. ASSESSMENT: 1. Acute kidney injury associated with underlying infection as well as possibly related to vancomycin, currently improved. Vancomycin has been discontinued. We can proceed with PICC line placement. No arm preference at this point. 2. Hypokalemia associated with decreased intake, currently being replaced. We will repeat supplementation again today. 3. Stage IV sacral decubitus ulcer with wound culture growing methicillin-resistant Staphylococcus aeruginosa, Afia and Gram-negative bacilli, being followed by Infectious Disease. PLAN: Replace potassium. Okay to proceed with PICC line. No arm preference at this time. MMODL / IJN: [id number] /
--- NOTE | 2019-08-04 17:18 | P.PN ---
Progress Note - Text Progress Note Date: 08/04/19 Chief Complaint: Infected ulcer History of presenting complaint: This is a 83-year-old patient of visiting physicians Dr. Valenzuela. Chronic stable medical conditions include primary osteoarthritis, essential hypertension, depression and anxiety,. Patient has an infected decubitus ulcer in the sacral area. She just finished a course of ciprofloxacin. The home health nurse felt that was getting worse more infected. Patient has some pain in that affected area. There been no reported fever or chills. And brought to the ER. Antibiotics were started. Gen. surgery and infectious disease was consulted. Patient lives with her daughter. Was also a caregiver. Patient has a hospital bed and often sits in wheelchair for short periods. They also will lift chair. Patient has a contracture of the left hand and is right-handed. Patient can only gives simple answers. Because of dementia. Admitted with-infected decubitus ulcer. Started on IV vancomycin, IV cefepime. July 31 underwent debridement of the decubitus ulcer. Acute kidney injury secondary to vancomycin toxicity. Discontinued. Started on daptomycin. PICC line placed Today-laying in bed. Bit tired. Pain better controlled. Eating with some assistance. Review of systems: Was done for constitutional, cardiovascular, GI, pulmonary. relevant finding as above Active Medications Acetaminophen (Tylenol Tab) 650 mg PO Q6HR PRN PRN Reason: Mild Pain or Fever > 100.5 Last Admin: 08/01/19 02:58 Dose: 650 mg Documented by: Enoxaparin Sodium (Lovenox) 30 mg SQ DAILY [facility] Last Admin: 08/04/19 09:12 Dose: Not Given Documented by: Fluconazole (Diflucan) 200 mg PO DAILY [facility] Hydromorphone HCl (Dilaudid) 1 mg IVP Q6H PRN PRN Reason: Analgesia Last Admin: 08/03/19 12:33 Dose: 1 mg Documented by: Sodium Chloride (Saline 0.9%) 1,000 mls @ 75 mls/hr IV .[id number] [facility] Last Admin: 08/04/19 14:51 Dose: Not Given Documented by: Daptomycin 400 mg/ Sodium (Chloride) 50 mls @ 100 mls/hr IVPB Q48H [facility]; Protocol Metronidazole (Flagyl) 500 mg PO TID [facility] Last Admin: 08/04/19 16:26 Dose: 500 mg Documented by: Naloxone HCl (Narcan) 0.2 mg IV Q2M PRN PRN Reason: Opioid Reversal Ondansetron HCl (Zofran) 4 mg IVP Q8HR PRN PRN Reason: Nausea And Vomiting Last Admin: 08/01/19 18:13 Dose: 4 mg Documented by: Sertraline HCl (Zoloft) 25 mg PO DAILY [facility] Last Admin: 08/04/19 09:28 Dose: 25 mg Documented by: Sodium Chloride (Saline Flush) 10 ml IV Q4HR PRN PRN Reason: PICC Line Sodium Chloride (Saline Flush) 10 ml IV WEEKLY [facility] Sodium Chloride (Saline Flush) 20 ml IV Q4HR PRN PRN Reason: PICC Line Tramadol/Acetaminophen (Ultracet) 1 each PO QID PRN PRN Reason: Pain Last Admin: 08/03/19 23:26 Dose: 1 each Documented by: Physical examination: VITAL SIGNS: 97.6, 83, 18, 138/70, 96% on room air GENERAL: Laying in bed. Tired EYES: Pupils equal. Conjunctiva normal. NECK: JVD not raised; masses not palpable. HEART: First and second heart sounds are normal; no edema. LUNGS: Respiratory rate normal; clear to auscultation. ABDOMEN: Soft, nontender, liver spleen not palpable, no masses palpable. PSYCH: Tired MUSCULOSKELETAL: Sacral decubitus ulcer. With dressing. NEUROLOGICAL: Cranial nerves grossly intact; no facial asymmetry, contraction of the left arm. Bilateral foot drops INVESTIGATIONS, reviewed in the clinical context: Potassium 3.1 creatinine 0.74 Previous testing White count 11.4 hemoglobin 12.5 platelets 484 potassium 3.6 creatinine 0.6 AST 335 ALT 231 alk phos 267 X-ray sacrum coccyx-difficult to exclude osseous erosion Assessment: -Infected sacral decubitus ulcer possibly stage III-status post debridement July 31 -Severe cognitive impairment. Late onset Alzheimer's dementia -Chronic medical debility -Chronic contracture of the left forearm -Depression not otherwise specified -Essential hypertension -Acute hepatitis could be drug-induced.-Improving -Reactive thrombocytosis -Acute kidney injury possibly ATN possibly vancomycin toxicity.-Improved Plan: Continue on IV cefepime, Daptomycin Replace potassium. Patient's family now wants to patient go to [facility]. Social workers looking into same. Therefore discharge held for today. Patient also getting a PICC line today.
[2019-08-04] MEDS: ACETAMINOPHEN TAB 325 MG TAB PO PRN (18:04)
--- NOTE | 2019-08-04 22:21 | PN ---
PROGRESS NOTE DATE OF SERVICE: 08/04/2019 REASON FOR FOLLOWUP: Sacral stage IV pressure ulcer with underlying infection. INTERVAL HISTORY: The patient is currently afebrile. She is breathing comfortably. No chest pain or cough. No abdominal pain or any diarrhea reported. PHYSICAL EXAMINATION: Blood pressure 123/69 with a pulse of 64, temperature 98. She is 95% on room air. General description is an elderly female lying in bed in no distress. RESPIRATORY SYSTEM: Unlabored breathing. Clear to auscultation anteriorly. HEART: S1, S2. Regular rate and rhythm. ABDOMEN: Soft. No tenderness. LABS: Creatinine normalized to 0.74. CBC was not done. Wound culture with anaerobes, MRSA and Afia. DIAGNOSTIC IMPRESSION AND PLAN: Patient with infected sacral pressure ulcer, stage IV, with multiple pathogens. The patient is currently covered with daptomycin, fluconazole and Flagyl. The patient did have renal insufficiency with vancomycin and high risk of nephrotoxicity in the outpatient setting. Continue with these 2 antibiotics and antifungal for a total of 6 weeks. Local wound care with Medihoney. Keep the area dry and off pressure. Continue with supportive care. MMODL / IJN: [id number] /
[2019-08-05] MEDS ORDERED: POTASSIUM CHLORIDE 20 MEQ in WATER FOR INJECTION 1 100ML.BAG IVPB STA (01:22)
[2019-08-05] MEDS: HYDROmorphone 1 MG/ML 1 ML SYRINGE IVP PRN (02:31)
[2019-08-05] MEDS: metroNIDAZOLE 500 MG TAB PO SCH ×2 (07:35→15:47)
[2019-08-05] MEDS: ENOXAPARIN 30 MG/0.3 ML SYRINGE SQ SCH (07:35)
[2019-08-05] MEDS: SERTRALINE 25 MG TAB PO SCH (07:36)
[2019-08-05] MEDS: traMADol-ACETAMINOP 37.5-325MG 1 EACH TAB PO PRN ×2 (08:18→18:01)
[2019-08-05] MEDS: SODIUM CHLORIDE 0.9% 1,000 ML IV SCH (08:19)
[2019-08-05] MEDS ORDERED: CEFEPIME 2 GM in SODIUM CHLORIDE 0.9% 100 ML IVPB SCH (09:00)
[2019-08-05 14:24] VITALS: BP 157/88; PULSE 95; TEMP 98.2
[2019-08-05] MEDS ORDERED: POTASSIUM CHLORIDE ER 20 MEQ TAB.ER PO STA (15:20)
--- NOTE | 2019-08-05 15:49 | P.DS ---
Providers Date of admission: 07/29/19 15:04 Expected date of discharge: 08/05/19 Attending physician: Fritz Blair Consults: 07/29/19 15:12 Consult Physician Stat Consulting Provider: Kirt Mclaughlin Consult Reason/Comments: Infected decubitus sacral ulcer Do you want consulting provider notified?: Yes Consult Physician Stat Consulting Provider: Martha Miramontes Consult Reason/Comments: Infected decubitus sacral ulcer Do you want consulting provider notified?: Yes 08/04/19 08:03 Consult Physician Urgent Consulting Provider: Rush Castillo Consult Reason/Comments: picc line scheduled today recommendations for arm placement d/t low gfr Do you want consulting provider notified?: Yes Primary care physician: Bean Valenzuela MD Hospital Course: Chief Complaint: Infected ulcer History of presenting complaint: This is a 83-year-old patient of visiting physicians Dr. Valenzuela. Chronic stable medical conditions include primary osteoarthritis, essential hypertension, depression and anxiety,. Patient has an infected decubitus ulcer in the sacral area. She just finished a course of ciprofloxacin. The home health nurse felt that was getting worse more infected. Patient has some pain in that affected area. There been no reported fever or chills. And brought to the ER. Antibiotics were started. Gen. surgery and infectious disease was consulted. Patient lives with her daughter. Was also a caregiver. Patient has a hospital bed and often sits in wheelchair for short periods. They also will lift chair. Patient has a contracture of the left hand and is right-handed. Patient can only gives simple answers. Because of dementia. Admitted with-infected decubitus ulcer. Started on IV vancomycin, IV cefepime. July 31 underwent debridement of the decubitus ulcer. Acute kidney injury secondary to vancomycin toxicity. Discontinued. Started on daptomycin. PICC line placed. Creatinine did come down to normal. Today-oral intake much improved. Comfortable. Pain control. Discussed with Dr. Brar from ID. And the nurse. Discussion and discharge planning more than 35 minutes Consultation: Dr. Miramontes from ID Dr. Mclaughlin from general surgery Physical examination: VITAL SIGNS: 98.2, 95, 18, 153/76, 96% on room air GENERAL: Laying in bed. Comfortable EYES: Pupils equal. Conjunctiva normal. NECK: JVD not raised; masses not palpable. HEART: First and second heart sounds are normal; no edema. LUNGS: Respiratory rate normal; clear to auscultation. ABDOMEN: Soft, nontender, liver spleen not palpable, no masses palpable. PSYCH: Tired MUSCULOSKELETAL: Sacral decubitus ulcer. With dressing. NEUROLOGICAL: Cranial nerves grossly intact; no facial asymmetry, contraction of the left arm. Bilateral foot drops INVESTIGATIONS, reviewed in the clinical context: Potassium 3.6 creatinine 0.74 Previous testing White count 11.4 hemoglobin 12.5 platelets 484 potassium 3.6 creatinine 0.6 AST 335 ALT 231 alk phos 267 X-ray sacrum coccyx-difficult to exclude osseous erosion Assessment: -Infected sacral decubitus ulcer possibly stage III-status post debridement July 31 -Severe cognitive impairment. Late onset Alzheimer's dementia -Chronic medical debility -Chronic contracture of the left forearm -Depression not otherwise specified -Essential hypertension -Acute hepatitis could be drug-induced.-Improving -Reactive thrombocytosis -Acute kidney injury possibly ATN possibly vancomycin toxicity.-Improved Disposition: [facility] Patient Condition at Discharge: Stable Plan - Discharge Summary Discharge Rx Participant: Yes New Discharge Prescriptions: No Action traMADol-ACETAMINOP 37.5-325MG [Ultracet] 1 tab PO QID PRN PRN Reason: Pain Apixaban [Eliquis] 5 mg PO BID Sertraline [Zoloft] 25 mg PO DAILY Hydrochlorothiazide 12.5 mg PO DAILY Discharge Medication List Apixaban [Eliquis] 5 mg PO BID 07/29/19 [History] Hydrochlorothiazide 12.5 mg PO DAILY 07/29/19 [History] Sertraline [Zoloft] 25 mg PO DAILY 07/29/19 [History] traMADol-ACETAMINOP 37.5-325MG [Ultracet] 1 tab PO QID PRN 07/29/19 [History] Follow up Appointment(s)/Referral(s): Bean Valenzuela MD [Primary Care Provider] - 1-2 days Kirt Mclaughlin MD [STAFF PHYSICIAN] - 1 Week Activity/Diet/Wound Care/Special Instructions: -[facility] -[phone] soliz cath discontinued at 1630 continue to monitor for first void bladder scan prn
--- NOTE | 2019-08-05 15:50 | PN ---
PROGRESS NOTE Patient was seen for followup for acute kidney injury and hypokalemia. She has received a PICC line in her left arm. She is currently comfortable, awake this morning, not in any acute distress. Blood pressure was 153/76, heart rate 75 per minute. She is afebrile. Exam reveals patient has no significant edema in lower extremities. She is moving her legs. Abdomen is soft, obese, nontender. Labs show potassium of 3.1 from yesterday. This morning it was 3.6, serum creatinine 0.74 from yesterday. ASSESSMENT: 1. Acute kidney injury associated with hypotension, hypoperfusion, now resolved. 2. Hypokalemia associated with decreased oral intake, maintained on supplementation. 3. Stage IV sacral decubitus with wound cultures growing methicillin-resistant Staphylococcus aeruginosa, Afia, Gram-negative bacilli, maintained on antibiotics, being followed by Infectious Disease. PLAN: Replace potassium. Repeat labs in a.m. Encourage increased oral intake. If patient is eating, discontinue the IV fluids. I will decrease it to 50 mL/hour today. MMODL / IJN: [id number] /
--- NOTE | 2019-08-05 17:02 | PN ---
PROGRESS NOTE DATE OF SERVICE: 08/05/2019 REASON FOR FOLLOW UP: Sacral stage IV pressure ulcer with secondary infection. INTERVAL HISTORY: The patient is currently afebrile. The patient has been breathing comfortably. Denies having any chest pain or any cough. No vomiting or any diarrhea has been reported. PHYSICAL EXAMINATION: Blood pressure is 157/88 with a pulse of 95, temperature is 98.2, she is 96% on room air. General description is an is an elderly female, lying in bed in no distress. RESPIRATORY SYSTEM: Unlabored breathing, clear to auscultation anteriorly. HEART: S1, S2. Regular rate and rhythm. ABDOMEN: Soft, no tenderness. LABS: 3.6. No other labs have been done. 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 Culture has been MRSA Afia anaerobes. Patient is covered with daptomycin because of her problem with vancomycin along with Diflucan and Flagyl. She did continue with the medication for a total of 6 weeks. Local wound care with Medihoney followed by moist dressing. Can be transitioned to the wound VAC at the correction. Continue supportive care. MMODL / IJN: [id number] /
== END 2019-08-05 18:08 | DRG 579 ==
LOC: EC 13:51 → 4SSUR 15:04
PROVIDERS: ADMIT Hospitalist; ATTEND Hospitalist
PROC: 02HV33Z Insertion of Infusion Device into Superior Vena Cava, Percutaneous Approach (ICD-10-PCS; 2019-07-29)
PROC: 0KBP0ZZ Excision of Left Hip Muscle, Open Approach (ICD-10-PCS; principal; 2019-08-01 12:00)
PROC: 0KBN0ZZ Excision of Right Hip Muscle, Open Approach (ICD-10-PCS; principal; 2019-08-01 12:00)
DX: L89.153 Pressure ulcer of sacral region, stage 3 (principal); N17.0 Acute kidney failure with tubular necrosis; B37.89 Other sites of candidiasis; K71.2 Toxic liver disease with acute hepatitis; F02.80 Dementia in other diseases classified elsewhere, unspecified severity, without behavioral disturbance, psychotic disturbance, mood disturbance, and anxiety; G30.1 Alzheimer's disease with late onset; I95.9 Hypotension, unspecified; L08.9 Local infection of the skin and subcutaneous tissue, unspecified; B95.62 Methicillin resistant Staphylococcus aureus infection as the cause of diseases classified elsewhere; T50.905A Adverse effect of unspecified drugs, medicaments and biological substances, initial encounter; D72.829 Elevated white blood cell count, unspecified; E66.9 Obesity, unspecified; E87.6 Hypokalemia; F32.9 Major depressive disorder, single episode, unspecified; F41.9 Anxiety disorder, unspecified; I10 Essential (primary) hypertension; I25.10 Atherosclerotic heart disease of native coronary artery without angina pectoris; J44.9 Chronic obstructive pulmonary disease, unspecified; M19.91 Primary osteoarthritis, unspecified site; T36.8X5A Adverse effect of other systemic antibiotics, initial encounter; R79.89 Other specified abnormal findings of blood chemistry; N14.1 Nephropathy induced by other drugs, medicaments and biological substances; R32 Unspecified urinary incontinence; R53.81 Other malaise; Z79.01 Long term (current) use of anticoagulants; Z79.899 Other long term (current) drug therapy; Z88.0 Allergy status to penicillin; Z88.1 Allergy status to other antibiotic agents; Z91.041 Radiographic dye allergy status; Z90.710 Acquired absence of both cervix and uterus; Z90.49 Acquired absence of other specified parts of digestive tract; Z68.27 Body mass index [BMI] 27.0-27.9, adult
CPT/HCPCS: 36415; 36573; 72220; 80048; 80053; 80202; 83605; 84132; 85025; 85027; 85610; 85652; 86140; 87040; 87070; 87075; 87077; 87186; 87205; 96365; 96375; 99285

== ENCOUNTER 2019-09-05 16:38 | Inpatient (IN) | payer MEDICARE, OTHER ==
--- NOTE | 2019-09-05 17:02 | ED ---
General Adult HPI - General Chief complaint: Recheck/Abnormal Lab/Rx Stated complaint: lab recheck Time Seen by Provider: 09/05/19 16:40 Source: EMS Mode of arrival: EMS Limitations: no limitations - History of Present Illness Initial comments: Dictation was produced using QR Artist dictation software. please excuse any grammatical, word or spelling errors. This patient was cared for during a federal and state declared state of emergency secondary to Covid 19 Chief Complaint: 83-year-old female past medical history of Alzheimer's bernard ntia, hypertension, decubitus ulcer presents with dark urine. History of Present Illness: 83-year-old female with multiple comorbidities. Patient is a poor historian due to history of Alzheimer's. According to nurse received report from EMS patient was brought to the emergency department for abnormally dark urine. Allegedly she was just released from [facility]. Patient has a history of PICC line insertion to the left upper extremity for which she receives daptomycin. Chart review shows that patient has history of infected sacral decubitus ulcer. It is unclear if she is receiving daptomycin for this. Chart review shows that patient is on daptomycin 4 stage IV sacral decubitus ulcer. Patient is also receiving Diflucan and Flagyl for this infection. Patient has indwelling Hemphill catheter. Patient is a poor historian but she does report that she has pain to her decubitus ulcer. The ROS documented in this emergency department record has been reviewed and confirmed by me. Those systems with pertinent positive or negative responses have been documented in the HPI. All other systems are other negative and/or noncontributory. PHYSICAL EXAM: General Impression: Alert and oriented x2/4, not in acute distress, shivering HEENT: Normocephalic atraumatic, extra-ocular movements intact, pupils equal and reactive to light bilaterally, mucous membranes moist. Cardiovascular: Heart regular rate and rhythm Chest: Able to complete full sentences, no retractions, no tachypnea Abdomen: abdomen soft, non-tender, non-distended, no organomegaly Musculoskeletal: Pulses present and equal in all extremities, no peripheral edema, PICC line to the left upper extremity, PICC line site is clean dry and intact without any erythema or induration Motor: no focal deficits noted Neurological: CN II-XII grossly intact, no focal motor or sensory deficits noted Skin: Stage IV decubitus ulcer to the sacrum without any significant erythema to the surrounding skin, no perineal rash, skin to the extremities are unremarkable. Hemphill catheter reservoir: Collection of tea-colored urine ED course: 83-year-old female presents today with EMS for chief complaint of dark colored urine. Vital signs upon arrival shows temp 99.1, heart rate of 118, rest of vital signs within acceptable limits. She appears ill and is shivering. There is concern for infectious process. Laboratory evaluation obtained. Leukocytosis of 13.0. Coag panel unremarkable. Metabolic panel shows anion gap acidosis, potassium 5.2. Lactic acidosis 5.0. Urinalysis suggests urinary tract infection. Chest x-ray is nonacute. Considering patient's clinical presentation there is concern of acute infectious process. It's not entirely clear what is causing patient's symptoms. Patient covered with broad-spectrum antibiotics. Discussed patient case with sound physician Dr. Bai who is willing to accept patient's care EKG interpretation: Ventricular rate 106, sinus tachycardia,. Interval 134, QRS 76, QTC 475. No IN prolongation, no QTC prolongation, no ST or T-wave changes noted. EKG compared to 10/10/2017 showing no changes. Overall, this EKG is unremarkable - Related Data Home Medications Medication Instructions Recorded Confirmed Apixaban [Eliquis] 5 mg PO BID 07/29/19 09/05/19 Sertraline [Zoloft] 25 mg PO DAILY 07/29/19 09/05/19 Acetaminophen Tab [Tylenol] 650 mg PO Q6H PRN 09/05/19 09/05/19 DAPTOmycin [Cubicin Rf] 400 mg IVPB Q48H 09/05/19 09/05/19 Previous Rx's Medication Instructions Recorded Fluconazole [Diflucan] 200 mg PO DAILY #42 tab 08/05/19 metroNIDAZOLE [Flagyl] 500 mg PO TID #156 tab 08/05/19 traMADol-ACETAMINOP 37.5-325MG 1 tab PO QID PRN #12 tab 08/05/19 [Ultracet] Allergies Allergy/AdvReac Type Severity Reaction Status Date / Time azithromycin [From Zithromax] Allergy Mild Nausea & Verified 09/05/19 17:35 Vomiting & Diarrhea Iodinated Contrast Media Allergy Mild Unknown Verified 09/05/19 17:35 [Iodinated Contrast Media - IV Dye] Penicillins Allergy Itching Verified 09/05/19 17:35 Review of Systems ROS Statement: Those systems with pertinent positive or pertinent negative responses have been documented in the HPI. ROS Other: All systems not noted in ROS Statement are negative. Past Medical History Past Medical History: Hypertension Additional Past Medical History / Comment(s): depression anxiety History of Any Multi-Drug Resistant Organisms: MRSA Date of last positivie culture/infection: 08/01/19 MDRO Source:: SACRAL ULCER MRSA Past Surgical History: Section, Cholecystectomy, Hysterectomy, Tonsillectomy Additional Past Surgical History / Comment(s): eye Past Psychological History: Anxiety, Depression Smoking Status: Never smoker Past Alcohol Use History: None Reported Past Drug Use History: None Reported - Past Family History Father History Unknown: Yes General Exam Limitations: no limitations Course Vital Signs 09/05/19 09/05/19 09/05/19 16:38 16:44 17:34 Temperature 99.1 F Pulse Rate 86 118 H 102 H Respiratory 16 16 16 Rate Blood Pressure 148/68 186/98 141/80 O2 Sat by Pulse 99 98 99 Oximetry 09/05/19 18:41 Temperature Pulse Rate 96 Respiratory 16 Rate Blood Pressure 157/95 O2 Sat by Pulse 99 Oximetry Medical Decision Making - Lab Data Result diagrams: 09/05/19 17:06 09/05/19 17:06 Lab Results 09/05/19 09/05/19 09/05/19 Range/Units 17:06 17:06 17:06 WBC 13.0 H (3.8-10.6) k/uL RBC 4.90 (3.80-5.40) m/uL Hgb 13.7 (11.4-16.0) gm/dL Hct 44.6 (34.0-46.0) % MCV 91.2 (80.0-100.0) fL MCH 27.9 (25.0-35.0) pg MCHC 30.6 L (31.0-37.0) g/dL RDW 14.5 (11.5-15.5) % Plt Count 697 H (150-450) k/uL Neutrophils % 69 % Lymphocytes % 27 % Monocytes % 1 % Eosinophils % 1 % Basophils % 0 % Neutrophils # 9.0 H (1.3-7.7) k/uL Lymphocytes # 3.5 (1.0-4.8) k/uL Monocytes # 0.1 (0-1.0) k/uL Eosinophils # 0.2 (0-0.7) k/uL Basophils # 0.1 (0-0.2) k/uL Hypochromasia Moderate PT 10.9 (9.0-12.0) sec INR 1.1 (<1.2) APTT 21.9 L (22.0-30.0) sec Sodium 137 (137-145) mmol/L Potassium 5.2 H (3.5-5.1) mmol/L Chloride 102 (98-107) mmol/L Carbon Dioxide 18 L (22-30) mmol/L Anion Gap 17 mmol/L BUN 15 (7-17) mg/dL Creatinine 0.41 L (0.52-1.04) mg/dL Est GFR (CKD-EPI)AfAm >90 (>60 ml/min/1.73 sqM) Est GFR (CKD-EPI)NonAf >90 (>60 ml/min/1.73 sqM) Glucose 126 H (74-99) mg/dL Plasma Lactic Acid Uday (0.7-2.0) mmol/L Calcium 9.6 (8.4-10.2) mg/dL Total Bilirubin 0.4 (0.2-1.3) mg/dL AST 47 H (14-36) U/L ALT 23 (4-34) U/L Alkaline Phosphatase 109 (38-126) U/L Creatine Kinase 87 (30-135) U/L Troponin I (0.000-0.034) ng/mL Total Protein 7.4 (6.3-8.2) g/dL Albumin 3.6 (3.5-5.0) g/dL Urine Color Urine Appearance (Clear) Urine pH (5.0-8.0) Ur Specific [place] (1.001-1.035) Urine Protein (Negative) Urine Glucose (UA) (Negative) Urine Ketones (Negative) Urine Blood (Negative) Urine Nitrite (Negative) Urine Bilirubin (Negative) Urine Urobilinogen (<2.0) mg/dL Ur Leukocyte Esterase (Negative) Urine RBC (0-5) /hpf Urine WBC (0-5) /hpf Ur Squamous Epith Cells (0-4) /hpf Calcium Oxalate Crystal (None) /hpf Urine Bacteria (None) /hpf Urine Mucus (None) /hpf 09/05/19 09/05/19 09/05/19 Range/Units 17:06 17:06 17:06 WBC (3.8-10.6) k/uL RBC (3.80-5.40) m/uL Hgb (11.4-16.0) gm/dL Hct (34.0-46.0) % MCV (80.0-100.0) fL MCH (25.0-35.0) pg MCHC (31.0-37.0) g/dL RDW (11.5-15.5) % Plt Count (150-450) k/uL Neutrophils % % Lymphocytes % % Monocytes % % Eosinophils % % Basophils % % Neutrophils # (1.3-7.7) k/uL Lymphocytes # (1.0-4.8) k/uL Monocytes # (0-1.0) k/uL Eosinophils # (0-0.7) k/uL Basophils # (0-0.2) k/uL Hypochromasia PT (9.0-12.0) sec INR (<1.2) APTT (22.0-30.0) sec Sodium (137-145) mmol/L Potassium (3.5-5.1) mmol/L Chloride (98-107) mmol/L Carbon Dioxide (22-30) mmol/L Anion Gap mmol/L BUN (7-17) mg/dL Creatinine (0.52-1.04) mg/dL Est GFR (CKD-EPI)AfAm (>60 ml/min/1.73 sqM) Est GFR (CKD-EPI)NonAf (>60 ml/min/1.73 sqM) Glucose (74-99) mg/dL Plasma Lactic Acid Uday 5.0 H* (0.7-2.0) mmol/L Calcium (8.4-10.2) mg/dL Total Bilirubin (0.2-1.3) mg/dL AST (14-36) U/L ALT (4-34) U/L Alkaline Phosphatase (38-126) U/L Creatine Kinase (30-135) U/L Troponin I <0.012 (0.000-0.034) ng/mL Total Protein (6.3-8.2) g/dL Albumin (3.5-5.0) g/dL Urine Color Yellow Urine Appearance Turbid H (Clear) Urine pH 6.5 (5.0-8.0) Ur Specific [place] 1.024 (1.001-1.035) Urine Protein 1+ H (Negative) Urine Glucose (UA) Negative (Negative) Urine Ketones Negative (Negative) Urine Blood Large H (Negative) Urine Nitrite Positive H (Negative) Urine Bilirubin Negative (Negative) Urine Urobilinogen <2.0 (<2.0) mg/dL Ur Leukocyte Esterase Large H (Negative) Urine RBC >182 H (0-5) /hpf Urine WBC >182 H (0-5) /hpf Ur Squamous Epith Cells 8 H (0-4) /hpf Calcium Oxalate Crystal Few H (None) /hpf Urine Bacteria Many H (None) /hpf Urine Mucus Many H (None) /hpf Critical Care Time Critical Care Time: Yes Total Critical Care Time: 33 Disposition Clinical Impression: Sepsis Disposition: ADMITTED IP TO THIS HOSP Condition: Fair Referrals: Bean Valenzuela MD [Primary Care Provider] - 1-2 days Decision Time: 18:49
[2019-09-05] MEDS: SODIUM CHLORIDE 0.9% 500 ML 500 ML IV SCH ×3 (17:09→18:33)
[2019-09-05 17:34] LABS: Basophils # (A) 0.1 k/uL (0-0.2); Basophils % (A) 0 %; Eosinophils # (A) 0.2 k/uL (0-0.7); Eosinophils % (A) 1 %; HCT 44.6 % (34.0-46.0); HGB 13.7 gm/dL (11.4-16.0); Hypochromasia Moderate; Lymphocytes # (A) 3.5 k/uL (1.0-4.8); Lymphocytes % (A) 27 %; MCH 27.9 pg (25.0-35.0); MCHC 30.6 g/dL (31.0-37.0); MCV 91.2 fL (80.0-100.0); Mean Platelet Volume 7.6; Monocytes # (A) 0.1 k/uL (0-1.0); Monocytes % (A) 1 %; Neutrophils % (A) 69 %; Platelet Count 697 k/uL (150-450); RDW 14.5 % (11.5-15.5)
[2019-09-05 17:40] LABS: Appearance,Urine Turbid (Clear); Bacteria,Urine Many /hpf; Bilirubin,Urine Negative (Negative); Blood,Urine Large (Negative); Calcium Oxalate Crystals,Urine Few /hpf; Color,Urine Yellow; Glucose,Urine (UA) Negative (Negative); Ketones,Urine Negative (Negative); Leukocyte Esterase,Urine Large (Negative); Mucus,Urine Many /hpf; Nitrite,Urine Positive (Negative); PH, Urine 6.5 (5.0-8.0); Protein,Urine 1+ (Negative); RBC,Urine >182 /hpf (0-5); Specific Gravity,Urine 1.024 (1.001-1.035); Squamous Epithelial Cell,Urine 8 /hpf (0-4); Urobilinogen,Urine <2.0 mg/dL (<2.0); WBC,Urine >182 /hpf (0-5)
[2019-09-05 17:45] LABS: INR 1.1 (<1.2); Partial Thromboplastin Time 21.9 sec (22.0-30.0); Prothrombin Time 10.9 sec (9.0-12.0)
[2019-09-05] MEDS ORDERED: MORPHINE SULFATE 4 MG/ML SYRINGE IV STA (17:45)
[2019-09-05] MEDS ORDERED: cefTRIAXone IN SWFI 1,000 MG/10 ML SYRINGE IVP STA (17:46)
[2019-09-05 17:49] LABS: ALT 23 U/L (4-34); AST 47 U/L (14-36); African American GFR (CKD) >90 (>60 ml/min/1.73 sqM); Albumin 3.6 g/dL (3.5-5.0); Alkaline Phosphatase 109 U/L (38-126); Anion Gap 17 mmol/L; Blood Urea Nitrogen 15 mg/dL (7-17); Calcium 9.6 mg/dL (8.4-10.2); Carbon Dioxide 18 mmol/L (22-30); Chloride 102 mmol/L (98-107); Creatine Kinase 87 U/L (30-135); Glucose 126 mg/dL (74-99); Non-African American GFR(CKD) >90 (>60 ml/min/1.73 sqM); Potassium 5.2 mmol/L (3.5-5.1); Sodium 137 mmol/L (137-145); Total Bilirubin 0.4 mg/dL (0.2-1.3); Total Protein 7.4 g/dL (6.3-8.2)
[2019-09-05] MEDS ORDERED: ACETAMINOPHEN TAB 500 MG TAB PO STA (17:49)
--- NOTE | 2019-09-05 17:56 | XR ---
EXAMINATION TYPE: XR chest 1V portable DATE OF EXAM: 09/05/2019 COMPARISON: 10/10/2017 HISTORY: Fever TECHNIQUE: Single frontal view of the chest is obtained. FINDINGS: Patient's chin partially obscures the lung apices. Remainder of the lungs demonstrate no f ocal consolidation, pleural effusion or pneumothorax. Cardiomediastinal silhouette is upper limits of normal size and similar to the prior. Left-sided PICC terminates in the superior vena cava distally. Faint possible surgical clips overlying the right breast tissue. IMPRESSION: Left PICC terminating over the distal superior vena cava. No acute cardiopulmonary proce ss although there is obscuration of the left lung apex by the patient's chin.
[2019-09-05] MEDS ORDERED: VANCOMYCIN IV PER PHARMACY 1 EACH MISC MISCELLANE PRN (17:59)
[2019-09-05] MEDS ORDERED: VANCOMYCIN 1,000 MG in SODIUM CHLORIDE 0.9% 250 ML IVPB STA (18:07)
[2019-09-05] MEDS ORDERED: NALOXONE 0.4 MG/ML 1 ML VIAL IV PRN (18:43)
[2019-09-05] MEDS ORDERED: ONDANSETRON 4 MG/2 ML VIAL IVP PRN (18:43)
[2019-09-05] MEDS ORDERED: DAPTOMYCIN 400 MG IVPB SCH (19:00)
[2019-09-05] MEDS: SODIUM CHLORIDE 0.9% 1,000 ML IV SCH (19:00)
[2019-09-05] MEDS: APIXABAN 5 MG TAB PO SCH (21:47)
[2019-09-05] MEDS ORDERED: metroNIDAZOLE 500 MG TAB PO SCH (22:00)
[2019-09-05] MEDS: ACETAMINOPHEN TAB 325 MG TAB PO PRN (22:51)
--- NOTE | 2019-09-06 01:43 | P.HPIM ---
History of Present Illness H&P Date: 09/05/19 Patient is an 83-year-old female with a PMH of dementia (bedbound with stage IV sacral ulcer), hypertension, indwelling soliz catheter, and osteoarthritis who was sent in for multiple complaints. Patient is a very poor historian and hx obtained from daughter (Jocelin Laguna [phone]) who notes that the patient was recently discharged from [facility] on Friday 09/01. The patient was recently admitted to the hospital on 07/29 and was discharged to [facility] on 08/04 with a PICC line to finish a 6 week course for MRSA bacteremia from suspected sacral decubitus ulcer. She reports that the patient's visiting nurse told her that the patient's sacral ulcer had increased tunneling along with darker urine and that she needed to be seen in the wound-care clinic, to which she wasn't able to get an appointment and thereby decided to contact EMS to bring her to the hospital. She notes that the patient was also somewhat more confused over the past few days. The patient however had not reported any active complaints to her family members and at time of interview, complained only of some right hip pain. The patient underwent an extensive evaluation in the emergency room with WBC count 13.0, hemoglobin 13.7, lactic acid 5.0, potassium 5.2, troponin less than 0.012, and abnormal UA. Chest x-ray was unremarkable and EKG showed sinus tachycardia at 106 bpm with inferior Q waves. Review of Systems ROS unobtainable: due to mental status Past Medical History Past Medical History: Hypertension Additional Past Medical History / Comment(s): depression anxiety History of Any Multi-Drug Resistant Organisms: MRSA Date of last positivie culture/infection: 08/01/19 MDRO Source:: SACRAL ULCER MRSA Past Surgical History: Section, Cholecystectomy, Hysterectomy, Tonsillectomy Additional Past Surgical History / Comment(s): eye Past Psychological History: Anxiety, Depression Smoking Status: Never smoker Past Alcohol Use History: None Reported Past Drug Use History: None Reported - Past Family History Father History Unknown: Yes Medications and Allergies Home Medications Medication Instructions Recorded Confirmed Type Apixaban [Eliquis] 5 mg PO BID 07/29/19 09/05/19 History Sertraline [Zoloft] 25 mg PO DAILY 07/29/19 09/05/19 History Fluconazole [Diflucan] 200 mg PO DAILY #42 tab 08/05/19 09/05/19 Rx metroNIDAZOLE [Flagyl] 500 mg PO TID #156 tab 08/05/19 09/05/19 Rx traMADol-ACETAMINOP 37.5-325MG 1 tab PO QID PRN #12 tab 08/05/19 09/05/19 Rx [Ultracet] Acetaminophen Tab [Tylenol] 650 mg PO Q6H PRN 09/05/19 09/05/19 History DAPTOmycin [Cubicin Rf] 400 mg IVPB Q48H 09/05/19 09/05/19 History Allergies Allergy/AdvReac Type Severity Reaction Status Date / Time azithromycin [From Zithromax] Allergy Mild Nausea & Verified 09/05/19 17:35 Vomiting & Diarrhea Iodinated Contrast Media Allergy Mild Unknown Verified 09/05/19 17:35 [Iodinated Contrast Media - IV Dye] Penicillins Allergy Itching Verified 09/05/19 17:35 Physical Exam Vitals: Vital Signs Temp Pulse Resp BP Pulse Ox 09/05/19 18:41 96 16 157/95 99 09/05/19 17:34 102 H 16 141/80 99 09/05/19 16:44 99.1 F 118 H 16 186/98 98 09/05/19 16:38 86 16 148/68 99 Intake and Output 09/05/19 09/05/19 09/05/19 06:59 14:59 22:59 Other: Voiding Method Indwelling Catheter Weight 54.431 kg General: Contracted elderly female, non toxic, no distress, appears at stated age, normal weight Derm: Large sacral decubitus ulcer, likely stage IV with minimal oozing and foul smell Head: atraumatic, normocephalic, symmetric Eyes: EOMI, no lid lag, anicteric sclera, pupils equal round reactive to light ENT: Nose and ears atraumatic, no thrush, no pharyngeal erythema Neck: No thyromegaly, no cervical lymphadenopathy, trachea midline, supple Mouth: no lip lesion, mucus membranes moist Cardiovascular: S1S2 reg, no murmur, positive posterior tibial pulse bilateral, no edema, capillary refill less than 2 seconds Lungs: CTA bilateral, no rhonchi, no rales , no accessory muscle use Abdominal: soft, nontender to palpation, no guarding, no appreciable organomegaly, normal bowel sounds Ext: Contracted bilateral upper extremities with contracted left foot Neuro: CN II-XI grossly intact, no focal neuro deficits Psych: Awake, oriented only to person, knows she is in the hospital though u edilberto to name it and is not oriented to time Results CBC & Chem 7: 09/05/19 17:06 09/05/19 17:06 Labs: Abnormal Lab Results - Last 24 Hours (Table) 09/05/19 09/05/19 09/05/19 Range/Units 17:06 17:06 17:06 WBC 13.0 H (3.8-10.6) k/uL MCHC 30.6 L (31.0-37.0) g/dL Plt Count 697 H (150-450) k/uL Neutrophils # 9.0 H (1.3-7.7) k/uL APTT 21.9 L (22.0-30.0) sec Potassium 5.2 H (3.5-5.1) mmol/L Carbon Dioxide 18 L (22-30) mmol/L Creatinine 0.41 L (0.52-1.04) mg/dL Glucose 126 H (74-99) mg/dL Plasma Lactic Acid Uday (0.7-2.0) mmol/L AST 47 H (14-36) U/L Urine Appearance (Clear) Urine Protein (Negative) Urine Blood (Negative) Urine Nitrite (Negative) Ur Leukocyte Esterase (Negative) Urine RBC (0-5) /hpf Urine WBC (0-5) /hpf Ur Squamous Epith Cells (0-4) /hpf Calcium Oxalate Crystal (None) /hpf Urine Bacteria (None) /hpf Urine Mucus (None) /hpf 09/05/19 09/05/19 Range/Units 17:06 17:06 WBC (3.8-10.6) k/uL MCHC (31.0-37.0) g/dL Plt Count (150-450) k/uL Neutrophils # (1.3-7.7) k/uL APTT (22.0-30.0) sec Potassium (3.5-5.1) mmol/L Carbon Dioxide (22-30) mmol/L Creatinine (0.52-1.04) mg/dL Glucose (74-99) mg/dL Plasma Lactic Acid Uday 5.0 H* (0.7-2.0) mmol/L AST (14-36) U/L Urine Appearance Turbid H (Clear) Urine Protein 1+ H (Negative) Urine Blood Large H (Negative) Urine Nitrite Positive H (Negative) Ur Leukocyte Esterase Large H (Negative) Urine RBC >182 H (0-5) /hpf Urine WBC >182 H (0-5) /hpf Ur Squamous Epith Cells 8 H (0-4) /hpf Calcium Oxalate Crystal Few H (None) /hpf Urine Bacteria Many H (None) /hpf Urine Mucus Many H (None) /hpf Assessment and Plan Plan: Stage IV sacral ulcer -Continue with daptomycin to complete course -ID consulted -Wound care -Patient had surgical debridement during previous hospitalization last month -Continue with Soliz catheter due to incontinence and ulcer Abnormal UA in the setting of indwelling Soliz catheter -Continue with ceftriaxone (patient received single dose in the ED uneventfully) -Follow up urine cultures Lactic acidosis, improved -Monitor to resolution Thrombocytosis -Slightly above baseline -Monitor CBC for now Hyperkalemia -Monitor BMP for now DVT prophylaxis -Eliquis The patient is admitted with an anticipated greater than 2 midnight stay for evaluation of sacral ulcers CODE STATUS: Full Code Discussed with: Patient Anticipated discharge date: 3-[address]: Home A total of 40 minutes was spent on the care of this complex patient more than 50% of the time was spent in counseling and care coordination.
[2019-09-06] MEDS: traMADol-ACETAMINOP 37.5-325MG 1 EACH TAB PO PRN ×2 (02:02→20:45)
[2019-09-06] MEDS: SODIUM CHLORIDE 0.9% 1,000 ML IV SCH ×2 (03:29→09:23)
[2019-09-06] MEDS ORDERED: VANCOMYCIN 1,000 MG in SODIUM CHLORIDE 0.9% 250 ML IVPB SCH (06:00)
[2019-09-06 07:24] LABS: HCT 33.9 % (34.0-46.0); Hypochromasia Moderate; MCHC 30.9 g/dL (31.0-37.0); MCV 90.4 fL (80.0-100.0); Mean Platelet Volume 7.4; Platelet Count 476 k/uL (150-450); RBC 3.75 m/uL (3.80-5.40); RDW 14.7 % (11.5-15.5); WBC 14.3 k/uL (3.8-10.6)
[2019-09-06 07:40] LABS: African American GFR (CKD) >90 (>60 ml/min/1.73 sqM); Anion Gap 7 mmol/L; Blood Urea Nitrogen 8 mg/dL (7-17); Calcium 8.1 mg/dL (8.4-10.2); Carbon Dioxide 23 mmol/L (22-30); Chloride 108 mmol/L (98-107); Glucose 90 mg/dL (74-99); Non-African American GFR(CKD) >90 (>60 ml/min/1.73 sqM); Potassium 3.9 mmol/L (3.5-5.1); Sodium 138 mmol/L (137-145)
[2019-09-06 07:47] LABS: HGB 10.5 gm/dL (11.4-16.0)
[2019-09-06] MEDS: APIXABAN 5 MG TAB PO SCH ×2 (11:06→20:45)
[2019-09-06] MEDS: FLUCONAZOLE 100 MG TAB PO SCH (11:06)
--- NOTE | 2019-09-06 14:28 | P.PN ---
Subjective Progress Note Date: 09/06/19 Principal diagnosis: urinary tract infection Patient was seen and examined. No acute events overnight. Patient appears pleasantly confused this morning. Patient is asking the questions where am I? and how did I get here?. Patient reports feeling fatigued and tired. She has some dark urine in her Hemphill catheter bag. Patient denies any chest pain, shortness of breath or palpitations. No nausea or vomiting. No fever or chills. Objective - Vital Signs Vital signs: Vital Signs Temp 98.4 F 09/06/19 11:05 Pulse 70 09/06/19 11:05 Resp 18 09/06/19 11:12 BP 109/57 09/06/19 11:05 Pulse Ox 99 09/06/19 11:05 Intake & Output 09/05/19 09/06/19 09/06/19 18:59 06:59 18:59 Intake Total 900 Output Total 375 400 Balance 525 -400 Weight 54.431 kg 57 kg 57 kg Intake: Oral 900 Output: Urine 375 400 Other: Voiding Method Indwelling Catheter Indwelling Catheter Indwelling Catheter - Exam General: [non toxic], [no distress], [appears at stated age] Derm: [warm], [dry], [large decubitus ulcer, stage IV with serosanguineous discharge] Head: [atraumatic], [normocephalic], [symmetric] Eyes: [EOMI], [no lid lag], [anicteric sclera] Mouth: [no lip lesion], [mucus membranes moist] Cardiovascular: [S1S2 reg], [no murmur], [positive DP pulse bilateral], Lungs: [CTA bilateral], [no rhonchi, no rales] , [no accessory muscle use] Abdominal: [soft], [ nontender to palpation], [no guarding], [no appreciable organomegaly] Ext: [no gross muscle atrophy], [no edema], [contractures of the bilateral upper extremities and left foot] Neuro: [no focal neuro deficits] Psych: [Pleasantly confused] - Labs CBC & Chem 7: 09/06/19 07:08 09/06/19 07:08 Labs: Abnormal Lab Results - Last 24 Hours (Table) 09/05/19 09/05/19 09/05/19 Range/Units 17:06 17:06 17:06 WBC 13.0 H (3.8-10.6) k/uL RBC (3.80-5.40) m/uL Hgb (11.4-16.0) gm/dL Hct (34.0-46.0) % MCHC 30.6 L (31.0-37.0) g/dL Plt Count 697 H (150-450) k/uL Neutrophils # 9.0 H (1.3-7.7) k/uL APTT 21.9 L (22.0-30.0) sec Potassium 5.2 H (3.5-5.1) mmol/L Chloride (98-107) mmol/L Carbon Dioxide 18 L (22-30) mmol/L Creatinine 0.41 L (0.52-1.04) mg/dL Glucose 126 H (74-99) mg/dL Plasma Lactic Acid Uday (0.7-2.0) mmol/L Calcium (8.4-10.2) mg/dL AST 47 H (14-36) U/L Urine Appearance (Clear) Urine Protein (Negative) Urine Blood (Negative) Urine Nitrite (Negative) Ur Leukocyte Esterase (Negative) Urine RBC (0-5) /hpf Urine WBC (0-5) /hpf Ur Squamous Epith Cells (0-4) /hpf Calcium Oxalate Crystal (None) /hpf Urine Bacteria (None) /hpf Urine Mucus (None) /hpf 09/05/19 09/05/19 09/05/19 Range/Units 17:06 17:06 21:20 WBC (3.8-10.6) k/uL RBC (3.80-5.40) m/uL Hgb (11.4-16.0) gm/dL Hct (34.0-46.0) % MCHC (31.0-37.0) g/dL Plt Count (150-450) k/uL Neutrophils # (1.3-7.7) k/uL APTT (22.0-30.0) sec Potassium (3.5-5.1) mmol/L Chloride (98-107) mmol/L Carbon Dioxide (22-30) mmol/L Creatinine (0.52-1.04) mg/dL Glucose (74-99) mg/dL Plasma Lactic Acid Uday 5.0 H* 2.2 H* (0.7-2.0) mmol/L Calcium (8.4-10.2) mg/dL AST (14-36) U/L Urine Appearance Turbid H (Clear) Urine Protein 1+ H (Negative) Urine Blood Large H (Negative) Urine Nitrite Positive H (Negative) Ur Leukocyte Esterase Large H (Negative) Urine RBC >182 H (0-5) /hpf Urine WBC >182 H (0-5) /hpf Ur Squamous Epith Cells 8 H (0-4) /hpf Calcium Oxalate Crystal Few H (None) /hpf Urine Bacteria Many H (None) /hpf Urine Mucus Many H (None) /hpf 09/06/19 09/06/19 Range/Units 07:08 07:08 WBC 14.3 H (3.8-10.6) k/uL RBC 3.75 L (3.80-5.40) m/uL Hgb 10.5 L D (11.4-16.0) gm/dL Hct 33.9 L (34.0-46.0) % MCHC 30.9 L (31.0-37.0) g/dL Plt Count 476 H (150-450) k/uL Neutrophils # (1.3-7.7) k/uL APTT (22.0-30.0) sec Potassium (3.5-5.1) mmol/L Chloride 108 H (98-107) mmol/L Carbon Dioxide (22-30) mmol/L Creatinine 0.33 L (0.52-1.04) mg/dL Glucose (74-99) mg/dL Plasma Lactic Acid Uday (0.7-2.0) mmol/L Calcium 8.1 L (8.4-10.2) mg/dL AST (14-36) U/L Urine Appearance (Clear) Urine Protein (Negative) Urine Blood (Negative) Urine Nitrite (Negative) Ur Leukocyte Esterase (Negative) Urine RBC (0-5) /hpf Urine WBC (0-5) /hpf Ur Squamous Epith Cells (0-4) /hpf Calcium Oxalate Crystal (None) /hpf Urine Bacteria (None) /hpf Urine Mucus (None) /hpf Microbiology - Last 24 Hours (Table) 09/05/19 17:06 Urine Culture - Preliminary Urine,Voided Assessment and Plan Assessment: Sepsis likely related to stage IV sacral ulcer versus UTI -Patient initially met sepsis criteria with tachycardia, leukocytosis and a positive source of infection. -Lactic acid negative -Continue IV antibiotics as discussed below -IV hydration with normal saline 90 mL/h -Follow blood and urine cultures Stage IV sacral ulcer -Continue with daptomycin to complete course -ID consulted -Wound care -Patient had surgical debridement during previous hospitalization last month -Continue with Hemphill catheter due to incontinence and ulcer. Abnormal UA in the setting of indwelling Hemphill catheter -Continue with ceftriaxone (patient received single dose in the ED uneventfully) -Discussed with nursing, unsure if patient presented with Hemphill catheter, plans to change if that is the case. Lactic acidosis, improved -Monitor to resolution Thrombocytosis -Slightly above baseline -Monitor CBC for now DVT prophylaxis -Charlie [Patient admitted for sepsis with multiple source for infection. Started on daptomycin and Rocephin. Infectious disease consulted. She is pending clinical improvement. Likely DC in 2-3 days.]
--- NOTE | 2019-09-07 01:23 | P.CONS ---
History of Present Illness - Reason for Consult Consult date: 09/06/19 sepsis Requesting physician: London Yanez - Chief Complaint weakenss and cloudy urine x 2 days - History of Present Illness Patient is 83-year-old female who was recently admitted to this facility in this patient who did have a infected sacral pressure ulcer patient is status post surgical debridement of the same with a wound culture did grew MRSA anaerobes and Afia patient did get a PICC line and she was advised a 6- week course of IV vancomycin along with Diflucan and Flagyl which apparently the patient has been receiving at the alf unfortunately the patient did not follow-up with us in the outpatient setting because of the current pandemic, patient was recently discharged from the alf on 09/02/2019 and the PICC line was not discontinued as it should have been patient has not been brought back to the [facility] ER by the family with concern for worsening of her sacral wound as per the wound care nurse at home who noticed more tunneling and the urine was noticed to be more darker patient did have a chronic indwelling Hemphill catheter and is not clear why this catheter has been changed last patient on presentation to the hospital has been afebrile she did have a white count of 13,000 repeat is 14.3 mild lactic acidosis urine has been positive patient was started on Rocephin has been admitted to hospital infectious disease was consulted for further management of antibiotic therapy patient is currently lethargic and is unable provide reliable history at this point so most information has been obtained from review the chart and talking to nursing staff. Review of Systems Positive point has been mentioned in HPI rest of the systems are negative Past Medical History Past Medical History: Hypertension Additional Past Medical History / Comment(s): depression anxiety History of Any Multi-Drug Resistant Organisms: MRSA Year Discovered:: 08/01/19 MDRO Source:: SACRAL ULCER MRSA Past Surgical History: Section, Cholecystectomy, Hysterectomy, Tonsillectomy Additional Past Surgical History / Comment(s): eye Past Psychological History: Anxiety, Depression Smoking Status: Never smoker Past Alcohol Use History: None Reported Past Drug Use History: None Reported - Past Family History Father History Unknown: Yes Medications and Allergies Home Medications Medication Instructions Recorded Confirmed Type Apixaban [Eliquis] 5 mg PO BID 07/29/19 09/05/19 History Sertraline [Zoloft] 25 mg PO DAILY 07/29/19 09/05/19 History Fluconazole [Diflucan] 200 mg PO DAILY #42 tab 08/05/19 09/05/19 Rx metroNIDAZOLE [Flagyl] 500 mg PO TID #156 tab 08/05/19 09/05/19 Rx traMADol-ACETAMINOP 37.5-325MG 1 tab PO QID PRN #12 tab 08/05/19 09/05/19 Rx [Ultracet] Acetaminophen Tab [Tylenol] 650 mg PO Q6H PRN 09/05/19 09/05/19 History DAPTOmycin [Cubicin Rf] 400 mg IVPB Q48H 09/05/19 09/05/19 History Allergies Allergy/AdvReac Type Severity Reaction Status Date / Time azithromycin [From Zithromax] Allergy Mild Nausea & Verified 09/05/19 17:35 Vomiting & Diarrhea Iodinated Contrast Media Allergy Mild Unknown Verified 09/05/19 17:35 [Iodinated Contrast Media - IV Dye] Penicillins Allergy Itching Verified 09/05/19 17:35 Physical Exam Vitals: Vital Signs Temp Pulse Pulse Resp BP BP Pulse Ox 09/06/19 11:12 18 09/06/19 11:05 98.4 F 70 109/57 99 09/06/19 08:00 18 09/06/19 04:00 97.8 F 63 18 105/53 96 09/05/19 23:05 98.6 F 89 18 131/69 90 L 09/05/19 21:45 99.1 F 90 16 115/65 99 09/05/19 20:15 99 16 124/67 99 09/05/19 20:00 103 H 16 127/69 99 09/05/19 19:30 99 16 119/60 99 09/05/19 18:41 96 16 157/95 99 09/05/19 17:34 102 H 16 141/80 99 09/05/19 16:44 99.1 F 118 H 16 186/98 98 09/05/19 16:38 86 16 148/68 99 Intake and Output 09/05/19 09/06/19 09/06/19 22:59 06:59 14:59 Intake Total 900 Output Total 375 400 Balance 900 -375 -400 Intake: Oral 900 Output: Urine 375 400 Other: Voiding Method Indwelling Catheter Indwelling Catheter Indwelling Catheter Weight 54.431 kg 57 kg 57 kg GENERAL DESCRIPTION: Elderly female lying in bed, no distress. No tachypnea or accessory muscle of respiration use. HEENT: Shows Pallor , no scleral icterus. Oral mucous membrane is dry. NECK: Trachea central, no thyromegaly. LUNGS: Unlabored breathing. Decreased breath sounds at bases. No wheeze or crackle. HEART: S1, S2, regular rate and rhythm. ABDOMEN: Soft, no tenderness , guarding or rigidity EXTREMITIES: No edema of feet. SKIN: Stage IV sacral pressure ulcer with some slough tissue no significant surrounding swelling redness or any drainage. NEUROLOGICAL: The patient is lethargic but arousable however orientation could not be determined. Results CBC & Chem 7: 09/06/19 07:08 09/06/19 07:08 Labs: Abnormal Lab Results - Last 24 Hours (Table) 09/05/19 09/05/19 09/05/19 Range/Units 17:06 17:06 17:06 WBC 13.0 H (3.8-10.6) k/uL RBC (3.80-5.40) m/uL Hgb (11.4-16.0) gm/dL Hct (34.0-46.0) % MCHC 30.6 L (31.0-37.0) g/dL Plt Count 697 H (150-450) k/uL Neutrophils # 9.0 H (1.3-7.7) k/uL APTT 21.9 L (22.0-30.0) sec Potassium 5.2 H (3.5-5.1) mmol/L Chloride (98-107) mmol/L Carbon Dioxide 18 L (22-30) mmol/L Creatinine 0.41 L (0.52-1.04) mg/dL Glucose 126 H (74-99) mg/dL Plasma Lactic Acid Uday (0.7-2.0) mmol/L Calcium (8.4-10.2) mg/dL AST 47 H (14-36) U/L Urine Appearance (Clear) Urine Protein (Negative) Urine Blood (Negative) Urine Nitrite (Negative) Ur Leukocyte Esterase (Negative) Urine RBC (0-5) /hpf Urine WBC (0-5) /hpf Ur Squamous Epith Cells (0-4) /hpf Calcium Oxalate Crystal (None) /hpf Urine Bacteria (None) /hpf Urine Mucus (None) /hpf 09/05/19 09/05/19 09/05/19 Range/Units 17:06 17:06 21:20 WBC (3.8-10.6) k/uL RBC (3.80-5.40) m/uL Hgb (11.4-16.0) gm/dL Hct (34.0-46.0) % MCHC (31.0-37.0) g/dL Plt Count (150-450) k/uL Neutrophils # (1.3-7.7) k/uL APTT (22.0-30.0) sec Potassium (3.5-5.1) mmol/L Chloride (98-107) mmol/L Carbon Dioxide (22-30) mmol/L Creatinine (0.52-1.04) mg/dL Glucose (74-99) mg/dL Plasma Lactic Acid Uday 5.0 H* 2.2 H* (0.7-2.0) mmol/L Calcium (8.4-10.2) mg/dL AST (14-36) U/L Urine Appearance Turbid H (Clear) Urine Protein 1+ H (Negative) Urine Blood Large H (Negative) Urine Nitrite Positive H (Negative) Ur Leukocyte Esterase Large H (Negative) Urine RBC >182 H (0-5) /hpf Urine WBC >182 H (0-5) /hpf Ur Squamous Epith Cells 8 H (0-4) /hpf Calcium Oxalate Crystal Few H (None) /hpf Urine Bacteria Many H (None) /hpf Urine Mucus Many H (None) /hpf 09/06/19 09/06/19 Range/Units 07:08 07:08 WBC 14.3 H (3.8-10.6) k/uL RBC 3.75 L (3.80-5.40) m/uL Hgb 10.5 L D (11.4-16.0) gm/dL Hct 33.9 L (34.0-46.0) % MCHC 30.9 L (31.0-37.0) g/dL Plt Count 476 H (150-450) k/uL Neutrophils # (1.3-7.7) k/uL APTT (22.0-30.0) sec Potassium (3.5-5.1) mmol/L Chloride 108 H (98-107) mmol/L Carbon Dioxide (22-30) mmol/L Creatinine 0.33 L (0.52-1.04) mg/dL Glucose (74-99) mg/dL Plasma Lactic Acid Uday (0.7-2.0) mmol/L Calcium 8.1 L (8.4-10.2) mg/dL AST (14-36) U/L Urine Appearance (Clear) Urine Protein (Negative) Urine Blood (Negative) Urine Nitrite (Negative) Ur Leukocyte Esterase (Negative) Urine RBC (0-5) /hpf Urine WBC (0-5) /hpf Ur Squamous Epith Cells (0-4) /hpf Calcium Oxalate Crystal (None) /hpf Urine Bacteria (None) /hpf Urine Mucus (None) /hpf Microbiology - Last 24 Hours (Table) 09/05/19 17:06 Urine Culture - Preliminary Urine,Voided Assessment and Plan Assessment: 1-patient with stage IV sacral pressure ulcer with recent surgical debridement and culture did grew multiple pathogens including MRSA Afia and anaerobes for the patient has completed her 6 weeks of IV antibiotic therapy unfortunately the patient did not have a follow-up with us so we could have access her wound and change any management is currently sacral wound does not show significant signs of inflammation clinically. 2-patient with a positive UA from indwelling Hemphill catheter and is not clear when the catheter has been changed with concern for possible cath versus UTI versus Hemphill colonization (1) UTI (urinary tract infection) Current Visit: Yes Status: Acute Code(s): N39.0 - URINARY TRACT INFECTION, SITE NOT SPECIFIED SNOMED Code(s): 24278299 (2) Sacral pressure ulcer Current Visit: Yes Status: Acute Code(s): L89.159 - PRESSURE ULCER OF SACRAL REGION, UNSPECIFIED STAGE SNOMED Code(s): 715174460 Plan: 1-change Hemphill catheter and obtain urine culture from the new Hemphill 2-local wound care to the sacral wound with Santyl followed by moist dressing and keep the area of the pressure 3-continue the current empiric antibiotic while waiting for the culture finalized We will follow on clinical condition and cultures to further adjust medication if needed Thank you for this consultation we will follow the patient along with you Time with Patient: Greater than 30
[2019-09-07] MEDS: SODIUM CHLORIDE 0.9% 1,000 ML IV SCH ×2 (05:39→09:59)
[2019-09-07 05:59] LABS: Basophils # (A) 0.1 k/uL (0-0.2); Basophils % (A) 1 %; Eosinophils # (A) 0.2 k/uL (0-0.7); Eosinophils % (A) 2 %; HGB 10.6 gm/dL (11.4-16.0); Hypochromasia Moderate; Lymphocytes # (A) 2.3 k/uL (1.0-4.8); Lymphocytes % (A) 17 %; MCH 27.8 pg (25.0-35.0); MCHC 31.1 g/dL (31.0-37.0); MCV 89.4 fL (80.0-100.0); Mean Platelet Volume 7.4; Monocytes # (A) 0.7 k/uL (0-1.0); Monocytes % (A) 5 %; Neutrophils # (A) 10.3 k/uL (1.3-7.7); Neutrophils % (A) 75 %; Platelet Count 478 k/uL (150-450); RDW 14.5 % (11.5-15.5); WBC 13.8 k/uL (3.8-10.6)
[2019-09-07 06:15] LABS: African American GFR (CKD) >90 (>60 ml/min/1.73 sqM); Anion Gap 5 mmol/L; Blood Urea Nitrogen 4 mg/dL (7-17); C Reactive Protein 46.3 mg/L (<10.0); Calcium 8.3 mg/dL (8.4-10.2); Carbon Dioxide 23 mmol/L (22-30); Chloride 107 mmol/L (98-107); Glucose 78 mg/dL (74-99); Non-African American GFR(CKD) >90 (>60 ml/min/1.73 sqM); Potassium 3.5 mmol/L (3.5-5.1); Sodium 135 mmol/L (137-145)
[2019-09-07 06:48] LABS: Erythrocyte Sedimentation Rate 83 mm/hr (0-20)
--- NOTE | 2019-09-07 07:54 | XR ---
EXAMINATION TYPE: XR sacrum coccyx DATE OF EXAM: 09/07/2019 CLINICAL HISTORY: Sacral decubitus ulcer and pain TECHNIQUE: 3 views of the sacrum and coccyx were obtained. COMPARISON: 07/29/2019 FINDINGS: Decubitus ulceration is redemonstrated on the lateral view with subcutaneous emphysema over the distal sacrum and coccyx. No new erosion is seen of the posterior cortex of the sacrococcygeal j unction. Diffuse osseous demineralization is present however limiting evaluation. IMPRESSION: Redemonstration of subcutaneous emphysema from the known sacral decubitus ulceration over the sacrococcygeal junction without gross evidence of osteomyelitis radiographically. Three-phase mike ne imaging considered to further evaluate the presence of osteomyelitis.
[2019-09-07] MEDS: FLUCONAZOLE 100 MG TAB PO SCH (08:43)
[2019-09-07] MEDS: APIXABAN 5 MG TAB PO SCH ×2 (08:43→21:55)
[2019-09-07] MEDS: traMADol-ACETAMINOP 37.5-325MG 1 EACH TAB PO PRN ×2 (11:51→17:46)
--- NOTE | 2019-09-07 15:45 | P.PN ---
Subjective Progress Note Date: 09/07/19 Principal diagnosis: urinary tract infection Patient was seen and examined. No acute events overnight. Her mentation appears better improved today. Patient reports feeling fatigued and tired. Patient denies any chest pain, shortness of breath or palpitations. No nausea or vomiting. No fever or chills. Patient reports pain in her buttocks area. Objective - Vital Signs Vital signs: Vital Signs Temp 98.6 F 09/07/19 11:56 Pulse 86 09/07/19 11:56 Resp 18 09/07/19 14:52 BP 163/68 09/07/19 11:56 Pulse Ox 95 09/07/19 11:56 Intake & Output 09/06/19 09/07/19 09/07/19 18:59 06:59 18:59 Intake Total 540 Output Total 400 1900 Balance -400 -1360 Weight 57 kg 56.5 kg Intake: Oral 540 Output: Urine 400 1900 Other: Voiding Method Indwelling Catheter Indwelling Catheter Indwelling Catheter - Exam General: [non toxic], [no distress], [appears at stated age] Derm: [warm], [dry], [large decubitus ulcer, stage IV with serosanguineous discharge] Head: [atraumatic], [normocephalic], [symmetric] Eyes: [EOMI], [no lid lag], [anicteric sclera] Mouth: [no lip lesion], [mucus membranes moist] Cardiovascular: [S1S2 reg], [no murmur], [positive DP pulse bilateral], Lungs: [CTA bilateral], [no rhonchi, no rales] , [no accessory muscle use] Abdominal: [soft], [ nontender to palpation], [no guarding], [no appreciable organomegaly] Ext: [no gross muscle atrophy], [no edema], [contractures of the bilateral upper extremities and left foot] Neuro: [no focal neuro deficits] Psych: [Pleasantly confused] - Labs CBC & Chem 7: 09/07/19 05:21 09/07/19 05:21 Labs: Abnormal Lab Results - Last 24 Hours (Table) 09/07/19 09/07/19 Range/Units 05: 05: WBC 13.8 H (3.8-10.6) k/uL Hgb 10.6 L (11.4-16.0) gm/dL Plt Count 478 H (150-450) k/uL Neutrophils # 10.3 H (1.3-7.7) k/uL ESR 83 H (0-20) mm/hr Sodium 135 L (137-145) mmol/L BUN 4 L (7-17) mg/dL Creatinine 0.34 L (0.52-1.04) mg/dL Calcium 8.3 L (8.4-10.2) mg/dL C-Reactive Protein 46.3 H (<10.0) mg/L Microbiology - Last 24 Hours (Table) 09/05/19 17:06 Blood Culture Gram Stain - Preliminary Blood Blood Culture - Preliminary Coagulase Negative Staph 09/05/19 17:06 Blood Culture - Final Blood 09/05/19 17:06 Urine Culture - Preliminary Urine,Voided Gram Neg Bacilli Assessment and Plan Assessment: Sepsis likely related to stage IV sacral ulcer versus UTI versus infected PICC line -Patient initially met sepsis criteria with tachycardia, leukocytosis and a positive source of infection. -Lactic acid negative -Continue IV antibiotics as discussed below -IV hydration with normal saline 90 mL/h -Follow blood and urine cultures Staphylococcus bacteremia -Possibly related to PICC line -Patient is being covered with daptomycin IV -Infectious disease on board Stage IV sacral ulcer -Continue with daptomycin to complete course -ID consulted -Wound care -Patient had surgical debridement during previous hospitalization last month -Continue with Hemphill catheter due to incontinence and ulcer. Abnormal UA in the setting of indwelling Hemphill catheter -Continue with ceftriaxone (patient received single dose in the ED uneventfully) -Urine culture shows gram-negative bacilli -Discussed with nursing, unsure if patient presented with Hemphill catheter, plans to change Hemphill and repeat urine culture Lactic acidosis, improved -Monitor to resolution Thrombocytosis -Slightly above baseline -Monitor CBC for now DVT prophylaxis -Kourtneyquis [Patient admitted for sepsis with multiple source for infection. Started on daptomycin and Rocephin. Infectious disease consulted. She is pending clinical improvement. Likely DC in 2-3 days.]
[2019-09-07] MEDS: CEFEPIME 2 GM in SODIUM CHLORIDE 0.9% 100 ML IVPB SCH (21:52)
--- NOTE | 2019-09-07 22:30 | PN ---
PROGRESS NOTE DATE OF SERVICE: 09/07/2019 REASON FOR FOLLOWUP: Sacral pressure ulcer, UTI and bacteremia. INTERVAL HISTORY: The patient is currently afebrile. The patient is more awake and alert today. She is breathing comfortably. Has been complaining of pain to the sacral area. No abdominal pain. No diarrhea. PHYSICAL EXAMINATION: Blood pressure 131/66 with a pulse of 91, temperature 98.2. She is 96% on room air. General description: The patient is an elderly female lying in bed in no distress. Respiratory system: Unlabored breathing. Clear to auscultation anteriorly. HEART S1, S2. Regular rate and rhythm. Abdomen soft, no tenderness. LABS: Hemoglobin is 10.2, white count 13.8. BUN of 4. Creatinine 0.34. Urine has been finalized with Pseudomonas aeruginosa. X-ray of the sacrum with no evidence of osteomyelitis radiographically. DIAGNOSTIC IMPRESSION/PLAN: 1. Patient admitted to the hospital with sacral wound in this patient recently treated with prolonged course of antibiotic therapy now admitted to the hospital with weakness and worsening of the wound, though no worsening noticed clinically. The patient also have a chronic indwelling Hemphill catheter. Culture from it showing Pseudomonas aeruginosa. Antibiotic will be adjusted to cefepime and Rocephin will be discontinued. Hemphill catheter change was requested yesterday, not done. Will request again. Local care to the sacral wound with Santyl followed by moist dressing and monitor clinical course closely. 2. Bacteremia with gram-positive cocci possibly related to the PICC line. Blood culture will be repeated. The patient is on daptomycin to continue. 3. Continue supportive care. MMODL / IJN: [id number] /
[2019-09-08] MEDS: traMADol-ACETAMINOP 37.5-325MG 1 EACH TAB PO PRN ×2 (04:48→20:10)
[2019-09-08] MEDS: SODIUM CHLORIDE 0.9% 1,000 ML IV SCH ×2 (04:50→20:09)
[2019-09-08] MEDS: FLUCONAZOLE 100 MG TAB PO SCH (07:48)
[2019-09-08] MEDS: APIXABAN 5 MG TAB PO SCH ×2 (07:48→20:09)
[2019-09-08] MEDS: CEFEPIME 2 GM in SODIUM CHLORIDE 0.9% 100 ML IVPB SCH ×2 (07:48→20:10)
--- NOTE | 2019-09-08 15:08 | P.PN ---
Subjective Progress Note Date: 09/08/19 Principal diagnosis: urinary tract infection Patient was seen and examined. No acute events overnight. Her mentation appears back to baseline. She reports well controlled pain in her buttocks. She has a better sense of humor today. Able to discuss the case with her daughter ye sterday. Patient reports feeling fatigued and tired. Patient denies any chest pain, shortness of breath or palpitations. No nausea or vomiting. No fever or chills. Objective - Vital Signs Vital signs: Vital Signs Temp 98.5 F 09/08/19 12:00 Pulse 80 09/08/19 12:00 Resp 16 09/08/19 12:00 BP 142/74 09/08/19 12:00 Pulse Ox 95 09/08/19 12:00 Intake & Output 09/07/19 09/08/19 09/08/19 18:59 06:59 18:59 Intake Total 118 Output Total 1450 Balance 118 -1450 Weight 57.1 kg Intake: Oral 118 Output: Urine 1450 Other: Voiding Method Indwelling Catheter Indwelling Catheter Indwelling Catheter # Bowel Movements 1 1 - Exam General: [non toxic], [no distress], [appears at stated age] Derm: [warm], [dry], [large decubitus ulcer, stage IV with serosanguineous discharge] Head: [atraumatic], [normocephalic], [symmetric] Eyes: [EOMI], [no lid lag], [anicteric sclera] Mouth: [no lip lesion], [mucus membranes moist] Cardiovascular: [S1S2 reg], [no murmur], [positive DP pulse bilateral], Lungs: [CTA bilateral], [no rhonchi, no rales] , [no accessory muscle use] Abdominal: [soft], [ nontender to palpation], [no guarding], [no appreciable organomegaly] Ext: [no gross muscle atrophy], [no edema], [contractures of the bilateral upper extremities and left foot] Neuro: [no focal neuro deficits] Psych: [Pleasantly confused] - Labs CBC & Chem 7: 09/07/19 05:21 09/07/19 05:21 Labs: Microbiology - Last 24 Hours (Table) 09/07/19 15:00 Urine Culture - Preliminary Urine,Catheterized 09/05/19 17:06 Blood Culture Gram Stain - Preliminary Blood Blood Culture - Preliminary Coagulase Negative Staph 09/05/19 17:06 Urine Culture - Final Urine,Voided Pseudomonas aeruginosa Assessment and Plan Assessment: Sepsis likely related to stage IV sacral ulcer versus UTI versus infected PICC line -Patient initially met sepsis criteria with tachycardia, leukocytosis and a positive source of infection. -Lactic acid negative -Continue IV antibiotics as discussed below -DC IVF and encourage hydration by mouth -Follow blood and urine cultures Staphylococcus bacteremia -Possibly related to PICC line, discussed with nursing to remove and send for cu lture. -Patient is being covered with daptomycin IV Day 4 -Infectious disease on board Stage IV sacral ulcer -Continue with daptomycin Day 4 -ID consulted -Wound care -Patient had surgical debridement during previous hospitalization last month -Continue with Hemphill catheter due to incontinence and ulcer. Abnormal UA in the setting of indwelling Hemphill catheter -Continue with cefepime Day 2 -Urine culture shows Pseudomonas -Discussed with nursing, unsure if patient presented with Hemphill catheter, plans to change Hemphill and repeat urine culture Lactic acidosis, improved -Monitor to resolution Thrombocytosis -Slightly above baseline -Monitor CBC for now DVT prophylaxis -Eliquis [Patient admitted for sepsis with multiple source for infection. Started on daptomycin and cefepime. Infectious disease consulted. Needs follow-up urine culture (after indwelling Hemphill catheter was replaced), culture from PICC line and repeat blood culture.]
[2019-09-08] MEDS: COLLAGENASE 250 UNIT/GM OINTMENT 30 GM TUBE TOPICAL SCH (17:27)
--- NOTE | 2019-09-08 17:51 | PN ---
PROGRESS NOTE DATE OF SERVICE: 09/08/2019 REASON FOR FOLLOW UP: 1. Sacral pressure ulcer. 2. Urinary tract infection. 3. Positive blood culture. INTERVAL HISTORY: The patient is currently afebrile. The patient is breathing comfortably. Still complaining of pain to the sacral area. No chest pain, shortness of breath or cough. No abdominal pain or diarrhea. PHYSICAL EXAMINATION: Blood pressure 140/74 with a pulse of 80, temperature 98.5. She is 95% on room air. General description is an elderly female lying in bed in no distress. RESPIRATORY system: Unlabored breathing, clear to auscultation anteriorly. HEART S1, S2. Regular rate and rhythm. ABDOMEN: Soft, no tenderness. LABS: No new labs have been obtained today. Blood cultures on September 06 has been negative so far. DIAGNOSTIC IMPRESSION/PLAN: 1. Patient admitted to the hospital with chronic nonhealing wound to the sacral area with recent episode of infected and has completed her antibiotic therapy. Continue local wound care with Santyl followed by moist dressing and keep the area off the pressure. 2. Positive blood culture coagulase negative Staph. Possible related to the PICC line so far daptomycin. 3. Positive urine culture with Pseudomonas possible catheter associated. Repeat UA was requested after change of Hemphill catheter not done, will be requested again. 4. Continue with cefepime. 5. Continue supportive care. MMLISAL / IJN: [id number] /
[2019-09-09] MEDS: traMADol-ACETAMINOP 37.5-325MG 1 EACH TAB PO PRN ×3 (03:05→20:37)
[2019-09-09] MEDS: APIXABAN 5 MG TAB PO SCH ×2 (07:57→20:37)
[2019-09-09] MEDS: CEFEPIME 2 GM in SODIUM CHLORIDE 0.9% 100 ML IVPB SCH ×2 (07:57→20:40)
[2019-09-09] MEDS: FLUCONAZOLE 100 MG TAB PO SCH (07:57)
--- NOTE | 2019-09-09 12:36 | P.GSCN ---
History of Present Illness Consult date: 09/09/19 Reason for Consult: Sacral ulcer Requesting physician: Wilmer Morris History of present illness: CHIEF COMPLAINT: Sacral ulcer HISTORY OF PRESENT ILLNESS: 83-year-old female was admitted to the hospital secondary to sepsis. General surgery was consulted for further evaluation of sacral ulcer. Patient examined this morning at the bedside with Dr. Mclaughlin. PAST MEDICAL HISTORY: See list. PAST SURGICAL HISTORY: See list. SOCIAL HISTORY: No illicit drug use. REVIEW OF SYSTEMS: Unable to obtain PHYSICAL EXAM: VITAL SIGNS: Reviewed. GENERAL: Well-developed in no acute distress. HEENT: No sclera icterus. Extraocular movements grossly intact. Moist buccal mucosa. Head is atraumatic, normocephalic. ABDOMEN: Soft. Nondistended. Nontender. NEUROLOGIC: Patient lethargic during examination SKIN: Sacral decubitus ulcer noted LABORATORY DATA: WBC 13.8. Hemoglobin 10.6. Platelet count 478. ASSESSMENT: 1. Stage IV sacral ulcer PLAN: Dr. Mclaughlin examined wound at the bedside. No need for surgical debridement at this time. Continue local wound care per infectious disease recommendations Nurse practitioner note has been reviewed by physician. Signing provider agrees with the documented findings, assessment, and plan of care. Past Medical History Past Medical History: Hypertension Additional Past Medical History / Comment(s): depression anxiety History of Any Multi-Drug Resistant Organisms: MRSA Year Discovered:: 08/01/19 MDRO Source:: SACRAL ULCER MRSA Past Surgical History: Section, Cholecystectomy, Hysterectomy, Tonsillectomy Additional Past Surgical History / Comment(s): eye Past Psychological History: Anxiety, Depression Smoking Status: Never smoker Past Alcohol Use History: None Reported Past Drug Use History: None Reported - Past Family History Father History Unknown: Yes Medications and Allergies Home Medications Medication Instructions Recorded Confirmed Type Apixaban [Eliquis] 5 mg PO BID 07/29/19 09/05/19 History Sertraline [Zoloft] 25 mg PO DAILY 07/29/19 09/05/19 History Fluconazole [Diflucan] 200 mg PO DAILY #42 tab 08/05/19 09/05/19 Rx metroNIDAZOLE [Flagyl] 500 mg PO TID #156 tab 08/05/19 09/05/19 Rx traMADol-ACETAMINOP 37.5-325MG 1 tab PO QID PRN #12 tab 08/05/19 09/05/19 Rx [Ultracet] Acetaminophen Tab [Tylenol] 650 mg PO Q6H PRN 09/05/19 09/05/19 History DAPTOmycin [Cubicin Rf] 400 mg IVPB Q48H 09/05/19 09/05/19 History Allergies Allergy/AdvReac Type Severity Reaction Status Date / Time azithromycin [From Zithromax] Allergy Mild Nausea & Verified 09/05/19 17:35 Vomiting & Diarrhea Iodinated Contrast Media Allergy Mild Unknown Verified 09/05/19 17:35 [Iodinated Contrast Media - IV Dye] Penicillins Allergy Itching Verified 09/05/19 17:35 Surgical - Exam Vital Signs Pulse Resp BP Pulse Ox 86 16 148/68 99 09/05/19 16:38 09/05/19 16:38 09/05/19 16:38 09/05/19 16:38 Results - Labs 09/07/19 05:21 09/07/19 05:21 Microbiology - Last 24 Hours (Table) 09/08/19 19:00 Catheter Tip Culture - Preliminary Picc Line 09/05/19 17:06 Blood Culture Gram Stain - Final Blood Blood Culture - Final Staphylococcus epidermidis 09/07/19 15:00 Urine Culture - Final Urine,Catheterized 09/07/19 11:39 Blood Culture - Preliminary Blood No Growth after 24 hours
--- NOTE | 2019-09-09 12:50 | P.PN ---
Subjective Progress Note Date: 09/09/19 Principal diagnosis: UTI No acute events overnight. Her mentation appears at baseline. She is slow to respond to questions. She is still having pain in her back, as well as weakness. No chest pain, shortness of breath or palpitations. No nausea or vomiting. No fever or chills. Objective - Vital Signs Vital signs: Vital Signs Temp 99.2 F 09/09/19 12:00 Pulse 92 09/09/19 12:00 Resp 16 09/09/19 12:00 BP 119/57 09/09/19 12:00 Pulse Ox 94 L 09/09/19 12:00 Intake & Output 09/08/19 09/09/19 09/09/19 18:59 06:59 18:59 Intake Total 200 390 Output Total 600 250 Balance -400 140 Weight 67 kg Intake: Oral 200 390 Output: Urine 600 250 Other: Voiding Method Indwelling Catheter Indwelling Catheter Indwelling Catheter # Bowel Movements 1 - Exam Constitutional: No acute distress, lethargic Eyes:Anicteric sclerae, moist conjunctiva, no lid-lag, PERRLA, ENMT: Oropharynx clear, no erythema, exudates Neck: Supple, FROM, no masses, or JVD, No carotid bruits, No thyromegaly Lungs: Clear to auscultation, Clear to percussion, Normal respiratory effort, no accessory muscle use Cardiovascular: RRR, No murmurs, gallops, or rubs, No peripheral edema Abdominal: Soft, Nontender, no guarding, rebound or rigidity, Normoactive bowel sounds, No hepatomegaly, No splenomegaly, No palpable mass Skin: Unstagable 9 by 11cm ulcer in the sacral area. No rash. Extremities: Muscular contractures. No clubbing, Pedal pulses intact and symmetrical, Radial pulses intact and symmetrical, No calf tenderness Neuro: General weakness, no focal sensory deficits - Labs CBC & Chem 7: 09/07/19 05:21 09/07/19 05:21 Labs: Microbiology - Last 24 Hours (Table) 09/08/19 19:00 Catheter Tip Culture - Preliminary Picc Line 09/05/19 17:06 Blood Culture Gram Stain - Final Blood Blood Culture - Final Staphylococcus epidermidis 09/07/19 15:00 Urine Culture - Final Urine,Catheterized 09/07/19 11:39 Blood Culture - Preliminary Blood No Growth after 24 hours Assessment and Plan Plan: Sepsis likely related to stage IV sacral ulcer versus UTI versus infected PICC line -Patient initially met sepsis criteria with tachycardia, leukocytosis and a positive source of infection. -Lactic acid negative -Continue IV antibiotics as discussed below -Encourage hydration by mouth Staphylococcus bacteremia -Possibly related to PICC line, removed and cultured, pending -Patient is being covered with daptomycin IV Day 5 -Infectious disease on board Stage IV sacral ulcer -Continue with daptomycin and cefepime -ID consulted -Wound care -Patient had surgical debridement during previous hospitalization last month -Consult general surgery for possibly repeat debridement. -Continue with Hemphill catheter due to incontinence and ulcer. UTI in the setting of indwelling Hemphill catheter -Continue with cefepime Day 4 -Urine culture shows Pseudomonas Lactic acidosis, improved -Monitor to resolution Thrombocytosis -Slightly above baseline -Monitor CBC for now DVT prophylaxis -Charlie
[2019-09-09] MEDS: COLLAGENASE 250 UNIT/GM OINTMENT 30 GM TUBE TOPICAL SCH (16:30)
--- NOTE | 2019-09-10 03:04 | PN ---
PROGRESS NOTE DATE OF SERVICE: 09/09/2019 REASON FOR FOLLOWUP: 1. Sacral pressure ulcer. 2. UTI. 3. Positive blood culture. INTERVAL HISTORY: The patient did have low fever of 99.9 this afternoon. The patient afebrile since then. The patient remains to be lethargic though denies having any chest pain or cough. Pain to the sacral area, but no other symptom. Hemphill has been changed and PICC line has been discontinued. PHYSICAL EXAMINATION: Blood pressure 144/85 with a pulse of 91, temperature 98.1. She is 92% on room air. General description is an elderly female lying in bed in no distress. RESPIRATORY SYSTEM: Unlabored breathing, clear to auscultation anteriorly. HEART: S1, S2. Regular rate and rhythm. ABDOMEN: Soft, no tenderness. Examination of sacral wound did have some slough tissue, but no significant surrounding inflammatory changes or any foul-smelling. LABS: No new labs have been obtained today. Catheter tip cultures with coagulase-negative Staph. Blood culture on September 06 has been negative. The urine repeat is negative. DIAGNOSTIC IMPRESSION AND PLAN: 1. Patient presented to hospital with multiple symptoms with generalized weakness in this patient who recently completed antibiotic therapy for her infected sacral pressure ulcer. Unfortunately, the PICC line was not discontinued and now did have evidence of Staphylococcus epidermidis bacteremia, more likely related to the PICC line. Blood culture repeat has been negative so far. Patient is covered with daptomycin to be continued with a plan for 2-week course of antibiotic therapy for her bacteremia. 2. Patient with positive urine with Pseudomonas, possibly Hemphill colonization as repeat urine culture negative. Cefepime will be discontinued on discharge. 3. Sacral pressure ulcer. Local care to continue with Santyl followed by moist dressing, keep the area off the pressure and plan for possible wound VAC in outpatient setting. MMODL / IJN: [id number] /
[2019-09-10] MEDS: traMADol-ACETAMINOP 37.5-325MG 1 EACH TAB PO PRN ×2 (06:11→23:25)
[2019-09-10 07:44] LABS: Basophils # (A) 0.1 k/uL (0-0.2); Basophils % (A) 1 %; Eosinophils # (A) 0.1 k/uL (0-0.7); Eosinophils % (A) 1 %; HCT 35.1 % (34.0-46.0); HGB 10.8 gm/dL (11.4-16.0); Lymphocytes # (A) 2.6 k/uL (1.0-4.8); Lymphocytes % (A) 20 %; MCH 26.9 pg (25.0-35.0); MCHC 30.7 g/dL (31.0-37.0); MCV 87.8 fL (80.0-100.0); Mean Platelet Volume 8.2; Monocytes # (A) 0.9 k/uL (0-1.0); Monocytes % (A) 7 %; Neutrophils # (A) 9.2 k/uL (1.3-7.7); Neutrophils % (A) 71 %; Platelet Count 493 k/uL (150-450); RDW 14.7 % (11.5-15.5)
[2019-09-10 07:54] LABS: African American GFR (CKD) >90 (>60 ml/min/1.73 sqM); Anion Gap 8 mmol/L; Blood Urea Nitrogen 8 mg/dL (7-17); Calcium 8.8 mg/dL (8.4-10.2); Carbon Dioxide 25 mmol/L (22-30); Chloride 101 mmol/L (98-107); Glucose 91 mg/dL (74-99); Non-African American GFR(CKD) >90 (>60 ml/min/1.73 sqM); Potassium 4.5 mmol/L (3.5-5.1); Sodium 134 mmol/L (137-145)
[2019-09-10 09:17] VITALS: BMI 25.9
[2019-09-10] MEDS: CEFEPIME 2 GM in SODIUM CHLORIDE 0.9% 100 ML IVPB SCH ×2 (10:02→23:24)
[2019-09-10] MEDS: ACETAMINOPHEN TAB 325 MG TAB PO PRN (10:02)
[2019-09-10] MEDS: FLUCONAZOLE 100 MG TAB PO SCH (10:02)
[2019-09-10] MEDS: APIXABAN 5 MG TAB PO SCH ×2 (10:02→23:25)
[2019-09-10 11:50] LABS: C Reactive Protein 37.3 mg/L (<10.0)
--- NOTE | 2019-09-10 12:54 | P.PN ---
<Salma Hernandez - Last Filed: 09/10/19 12:53> Subjective Progress Note Date: 09/10/19 CHIEF COMPLAINT: Sacral ulcer HISTORY OF PRESENT ILLNESS: Patient examined this morning at the bedside. She is resting comfortably in bed. Vital signs are stable. She is afebrile. PHYSICAL EXAM: VITAL SIGNS: Reviewed. GENERAL: Well-developed in no acute distress. HEENT: No sclera icterus. Extraocular movements grossly intact. Moist buccal mucosa. Head is atraumatic, normocephalic. ABDOMEN: Soft. Nondistended. Nontender. NEUROLOGIC: Patient lethargic during examination SKIN: Sacral decubitus ulcer noted ASSESSMENT: 1. Stage IV sacral ulcer PLAN: No need for surgical debridement at this time of sacral ulcer. Continue local wound care per infectious disease recommendations Nurse practitioner note has been reviewed by physician. Signing provider agrees with the documented findings, assessment, and plan of care. Objective - Vital Signs Vital signs: Vital Signs Temp 98.8 F 09/10/19 08:25 Pulse 80 09/10/19 08:25 Resp 16 09/10/19 08:25 BP 114/55 09/10/19 08:25 Pulse Ox 91 L 09/10/19 08:25 Intake & Output 09/09/19 09/10/19 09/10/19 18:59 06:59 18:59 Intake Total 240 Output Total 600 1300 Balance -600 -1060 Weight 66.5 kg 66.5 kg Intake: Oral 240 Output: Urine 600 1300 Other: Voiding Method Indwelling Catheter Indwelling Catheter - Labs CBC & Chem 7: 09/10/19 06:39 09/10/19 06:39 Labs: Abnormal Lab Results - Last 24 Hours (Table) 09/10/19 09/10/19 Range/Units 06:39 06:39 WBC 13.0 H (3.8-10.6) k/uL Hgb 10.8 L (11.4-16.0) gm/dL MCHC 30.7 L (31.0-37.0) g/dL Plt Count 493 H (150-450) k/uL Neutrophils # 9.2 H (1.3-7.7) k/uL Sodium 134 L (137-145) mmol/L Creatinine 0.32 L (0.52-1.04) mg/dL C-Reactive Protein 37.3 H (<10.0) mg/L Microbiology - Last 24 Hours (Table) 09/08/19 19:00 Catheter Tip Culture - Preliminary Picc Line Coagulase Negative Staph 09/07/19 11:39 Blood Culture - Preliminary Blood No Growth after 48 hours <Kirt Mclaughlin - Last Filed: 09/10/19 16:34> Objective - Vital Signs Vital signs: Vital Signs Temp 98.8 F 09/10/19 08:25 Pulse 80 09/10/19 12:10 Resp 16 09/10/19 12:10 BP 119/64 09/10/19 12:10 Pulse Ox 93 L 09/10/19 12:10 Intake & Output 09/09/19 09/10/19 09/10/19 18:59 06:59 18:59 Intake Total 240 Output Total 600 1300 Balance -600 -1060 Weight 66.5 kg 66.5 kg Intake: Oral 240 Output: Urine 600 1300 Other: Voiding Method Indwelling Catheter Indwelling Catheter Indwelling Catheter - Labs CBC & Chem 7: 09/10/19 06:39 09/10/19 06:39 Labs: Abnormal Lab Results - Last 24 Hours (Table) 09/10/19 09/10/19 Range/Units 06:39 06:39 WBC 13.0 H (3.8-10.6) k/uL Hgb 10.8 L (11.4-16.0) gm/dL MCHC 30.7 L (31.0-37.0) g/dL Plt Count 493 H (150-450) k/uL Neutrophils # 9.2 H (1.3-7.7) k/uL ESR 96 H (0-20) mm/hr Sodium 134 L (137-145) mmol/L Creatinine 0.32 L (0.52-1.04) mg/dL C-Reactive Protein 37.3 H (<10.0) mg/L Microbiology - Last 24 Hours (Table) 09/07/19 11:39 Blood Culture - Preliminary Blood No Growth after 72 hours 09/08/19 19:00 Catheter Tip Culture - Preliminary Picc Line Coagulase Negative Staph
--- NOTE | 2019-09-10 12:59 | P.PN ---
Subjective Progress Note Date: 09/10/19 Principal diagnosis: UTI Patient has no new complaint. No pain. No shortness of breath. She is still significantly weak, requiring 24/7 care. Objective - Vital Signs Vital signs: Vital Signs Temp 98.8 F 09/10/19 08:25 Pulse 80 09/10/19 08:25 Resp 16 09/10/19 08:25 BP 114/55 09/10/19 08:25 Pulse Ox 91 L 09/10/19 08:25 Intake & Output 09/09/19 09/10/19 09/10/19 18:59 06:59 18:59 Intake Total 240 Output Total 600 1300 Balance -600 -1060 Weight 66.5 kg 66.5 kg Intake: Oral 240 Output: Urine 600 1300 Other: Voiding Method Indwelling Catheter Indwelling Catheter - Exam Constitutional: No acute distress, lethargic Eyes:Anicteric sclerae, moist conjunctiva, no lid-lag, PERRLA, ENMT: Oropharynx clear, no erythema, exudates Neck: Supple, FROM, no masses, or JVD, No carotid bruits, No thyromegaly Lungs: Clear to auscultation, Clear to percussion, Normal respiratory effort, no accessory muscle use Cardiovascular: RRR, No murmurs, gallops, or rubs, No peripheral edema Abdominal: Soft, Nontender, no guarding, rebound or rigidity, Normoactive bowel sounds, No hepatomegaly, No splenomegaly, No palpable mass Skin: Unstagable 9 by 11cm ulcer in the sacral area. No rash. Extremities: Muscular contractures. No clubbing, Pedal pulses intact and symmetrical, Radial pulses intact and symmetrical, No calf tenderness Neuro: General weakness, no focal sensory deficits - Labs CBC & Chem 7: 09/10/19 06:39 09/10/19 06:39 Labs: Abnormal Lab Results - Last 24 Hours (Table) 09/10/19 09/10/19 Range/Units 06:39 06:39 WBC 13.0 H (3.8-10.6) k/uL Hgb 10.8 L (11.4-16.0) gm/dL MCHC 30.7 L (31.0-37.0) g/dL Plt Count 493 H (150-450) k/uL Neutrophils # 9.2 H (1.3-7.7) k/uL Sodium 134 L (137-145) mmol/L Creatinine 0.32 L (0.52-1.04) mg/dL C-Reactive Protein 37.3 H (<10.0) mg/L Microbiology - Last 24 Hours (Table) 09/08/19 19:00 Catheter Tip Culture - Preliminary Picc Line Coagulase Negative Staph 09/07/19 11:39 Blood Culture - Preliminary Blood No Growth after 48 hours Assessment and Plan Plan: Sepsis likely related to stage IV sacral ulcer versus UTI versus infected PICC line -Patient initially met sepsis criteria with tachycardia, leukocytosis and a positive source of infection. -Lactic acid negative -Continue IV antibiotics as discussed below -Encourage hydration by mouth Staphylococcus bacteremia -Repeat blood cx negative so far -Possibly related to PICC line, removed and cultured, growing coag negative staph -Patient is being covered with daptomycin IV Day 6, will need total of 2 weeks of treatment -D/w infectious disease today, will need picc placed, ordered. Stage IV sacral ulcer -Continue with daptomycin and cefepime -Wound care -Patient had surgical debridement during previous hospitalization last month -General surgery reconsulted--no need for repeat debridement. -Continue with Hemphill catheter due to incontinence and ulcer--changed. UTI in the setting of indwelling Hemphill catheter -Continue with cefepime Day 5 -Urine culture shows Pseudomonas -Will d/c upon discharge Lactic acidosis, improved -Monitor to resolution Thrombocytosis -Slightly above baseline -Monitor CBC for now DVT prophylaxis -Eliquis Disposition: d/w daughter on the phone, she is ok with rehab placement
[2019-09-10 13:47] LABS: Erythrocyte Sedimentation Rate 96 mm/hr (0-20)
[2019-09-10] MEDS: COLLAGENASE 250 UNIT/GM OINTMENT 30 GM TUBE TOPICAL SCH (14:58)
--- NOTE | 2019-09-10 17:23 | PN ---
PROGRESS NOTE DATE OF SERVICE: 09/10/2019 REASON FOR FOLLOWUP: 1. Sacral pressure ulcer. 2. UTI. 3. Positive blood culture. INTERVAL HISTORY: The patient is currently afebrile; still complaining of pain. No chest pain, shortness of breath or cough and no diarrhea. PHYSICAL EXAMINATION: Blood pressure 119/65 with a pulse of 80, temperature 98.8. She is 93% on room air. General description is an elderly female lying in bed in no distress. RESPIRATORY SYSTEM: Unlabored breathing. Clear to auscultation anteriorly. HEART: S1, S2. Regular rate and rhythm. ABDOMEN: Soft. No tenderness. LABS: BUN of 8, creatinine 0.32. Hemoglobin is 10.8, white count 13,000. Catheter tip as well as blood culture with Staph epi. Repeat urine is negative. DIAGNOSTIC IMPRESSION AND PLAN: 1. Patient with a sacral pressure ulcer, for which the patient completed 6 weeks of IV daptomycin. Local wound care to continue with Santyl, moist dressing, and keep the area off pressure. 2. Positive culture with Pseudomonas, possibly Hemphill colonization. Repeat urine culture has been negative. 3. Positive blood culture with Staphylococcus epidermidis, possibly related to the PICC line, which has been discontinued. Repeat blood culture negative. Recommend getting a midline and continue daptomycin for a total of 2 weeks with close outpatient followup. MMODL / IJN: [id number] /
[2019-09-10 21:02] VITALS: RESP 18
--- NOTE | 2019-09-11 10:03 | P.PN ---
Subjective Progress Note Date: 09/11/19 CHIEF COMPLAINT: Sacral ulcer HISTORY OF PRESENT ILLNESS: Patient examined this morning at the bedside. She is resting comfortably in bed. Vital signs are stable. She is afebrile. PHYSICAL EXAM: VITAL SIGNS: Reviewed. GENERAL: Well-developed in no acute distress. HEENT: No sclera icterus. Extraocular movements grossly intact. Moist buccal mucosa. Head is atraumatic, normocephalic. ABDOMEN: Soft. Nondistended. Nontender. NEUROLOGIC: Patient lethargic during examination SKIN: Sacral decubitus ulcer noted ASSESSMENT: 1. Stage IV sacral ulcer PLAN: No need for surgical debridement at this time of sacral ulcer. Continue local wound care per infectious disease recommendations We will sign off. Please reconsult if needed. Nurse practitioner note has been reviewed by physician. Signing provider agrees with the documented findings, assessment, and plan of care. Objective - Vital Signs Vital signs: Vital Signs Temp 98.5 F 09/11/19 03:48 Pulse 93 09/11/19 03:48 Resp 18 09/11/19 03:48 BP 132/69 09/11/19 03:48 Pulse Ox 94 L 09/11/19 03:48 Intake & Output 09/10/19 09/11/19 09/11/19 18:59 06:59 18:59 Output Total 900 Balance -900 Weight 66.5 kg 65.5 kg Output: Urine 900 Other: Voiding Method Indwelling Catheter Indwelling Catheter # Voids 1 - Labs CBC & Chem 7: 09/10/19 06:39 09/10/19 06:39 Labs: Abnormal Lab Results - Last 24 Hours (Table) 09/10/19 09/10/19 Range/Units 06:39 06:39 ESR 96 H (0-20) mm/hr C-Reactive Protein 37.3 H (<10.0) mg/L Microbiology - Last 24 Hours (Table) 09/07/19 11:39 Blood Culture - Preliminary Blood No Growth after 72 hours
[2019-09-11] MEDS: CEFEPIME 2 GM in SODIUM CHLORIDE 0.9% 100 ML IVPB SCH (10:48)
[2019-09-11] MEDS: FLUCONAZOLE 100 MG TAB PO SCH (10:49)
[2019-09-11] MEDS: COLLAGENASE 250 UNIT/GM OINTMENT 30 GM TUBE TOPICAL SCH (10:49)
[2019-09-11] MEDS: APIXABAN 5 MG TAB PO SCH (10:49)
--- NOTE | 2019-09-11 13:40 | PN ---
PROGRESS NOTE DATE OF SERVICE: 09/11/2019 REASON FOR FOLLOWUP: 1. Sacral pressure ulcer. 2. Pseudomonas UTI. 3. PICC line infection. INTERVAL HISTORY: The patient is currently afebrile, she is breathing comfortably. No pain to the sacral area. No chest pain, shortness of breath or cough. No abdominal pain and no diarrhea. PHYSICAL EXAMINATION: Blood pressure 132/69 with a pulse of 93, temperature 98.5 she is 94% on room air. General description is an elderly female, lying in bed in no distress. RESPIRATORY SYSTEM: Unlabored breathing, clear to auscultation anteriorly. HEART: S1, S2. Regular rate and rhythm. ABDOMEN: Soft, no tenderness. LABS: No new labs have been obtained today. IMPRESSION/PLAN: 1. Patient with sacral pressure ulcer, stage IV with 6 weeks of IV antibiotic therapy local wound care recommended with Michelle followed by wound VAC, black foam continuous pressure 125 mmHg, change Sunday, Sunday, Sunday. Follow up in the [facility]ound Center next week. 2. Patient with Pseudomonas positive urine culture may be Hemphill colonization. Repeat culture has been negative. Received adequate antibiotic therapy for the same. 3. Positive blood culture with Staph epidermidis. Concern with blood culture showing MRSA, catheter culture showing MRSA. She will continue with IV daptomycin for 2 weeks. Follow up with the Wound Care Center next week. Continue supportive care. MMODL / IJN: [id number] /
--- NOTE | 2019-09-11 14:01 | P.DS ---
Providers Date of admission: 09/05/19 18:43 Expected date of discharge: 09/11/19 Attending physician: Fritz Blair Consults: 09/05/19 17:46 Consult Physician Routine Consulting Provider: Martha Peraza Consult Reason/Comments: sepsis Do you want consulting provider notified?: Yes 09/09/19 10:08 Consult Physician Routine Consulting Provider: Kirt Mclaughlin Consult Reason/Comments: sacral ulcer Do you want consulting provider notified?: Yes Primary care physician: Bean Valenzuela MD Hospital Course: presenting complaint: Infected decubitus ulcer History of presenting complaint: This is a 83-year-old patient of visiting physicians Dr. Valenzuela. Chronic stable medical conditions include primary osteoarthritis, essential hypertension, depression and anxiety,. Patient has an infected decubitus ulcer in the sacral area. admitted in July of this year and the wound was debrided and patient was sent home on IV daptomycin-for 6 weeks. Patient now readmitted with worsening infected sacral decubitus ulcer. Seen by Dr. Mclaughlin. Not felt to be a candidate for any further debridement.seen by infectious disease Dr. Brar. Local wound care center to followed by wound VAC to be done. To be changed Sunday plan stay and Sunday.positive urine with Pseudomonas felt to be from Hemphill colonization.-repeat culture was negative. Antibiotics for same was discontinued.catheter tip did also grow MRSA. Patient gets 2 more weeks ofdaptomycin. Cefepime to be discontinued. I discussed with Dr. peraza today.patient's been eating reasonably well. Otherwise comfortable. Discussion and discharge planning more than 35 minutes Consultation: Dr. Peraza from ID Dr. Mclaughlin from general surgery Physical examination: VITAL SIGNS: 98.5, 93, 18, 132/69, 94% on room air GENERAL: propped up in bed, awake, tired EYES: Pupils equal. Conjunctiva normal. NECK: JVD not raised; masses not palpable. HEART: First and second heart sounds are normal; no edema. LUNGS: Respiratory rate normal; clear to auscultation. ABDOMEN: Soft, nontender, liver spleen not palpable, no masses palpable. PSYCH: Tired MUSCULOSKELETAL: Sacral decubitus ulcer. . NEUROLOGICAL: Cranial nerves grossly intact; no facial asymmetry, contraction of the left arm. Bilateral foot drops INVESTIGATIONS, reviewed in the clinical context: white count 13 hemoglobin 10.8 potassium 4.5 creatinine 0.3 to CRP 37.3 -Culture growing MRSA and staph epidermidis. Repeat urine culture-negative Blood culture growing Staphylococcus epidermidis. Repeat blood culture from September 06 negative Assessment: -acute on chronicInfected sacral decubitus ulcer possibly stage 4-having failed outpatient treatment -Severe cognitive impairment. Late onset Alzheimer's dementia -Chronic medical debility -Chronic contracture of the left forearm -Depression not otherwise specified -Essential hypertension -Reactive thrombocytosis -Normocytic anemia of chronic disease -Prognosis guarded Disposition: [facility] Labs: [id number] Additional instructions: -oldVAC orders as per Dr. Peraza Follow-up with Dr. Peraza at the wound center Patient Condition at Discharge: Undetermined Plan - Discharge Summary Discharge Rx Participant: Yes New Discharge Prescriptions: New DAPTOmycin [Cubicin] 400 mg IVPB Q24H #14 vial Collagenase [Santyl] 1 applic TOPICAL DAILY applic Continue Apixaban [Eliquis] 5 mg PO BID Sertraline [Zoloft] 25 mg PO DAILY Acetaminophen Tab [Tylenol] 650 mg PO Q6H PRN PRN Reason: Pain traMADol-ACETAMINOP 37.5-325MG [Ultracet] 1 tab PO QID PRN #12 tab PRN Reason: Pain Discontinued Fluconazole [Diflucan] 200 mg PO DAILY #42 tab metroNIDAZOLE [Flagyl] 500 mg PO TID #156 tab DAPTOmycin [Cubicin Rf] 400 mg IVPB Q48H Discharge Medication List Apixaban [Eliquis] 5 mg PO BID 07/29/19 [History] Sertraline [Zoloft] 25 mg PO DAILY 07/29/19 [History] Acetaminophen Tab [Tylenol] 650 mg PO Q6H PRN 09/05/19 [History] Collagenase [Santyl] 1 applic TOPICAL DAILY applic 09/11/19 [Rx] DAPTOmycin [Cubicin] 400 mg IVPB Q24H #14 vial 09/11/19 [Rx] traMADol-ACETAMINOP 37.5-325MG [Ultracet] 1 tab PO QID PRN #12 tab 09/11/19 [Rx] Follow up Appointment(s)/Referral(s): Bean Valenzuela MD [Primary Care Provider] - 1-2 days Activity/Diet/Wound Care/Special Instructions: [facility]: #[phone] wound care-- Santyl to the sacral wound with slough , than apply wound vac , black foam , continous pressure of 125mmhg , change Sunday , sunday , sunday follow up with Dr peraza in wound care center , 1 week , call [phone] to make an appointment
[2019-09-11 17:32] VITALS: TEMP 98.1
[2019-09-11 17:36] VITALS: BP 117/60; PULSE 93
== END 2019-09-11 16:45 | DRG 871 ==
LOC: EC 16:38 → 3SCARD 18:43
PROVIDERS: ADMIT Hospitalist; ATTEND Hospitalist
DX: A41.1 Sepsis due to other specified staphylococcus (principal); L89.154 Pressure ulcer of sacral region, stage 4; T83.511A Infection and inflammatory reaction due to indwelling urethral catheter, initial encounter; N39.0 Urinary tract infection, site not specified; T80.219A Unspecified infection due to central venous catheter, initial encounter; E87.2 Acidosis; Y84.8 Other medical procedures as the cause of abnormal reaction of the patient, or of later complication, without mention of misadventure at the time of the procedure; I10 Essential (primary) hypertension; F41.9 Anxiety disorder, unspecified; F32.9 Major depressive disorder, single episode, unspecified; G30.1 Alzheimer's disease with late onset; F02.80 Dementia in other diseases classified elsewhere, unspecified severity, without behavioral disturbance, psychotic disturbance, mood disturbance, and anxiety; B96.5 Pseudomonas (aeruginosa) (mallei) (pseudomallei) as the cause of diseases classified elsewhere; B95.62 Methicillin resistant Staphylococcus aureus infection as the cause of diseases classified elsewhere; M19.91 Primary osteoarthritis, unspecified site; E87.5 Hyperkalemia; Z11.59 Encounter for screening for other viral diseases; D63.8 Anemia in other chronic diseases classified elsewhere; R32 Unspecified urinary incontinence; Z79.01 Long term (current) use of anticoagulants; Z79.899 Other long term (current) drug therapy; Z90.710 Acquired absence of both cervix and uterus; Z90.49 Acquired absence of other specified parts of digestive tract; M62.432 Contracture of muscle, left forearm
CPT/HCPCS: 36410; 36415; 71045; 72220; 76937; 80048; 80053; 81001; 82550; 83605; 84484; 85025; 85027; 85610; 85652; 85730; 86140; 87040; 87070; 87077; 87086; 87186; 87635; 93005; 96365; 96375; 99291

== ENCOUNTER 2020-02-09 14:00 | Inpatient (IN) | payer MEDICARE, OTHER ==
[2020-02-09 15:02] LABS: Anisocytosis Slight; Basophils # (A) 0.1 k/uL (0-0.2); Basophils % (A) 1 %; Eosinophils # (A) 0.3 k/uL (0-0.7); Eosinophils % (A) 3 %; HCT 41.9 % (34.0-46.0); HGB 12.7 gm/dL (11.4-16.0); Hypochromasia Slight; Lymphocytes # (A) 3.5 k/uL (1.0-4.8); Lymphocytes % (A) 27 %; MCH 25.5 pg (25.0-35.0); MCHC 30.4 g/dL (31.0-37.0); MCV 83.8 fL (80.0-100.0); Mean Platelet Volume 7.2; Monocytes # (A) 0.6 k/uL (0-1.0); Monocytes % (A) 5 %; Neutrophils # (A) 8.4 k/uL (1.3-7.7); Neutrophils % (A) 64 %; Platelet Count 429 k/uL (150-450); RDW 16.8 % (11.5-15.5); WBC 13.1 k/uL (3.8-10.6)
[2020-02-09 15:09] LABS: Appearance,Urine Cloudy (Clear); Bacteria,Urine Moderate /hpf; Bilirubin,Urine Negative (Negative); Blood,Urine Small (Negative); Color,Urine Yellow; Glucose,Urine (UA) Negative (Negative); Ketones,Urine Negative (Negative); Leukocyte Esterase,Urine Large (Negative); Mucus,Urine Many /hpf; Nitrite,Urine Positive (Negative); Protein,Urine Trace (Negative); RBC,Urine 22 /hpf (0-5); Squamous Epithelial Cell,Urine 1 /hpf (0-4); Urobilinogen,Urine <2.0 mg/dL (<2.0); WBC,Urine >182 /hpf (0-5)
[2020-02-09 15:10] LABS: ALT 15 U/L (4-34); AST 32 U/L (14-36); African American GFR (CKD) >90 (>60 ml/min/1.73 sqM); Albumin 3.5 g/dL (3.5-5.0); Alkaline Phosphatase 103 U/L (38-126); Anion Gap 6 mmol/L; Blood Urea Nitrogen 12 mg/dL (7-17); Calcium 9.4 mg/dL (8.4-10.2); Carbon Dioxide 30 mmol/L (22-30); Chloride 105 mmol/L (98-107); Glucose 95 mg/dL (74-99); Non-African American GFR(CKD) >90 (>60 ml/min/1.73 sqM); Potassium 4.1 mmol/L (3.5-5.1); Sodium 141 mmol/L (137-145); Total Bilirubin 0.6 mg/dL (0.2-1.3); Total Protein 7.1 g/dL (6.3-8.2)
[2020-02-09] MEDS ORDERED: NALOXONE 0.4 MG/ML 1 ML VIAL IV PRN (16:08)
--- NOTE | 2020-02-09 16:08 | ED ---
Female Urogenital HPI - General Chief complaint: Urogenital Stated complaint: UTI Time Seen by Provider: 02/09/20 14:12 Source: EMS Mode of arrival: EMS Limitations: altered mental status, physical limitation - History of Present Illness Initial comments: Patient is an 84-year-old female, history of dementia, currently at [facility], presenting to the emergency department with complaints of a UTI that has failed outpatient treatment. She did finish a course of Bactrim but is still having UTI symptoms. They did do a urine culture which shows multiple resistance. Patient is not complaining of any pain right now except for some mild low back pain secondary to a decubitus ulcer. She is not having any fevers, vomiting, diarrhea. There is no abdominal pain, shortness of breath. She has no further complaints. Upon arrival to the ER, her vitals are stable. - Related Data Home Medications Medication Instructions Recorded Confirmed Sertraline [Zoloft] 25 mg PO DAILY 07/29/19 02/09/20 Apixaban [Eliquis] 2.5 mg PO DAILY 02/09/20 02/09/20 HYDROcodone/APAP 5-325MG [[place] 1 tab PO Q6H PRN 02/09/20 02/09/20 5-325] Loratadine [Claritin] 10 mg PO DAILY 02/09/20 02/09/20 Allergies Allergy/AdvReac Type Severity Reaction Status Date / Time azithromycin [From Zithromax] Allergy Mild Nausea & Verified 09/05/19 17:35 Vomiting & Diarrhea Iodinated Contrast Media Allergy Mild Unknown Verified 09/05/19 17:35 [Iodinated Contrast Media - IV Dye] Penicillins Allergy Itching Verified 09/05/19 17:35 Review of Systems ROS Statement: Those systems with pertinent positive or pertinent negative responses have been documented in the HPI. ROS Other: All systems not noted in ROS Statement are negative. Past Medical History Past Medical History: CVA/TIA, Hypertension Additional Past Medical History / Comment(s): depression anxiety History of Any Multi-Drug Resistant Organisms: MRSA Date of last positivie culture/infection: 08/01/19 MDRO Source:: SACRAL ULCER MRSA Past Surgical History: Section, Cholecystectomy, Hysterectomy, Tonsillectomy Additional Past Surgical History / Comment(s): eye Past Psychological History: Anxiety, Depression Smoking Status: Unknown if ever smoked Past Alcohol Use History: None Reported Past Drug Use History: None Reported - Past Family History Father History Unknown: Yes General Exam - General Exam Comments Initial Comments: GENERAL: Patient is well-developed and well-nourished. Patient is nontoxic and in no acute distress. HEAD: Atraumatic, normocephalic. EYES: Pupils equal round and reactive to light, extraocular movements intact, sclera anicteric, conjunctiva are normal. Eyelids were unremarkable. ENT: TMs normal, nares patent, oropharynx clear without exudates. Moist mucous membranes. NECK: Normal range of motion, supple without lymphadenopathy or JVD. LUNGS: Unlabored respirations. Breath sounds clear to auscultation bilaterally and equal. No wheezes rales or rhonchi. HEART: Regular rate and rhythm without murmurs, rubs or gallops. ABDOMEN: Soft, nontender, normoactive bowel sounds. No guarding, no rebound. No masses appreciated. : Deferred MUSCULOSKELETAL: Normal extremities with adequate strength and normal range of motion, no pitting or edema. No clubbing or cyanosis. NEUROLOGICAL: Patient is alert and oriented x 3. Motor and sensory are also intact. Cranial nerves II through XII grossly intact. Symmetrical smile. Normal speech, normal gait. PSYCH: Normal mood, normal affect. SKIN: Warm, Dry, normal turgor, no rashes. Decubitus ulcer present, wound vac recently removed. Limitations: altered mental status, physical limitation Course Vital Signs 02/09/20 14:05 Temperature 98.1 F Pulse Rate 77 Respiratory 18 Rate Blood Pressure 154/86 O2 Sat by Pulse 97 Oximetry Medical Decision Making - Medical Decision Making She is a 4-year-old female sent in by [facility] for filed L patient UTI. The limit dairy urine culture showing many resistance. Her labs are stable. Her urine is still showing positive nitrates, stiff UTI. We will reculture the urine. Patient will be started on tobramycin, pending final guarding culture results. I did speak to patient's a daughter who is agreement with this plan of care. Patient was accepted by Dr. Garcia. Case discussed with Dr. Yanez. - Lab Data Result diagrams: 02/09/20 14:45 02/09/20 14:45 Lab Results 02/09/20 02/09/20 02/09/20 Range/Units 14:45 14:45 14:45 WBC 13.1 H (3.8-10.6) k/uL RBC 5.00 (3.80-5.40) m/uL Hgb 12.7 (11.4-16.0) gm/dL Hct 41.9 (34.0-46.0) % MCV 83.8 (80.0-100.0) fL MCH 25.5 (25.0-35.0) pg MCHC 30.4 L (31.0-37.0) g/dL RDW 16.8 H (11.5-15.5) % Plt Count 429 (150-450) k/uL Neutrophils % 64 % Lymphocytes % 27 % Monocytes % 5 % Eosinophils % 3 % Basophils % 1 % Neutrophils # 8.4 H (1.3-7.7) k/uL Lymphocytes # 3.5 (1.0-4.8) k/uL Monocytes # 0.6 (0-1.0) k/uL Eosinophils # 0.3 (0-0.7) k/uL Basophils # 0.1 (0-0.2) k/uL Hypochromasia Slight Anisocytosis Slight Sodium 141 (137-145) mmol/L Potassium 4.1 (3.5-5.1) mmol/L Chloride 105 (98-107) mmol/L Carbon Dioxide 30 (22-30) mmol/L Anion Gap 6 mmol/L BUN 12 (7-17) mg/dL Creatinine 0.30 L (0.52-1.04) mg/dL Est GFR (CKD-EPI)AfAm >90 (>60 ml/min/1.73 sqM) Est GFR (CKD-EPI)NonAf >90 (>60 ml/min/1.73 sqM) Glucose 95 (74-99) mg/dL Calcium 9.4 (8.4-10.2) mg/dL Total Bilirubin 0.6 (0.2-1.3) mg/dL AST 32 (14-36) U/L ALT 15 (4-34) U/L Alkaline Phosphatase 103 (38-126) U/L Total Protein 7.1 (6.3-8.2) g/dL Albumin 3.5 (3.5-5.0) g/dL Urine Color Yellow Urine Appearance Cloudy H (Clear) Urine pH 6.0 (5.0-8.0) Ur Specific Prue 1.020 (1.001-1.035) Urine Protein Trace H (Negative) Urine Glucose (UA) Negative (Negative) Urine Ketones Negative (Negative) Urine Blood Small H (Negative) Urine Nitrite Positive H (Negative) Urine Bilirubin Negative (Negative) Urine Urobilinogen <2.0 (<2.0) mg/dL Ur Leukocyte Esterase Large H (Negative) Urine RBC 22 H (0-5) /hpf Urine WBC >182 H (0-5) /hpf Ur Squamous Epith Cells 1 (0-4) /hpf Urine Bacteria Moderate H (None) /hpf Urine Mucus Many H (None) /hpf Disposition Clinical Impression: UTI (urinary tract infection), bacterial, Failure of outpatient treatment Disposition: ADMITTED IP TO [facility] Condition: Fair Referrals: Bean Valenzuela MD [Primary Care Provider] - 1-2 days Decision Date: 02/09/20 Decision Time: 16:08
[2020-02-09] MEDS ORDERED: TOBRAMYCIN PER PHARMACY MISCELLANE SCH (16:15)
[2020-02-09] MEDS ORDERED: TOBRAMYCIN SULFATE IVPB ONE (17:00)
[2020-02-09] MEDS ORDERED: SODIUM CHLORIDE 0.9% IVPB ONE (17:00)
[2020-02-09] MEDS ORDERED: ALPRAZolam 0.25 MG TAB PO PRN (17:03)
[2020-02-09] MEDS ORDERED: ONDANSETRON 4 MG/2 ML VIAL IVP PRN (17:03)
[2020-02-09] MEDS ORDERED: ACETAMINOPHEN TAB 325 MG TAB PO PRN (17:03)
[2020-02-09] MEDS ORDERED: VANCOMYCIN IV PER PHARMACY 1 EACH MISC MISCELLANE PRN (17:04)
--- NOTE | 2020-02-09 17:11 | P.HPIM ---
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 Patient had already been treated with Bactrim. On arrival to the ER her vital signs were within normal limits. Laboratory analysis showed white blood cell count 13.1. Urinalysis showed greater than 182 white blood cells was positive for nitrate and leukocyte esterase. Patient recently underwent an outpatient urine culture which demonstrated Pseudomonas aeruginosa and staph aureus. Pseudomonas is sensitive only to gentamicin and overall, staph sensitivities are currently pending. She was started on IV fluids and arrangements are made for admission for urinary tract infection failed outpatient antibiotics complicated by chronic indwelling Soliz. ER staff had contacted her daughter who stated that hospice had wanted admission for urinary tract infection requiring IV antibiotics. Patient seen and examined at bedside. She complains of buttock and back pain. She denies any chest pain, shortness breath, nausea, vomiting, abdominal pain, or diarrhea. She has a chronic left-sided hemiparesis. She has no other complaints currently. Patient is alert and oriented to self, she believes it is 2016 and that the month is June. She believes she has been eating and drinking well and thinks she has not been refusing any food. Thorough recod review preformed from recent hospital stay 09/05-09/11/2019. Review of Systems Pertinent positives and negatives as discussed in HPI, a complete review of systems was performed and all other systems are negative., However review of systems may be an accurate with patient's known history of dementia. Past Medical History Past Medical History: CVA/TIA, Hypertension Additional Past Medical History / Comment(s): depression anxiety, dementia, stage IV coccyx wound, chronic soliz History of Any Multi-Drug Resistant Organisms: MRSA Date of last positivie culture/infection: 08/01/19 MDRO Source:: SACRAL ULCER MRSA Past Surgical History: Section, Cholecystectomy, Hysterectomy, Tonsillectomy Additional Past Surgical History / Comment(s): eye Past Psychological History: Anxiety, Depression Smoking Status: Unknown if ever smoked Past Alcohol Use History: None Reported Past Drug Use History: None Reported - Past Family History Father History Unknown: Yes Medications and Allergies Home Medications Medication Instructions Recorded Confirmed Type Sertraline [Zoloft] 25 mg PO DAILY 07/29/19 02/09/20 History Apixaban [Eliquis] 2.5 mg PO DAILY 02/09/20 02/09/20 History HYDROcodone/APAP 5-325MG [[place] 1 tab PO Q6H PRN 02/09/20 02/09/20 History 5-325] Loratadine [Claritin] 10 mg PO DAILY 02/09/20 02/09/20 History Allergies Allergy/AdvReac Type Severity Reaction Status Date / Time azithromycin [From Zithromax] Allergy Mild Nausea & Verified 09/05/19 17:35 Vomiting & Diarrhea Iodinated Contrast Media Allergy Mild Unknown Verified 09/05/19 17:35 [Iodinated Contrast Media - IV Dye] Penicillins Allergy Itching Verified 09/05/19 17:35 Physical Exam Osteopathic Statement: *. No significant issues noted on an osteopathic structural exam other than those noted in the History and Physical/Consult. Vitals: Vital Signs Temp Pulse Resp BP Pulse Ox 02/09/20 14:05 98.1 F 77 18 154/86 97 Intake and Output 02/09/20 02/09/20 02/09/20 06:59 14:59 22:59 Other: Weight 63.503 kg - Constitutional General appearance: cooperative, no acute distress, thin - EENT Eyes: no abnormal pupil, anicteric sclerae, EOMI, PERRLA, poor dentition ENT: hearing grossly normal, NA/AT, no pharyngeal erythema, no thrush - Neck Neck: no lymphadenopathy, no thyromegaly Carotids: bilateral: bruit absent Thyroid: bilateral: normal size - Respiratory Respiratory: bilateral: diminished, negative: rhonchi, wheezing, prolonged expiration, prolonged inspiration - Cardiovascular Rhythm: regular Heart sounds: normal: S1, S2 Abnormal Heart Sounds: systolic murmur ankle Peripheral Edema: absent: None dorsalis pedis Peripheral Pulses: bilateral: Normal - Gastrointestinal General gastrointestinal: decreased bowel sounds, no distended, no hepatomegaly, no tenderness - Genitourinary Soliz in place, purulent urine - Neurologic Left upper extremity with flexion contracture of all fingers and elbow, Flexion contracture at left hip and knee, right finger to nose intact, no tremors Muscle strength 3 out of 5 in right lower extremity and 4 out of 5 in right upper extremity Neurologic: CNII-XII intact - Musculoskeletal Gross generalized muscle atrophy, contractures as listed above, temporal wasting - Psychiatric Poor judgment and insight, alert and oriented to self only, flat affect Results CBC & Chem 7: 02/09/20 14:45 02/09/20 14:45 Labs: Abnormal Lab Results - Last 24 Hours (Table) 02/09/20 02/09/20 02/09/20 Range/Units 14:45 14:45 14:45 WBC 13.1 H (3.8-10.6) k/uL MCHC 30.4 L (31.0-37.0) g/dL RDW 16.8 H (11.5-15.5) % Neutrophils # 8.4 H (1.3-7.7) k/uL Creatinine 0.30 L (0.52-1.04) mg/dL Urine Appearance Cloudy H (Clear) Urine Protein Trace H (Negative) Urine Blood Small H (Negative) Urine Nitrite Positive H (Negative) Ur Leukocyte Esterase Large H (Negative) Urine RBC 22 H (0-5) /hpf Urine WBC >182 H (0-5) /hpf Urine Bacteria Moderate H (None) /hpf Urine Mucus Many H (None) /hpf Assessment and Plan Assessment: Urinary tract infection, failed outpatient treatment -Initiate gentamicin secondary to Pseudomonas infection, Staph on Urine as well, patient with recent MRSA infection and will start vanco -Change Soliz catheter and obtain new UA and culture -Repeat CBC in a.m. Stage IV sacral decub, now with healing -Consult wound care -Tissue appears granular and well vascularized -Appropriate wound care bed -Can turn every 2 hours and offload pressure Left-sided hemiplegia secondary to prior CVA -Supportive care -Assist feeding Dementia -Frequently orientation -Safe and supportive environment Patient was on hospice prior to admission. In a.m. will ask case management/social work to notify hospice of admission and pending discharge planning. The patient is admitted with an anticipated greater than 2 midnight stay for evaluation of UTI failed outpatient treatment. Surrogate decision-maker: Daughter CODE STATUS:Full DVT prophylaxis: Eliquis Discussed with: patient, nursing, ED provider Anticipated discharge date: 2-[address]: return to hospice A total of 65 minutes was spent on the care of this complex patient more than 50% of the time was spent in counseling and care coordination.
[2020-02-09] MEDS ORDERED: VANCOMYCIN 1,250 MG in SODIUM CHLORIDE 0.9% 250 ML IVPB ONE (17:45)
[2020-02-09] MEDS: SODIUM CHLORIDE 0.9% 1,000 ML IV SCH (21:16)
[2020-02-09 23:08] LABS: Appearance,Urine Cloudy (Clear); Bacteria,Urine Many /hpf; Bilirubin,Urine Negative (Negative); Blood,Urine Moderate (Negative); Color,Urine Yellow; Glucose,Urine (UA) Negative (Negative); Ketones,Urine Negative (Negative); Leukocyte Esterase,Urine Large (Negative); Mucus,Urine Rare /hpf; Nitrite,Urine Positive (Negative); Protein,Urine 2+ (Negative); RBC,Urine 163 /hpf (0-5); Specific Gravity,Urine 1.019 (1.001-1.035); Squamous Epithelial Cell,Urine 1 /hpf (0-4); Urobilinogen,Urine <2.0 mg/dL (<2.0); WBC,Urine >182 /hpf (0-5)
[2020-02-10] MEDS: HYDROcodone/APAP 5-325MG 1 EACH TAB PO PRN (02:11)
[2020-02-10] MEDS: SODIUM CHLORIDE 0.9% IVPB SCH ×2 (05:54→17:41)
[2020-02-10] MEDS: TOBRAMYCIN SULFATE IVPB SCH ×2 (05:54→17:41)
[2020-02-10 06:55] LABS: Anisocytosis Slight; HCT 39.2 % (34.0-46.0); HGB 11.7 gm/dL (11.4-16.0); Hypochromasia Marked; MCH 25.8 pg (25.0-35.0); MCHC 29.8 g/dL (31.0-37.0); MCV 86.8 fL (80.0-100.0); Mean Platelet Volume 7.5; Platelet Count 390 k/uL (150-450); RBC 4.52 m/uL (3.80-5.40); RDW 16.8 % (11.5-15.5); WBC 10.6 k/uL (3.8-10.6)
[2020-02-10] MEDS: SERTRALINE 25 MG TAB PO SCH (07:52)
[2020-02-10] MEDS: APIXABAN 2.5 MG TABLET PO SCH (07:53)
[2020-02-10] MEDS: LORATADINE 10 MG TAB PO SCH (07:53)
--- NOTE | 2020-02-10 08:07 | CDI ---
Documentation Clarification Form Date: 02/10/2020 07:52:08 AM From: Vicky Borges RN, CCDS Admit Date: 02/09/2020 05:03:00 PM Patient Name: Yuly Laguna Visit Number: [id number] ATTENTION: The Clinical Documentation Specialists (CDI) and [facility] Coding Staff appreciate your assistance in clarifying documentation. Please respond to the clarification below the line at the bottom and electronically sign. The CDI & [facility] Coding staff will review the response and follow-up if needed. Please note: Queries are made part of the Legal Health Record. If you have any questions, please contact the author of this message via ITS. Dr. Geraldine Fraser A diagnosis of UTI has been documented in the EC and H&P in a patient with a chronic soliz catheter. History/Risk Factors: Chronic IDC, dementia, left hemiplegia, dementia, CVA, HTN Clinical Indicators: 02/08 H&P: Urinary tract infection, failed outpatient treatment -Initiate gentamicin secondary to Pseudomonas infection, Staph on Urine as well, Patient with recent MRSA infection and will start Vanco -Change Soliz catheter and obtain new UA and culture -Repeat CBC in a.m. Stage IV sacral decub, now with healing 02/08 & 02/09 Urinalysis: positive x 2 02/08 Urine culture: pending at this time, positive previously for Pseudomonas and staph per MD documentation Lab results: WBC 13.1/10.6 Treatment: PTD IV Tobramycin- currently 90 mg IVPB Q 12 hrs. 02/08 1250mg Vanco IVPB x 1 dose then q 16 hrs. In your professional opinion, can you please clarify the etiology of the UTI, if known? Soliz catheter related UTI UTI not related to catheter Other condition, please specify Unable to determine If an infective organism is present, please specify cause and effect relationship if applicable. (Last Revision: July 2017) Soliz catheter related UTI, Present on admission MTDD
[2020-02-10 09:21] LABS: African American GFR (CKD) 137.3 (60.0-200.0); Anion Gap 6.2 mmol/L (4.00-12.00); Calcium 8.7 mg/dL (8.7-10.3); Carbon Dioxide 24.8 mmol/L (21.6-31.8); Magnesium 1.7 mg/dL (1.5-2.4); Non-African American GFR(CKD) 118.5 (60.0-200.0); Potassium 3.6 mmol/L (3.5-5.5)
[2020-02-10] MEDS: VANCOMYCIN 1,250 MG in SODIUM CHLORIDE 0.9% 250 ML IVPB SCH (11:40)
[2020-02-10 13:42] VITALS: BMI 23.3
--- NOTE | 2020-02-10 14:40 | P.CONS ---
History of Present Illness - Reason for Consult Consult date: 02/10/20 Wound care - History of Present Illness This is an 84-year-old patient's HEENT seen by the wound care center on [address]. for nonhealing ulceration to the coccyx. Patient is currently in hospice and was sent to the emergency room for evaluation of a urinary tract infection. Patient was unsure of what has been utilized on her ulceration she states that it has been there for quite some time. Review of Systems Review Of Systems: Constitutional: No fever, no chills, no night sweats. No weight change. No weakness, fatigue or lethargy. No daytime sleepiness. Integumentary:reports wounds, no lesions. No rash or pruritus. No unusual bruising. No change in hair or nails. Past Medical History Past Medical History: CVA/TIA, Hypertension Additional Past Medical History / Comment(s): depression anxiety, dementia, stage IV coccyx wound, chronic soliz History of Any Multi-Drug Resistant Organisms: MRSA Year Discovered:: 08/01/19 MDRO Source:: SACRAL ULCER MRSA Past Surgical History: Section, Cholecystectomy, Hysterectomy, Tonsillectomy Additional Past Surgical History / Comment(s): eye Past Psychological History: Anxiety, Depression Smoking Status: Unknown if ever smoked Past Alcohol Use History: None Reported Past Drug Use History: None Reported - Past Family History Father History Unknown: Yes Medications and Allergies Home Medications Medication Instructions Recorded Confirmed Type Sertraline [Zoloft] 25 mg PO DAILY 07/29/19 02/09/20 History Apixaban [Eliquis] 2.5 mg PO DAILY 02/09/20 02/09/20 History HYDROcodone/APAP 5-325MG [[place] 1 tab PO Q6H PRN 02/09/20 02/09/20 History 5-325] Loratadine [Claritin] 10 mg PO DAILY 02/09/20 02/09/20 History Allergies Allergy/AdvReac Type Severity Reaction Status Date / Time azithromycin [From Zithromax] Allergy Mild Nausea & Verified 09/05/19 17:35 Vomiting & Diarrhea Iodinated Contrast Media Allergy Mild Unknown Verified 09/05/19 17:35 [Iodinated Contrast Media - IV Dye] Penicillins Allergy Itching Verified 09/05/19 17:35 Physical Exam Vitals: Vital Signs Temp Pulse Pulse Resp BP BP Pulse Ox 02/10/20 07:53 70 16 02/10/20 07:00 98.0 F 70 16 155/73 97 02/10/20 01:30 98.6 F 80 148/80 98 02/09/20 19:00 98.1 F 85 18 171/89 96 02/09/20 17:50 98.1 F 80 18 177/90 96 02/09/20 16:56 81 17 139/75 98 Intake and Output 02/09/20 02/10/20 02/10/20 22:59 06:59 14:59 Intake Total 250 400 730 Output Total 200 Balance 250 200 730 Intake: Intake, IV Titration 730 Amount Sodium Chloride 0.9% 1, 480 000 ml @ 120 mls/hr IV . [facility]H20[facility] Rx#:[id number] Vancomycin 1,250 mg In 250 Sodium Chloride 0.9% 250 ml @ 125 mls/hr IVPB ONCE ONE Rx#:[id number] Oral 250 400 Output: Urine 200 Other: Weight 63.503 kg 63.503 kg Physical exam: General Appearance: Alert, cooperative, no distress, appears stated age. Skin: Full-thickness stage III [place] ulcer coccyx. Patient has most of all that without necrosis. There is granulation seen throughout the wound bed with minimal slough. Wound edges attached to wound base. Periwound shows some excoriation. all other Skin color, texture, tugor decrease, no rashes or lesions. Neurologic: Alert oriented x3 Results CBC & Chem 7: 02/10/20 06:17 02/10/20 06:17 Labs: Abnormal Lab Results - Last 24 Hours (Table) 02/09/20 02/09/20 02/09/20 Range/Units 14:45 14:45 14:45 WBC 13.1 H (3.8-10.6) k/uL MCHC 30.4 L (31.0-37.0) g/dL RDW 16.8 H (11.5-15.5) % Neutrophils # 8.4 H (1.3-7.7) k/uL Creatinine 0.30 L (0.52-1.04) mg/dL BUN/Creatinine Ratio (12.00-20.00) Ratio Urine Appearance Cloudy H (Clear) Urine Protein Trace H (Negative) Urine Blood Small H (Negative) Urine Nitrite Positive H (Negative) Ur Leukocyte Esterase Large H (Negative) Urine RBC 22 H (0-5) /hpf Urine WBC >182 H (0-5) /hpf Urine WBC Clumps (None) /hpf Urine Bacteria Moderate H (None) /hpf Urine Mucus Many H (None) /hpf 02/09/20 02/10/20 02/10/20 Range/Units 21:19 06:17 06:17 WBC (3.8-10.6) k/uL MCHC 29.8 L (31.0-37.0) g/dL RDW 16.8 H (11.5-15.5) % Neutrophils # (1.3-7.7) k/uL Creatinine 0.2 L (0.52-1.04) mg/dL BUN/Creatinine Ratio 45.00 H (12.00-20.00) Ratio Urine Appearance Cloudy H (Clear) Urine Protein 2+ H (Negative) Urine Blood Moderate H (Negative) Urine Nitrite Positive H (Negative) Ur Leukocyte Esterase Large H (Negative) Urine RBC 163 H (0-5) /hpf Urine WBC >182 H (0-5) /hpf Urine WBC Clumps Few H (None) /hpf Urine Bacteria Many H (None) /hpf Urine Mucus Rare H (None) /hpf Microbiology - Last 24 Hours (Table) 02/10/20 02:15 Wound Culture - Preliminary Other - Other 02/09/20 14:45 Urine Culture - Preliminary Urine,Voided Assessment and Plan (1) Pressure ulcer of coccygeal region, stage 3 Current Visit: Yes Status: Acute Code(s): L89.153 - PRESSURE ULCER OF SACRAL REGION, STAGE 3 SNOMED Code(s): 754131903 Plan: Apply collagen, saline moistened gauze, border foam. Change Sunday. Patient may continue with the dressings in an outpatient setting. Thank you kindly for the consultation any questions please contact the wound care center DNP note has been reviewed and discussed with Dr. Vasquez and the impression and plan of care has been directed as dictated.
--- NOTE | 2020-02-10 14:45 | P.PN ---
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 Patient had already been treated with Bactrim. On arrival to the ER her vital signs were within normal limits. Laboratory analysis showed white blood cell count 13.1. Urinalysis showed greater than 182 white blood cells was positive for nitrate and leukocyte esterase. Patient recently underwent an outpatient urine culture which demonstrated Pseudomonas aeruginosa and staph aureus. Pseudomonas is sensitive only to gentamicin/tobramycin and overall, staph sensitivities pending at the time of admission. She was started on IV fluids and arrangements are made for admission for urinary tract infection failed outpatient antibiotics complicated by chronic indwelling Soliz. Patient seen and examined at bedside. She denies any pain. No shortness of breath, nausea, or vomiting. Wants to be able to get up and walk again and is frustrated with being bedbound. Objective - Vital Signs Vital signs: Vital Signs Temp 98.0 F 02/10/20 07:00 Pulse 70 02/10/20 07:53 Resp 16 02/10/20 07:53 BP 155/73 02/10/20 07:00 Pulse Ox 97 02/10/20 07:00 Intake & Output 02/09/20 02/10/20 02/10/20 18:59 06:59 18:59 Intake Total 650 730 Output Total 200 Balance 450 730 Weight 63.503 kg 63.503 kg 63.503 kg Intake: Intake, IV Titration 730 Amount Sodium Chloride 0.9% 1, 480 000 ml @ 120 mls/hr IV . Q8H20M [facility] Rx#:[id number] Vancomycin 1,250 mg In 250 Sodium Chloride 0.9% 250 ml @ 125 mls/hr IVPB ONCE ONE Rx#:[id number] Oral 650 Output: Urine 200 - Exam General: ill appearing, frail, temporal wasting, no distress, appears at stated age Derm: warm, dry Head: atraumatic, normocephalic, symmetric Eyes: EOMI, no lid lag, anicteric sclera Mouth: no lip lesion, mucus membranes dry Cardiovascular: S1S2 reg, no murmur, positive posterior tibial pulse bilateral, Lungs: Decreased bs bilateral, no rhonchi, no rales , no accessory muscle use Abdominal: soft, nontender to palpation, no guarding, no appreciable organomegaly Ext: + gross muscle atrophy, no edema, flexion contracture of left upper extremity and lower extremity Neuro: CN II-XI grossly intact Psych: Alert, oriented to self and hospital, appropriate affect - Labs CBC & Chem 7: 02/10/20 06:17 02/10/20 06:17 Labs: Abnormal Lab Results - Last 24 Hours (Table) 02/09/20 02/09/20 02/09/20 Range/Units 14:45 14:45 14:45 WBC 13.1 H (3.8-10.6) k/uL MCHC 30.4 L (31.0-37.0) g/dL RDW 16.8 H (11.5-15.5) % Neutrophils # 8.4 H (1.3-7.7) k/uL Creatinine 0.30 L (0.52-1.04) mg/dL BUN/Creatinine Ratio (12.00-20.00) Ratio Urine Appearance Cloudy H (Clear) Urine Protein Trace H (Negative) Urine Blood Small H (Negative) Urine Nitrite Positive H (Negative) Ur Leukocyte Esterase Large H (Negative) Urine RBC 22 H (0-5) /hpf Urine WBC >182 H (0-5) /hpf Urine WBC Clumps (None) /hpf Urine Bacteria Moderate H (None) /hpf Urine Mucus Many H (None) /hpf 02/09/20 02/10/20 02/10/20 Range/Units 21:19 06:17 06:17 WBC (3.8-10.6) k/uL MCHC 29.8 L (31.0-37.0) g/dL RDW 16.8 H (11.5-15.5) % Neutrophils # (1.3-7.7) k/uL Creatinine 0.2 L (0.52-1.04) mg/dL BUN/Creatinine Ratio 45.00 H (12.00-20.00) Ratio Urine Appearance Cloudy H (Clear) Urine Protein 2+ H (Negative) Urine Blood Moderate H (Negative) Urine Nitrite Positive H (Negative) Ur Leukocyte Esterase Large H (Negative) Urine RBC 163 H (0-5) /hpf Urine WBC >182 H (0-5) /hpf Urine WBC Clumps Few H (None) /hpf Urine Bacteria Many H (None) /hpf Urine Mucus Rare H (None) /hpf Microbiology - Last 24 Hours (Table) 02/10/20 02:15 Wound Culture - Preliminary Other - Other 02/09/20 14:45 Urine Culture - Preliminary Urine,Voided Assessment and Plan Assessment: Urinary tract infection, failed outpatient treatment, related to chronic soliz, Present on admission. -Initiate gentamicin secondary to Pseudomonas infection, Staph on Urine as well, patient with recent MRSA infection vanco, await final MICs -await repeat UA -Repeat CBC in a.m. -D/W hospice and they can accommodate patient for IV antibiotics at home and will be prepared. Stage IV sacral decub, now with healing -Wound care recs -Can turn every 2 hours and offload pressure Left-sided hemiplegia secondary to prior CVA -Supportive care -Assist feeding Dementia -Frequently orientation -Safe and supportive environment DVT prophylaxis: Charlie Discussed with: patient, nursing, hospice, daughter updated over phone. Anticipated discharge date: in AM Anticipated discharge place: return to hospice A total of 35 minutes was spent on the care of this complex patient more than 50% of the time was spent in counseling and care coordination.
[2020-02-10] MEDS: SODIUM CHLORIDE 0.9% 1,000 ML IV SCH ×2 (19:02→19:03)
[2020-02-11] MEDS: SODIUM CHLORIDE 0.9% 1,000 ML IV SCH ×3 (01:15→19:06)
[2020-02-11] MEDS: VANCOMYCIN 1,250 MG in SODIUM CHLORIDE 0.9% 250 ML IVPB SCH ×2 (03:12→20:49)
[2020-02-11] MEDS ORDERED: TOBRAMYCIN TROUGH DUE 1 EACH MISC MISCELLANE ONE (05:00)
[2020-02-11 05:50] LABS: Anisocytosis Slight; HCT 38.8 % (34.0-46.0); HGB 11.9 gm/dL (11.4-16.0); Hypochromasia Slight; MCH 25.7 pg (25.0-35.0); MCHC 30.7 g/dL (31.0-37.0); MCV 83.8 fL (80.0-100.0); Mean Platelet Volume 7.7; Platelet Count 428 k/uL (150-450); RBC 4.62 m/uL (3.80-5.40); RDW 16.6 % (11.5-15.5)
[2020-02-11] MEDS: SODIUM CHLORIDE 0.9% IVPB SCH (06:17)
[2020-02-11] MEDS: TOBRAMYCIN SULFATE IVPB SCH (06:17)
[2020-02-11] MEDS ORDERED: TOBRAMYCIN PEAK DUE 1 EACH MISC MISCELLANE ONE (07:30)
[2020-02-11] MEDS: LORATADINE 10 MG TAB PO SCH (09:39)
[2020-02-11] MEDS: APIXABAN 2.5 MG TABLET PO SCH (09:39)
[2020-02-11] MEDS: SERTRALINE 25 MG TAB PO SCH (09:40)
[2020-02-11 09:46] LABS: African American GFR (CKD) 120.2 (60.0-200.0); Anion Gap 7.9 mmol/L (4.00-12.00); BUN/Creat Ratio 16.67 Ratio (12.00-20.00); Calcium 8.8 mg/dL (8.7-10.3); Carbon Dioxide 25.1 mmol/L (21.6-31.8); Non-African American GFR(CKD) 103.7 (60.0-200.0); Potassium 3.5 mmol/L (3.5-5.5)
[2020-02-11] MEDS ORDERED: GENTAMICIN PER PHARMACY MISCELLANE SCH (12:00)
--- NOTE | 2020-02-11 15:40 | P.PN ---
Subjective Progress Note Date: 02/11/20 (delayed cahrting seen at 0915) Principal diagnosis: UTI Patient is an 84 yo CF with a hx of Dementia, Stage IV scaral ulcer (recently taken off wound vac), Chronic indwelling Soliz, and left-sided hemiplegia secondary to prior CVA who was to the emergency department by [facility] for urinary tract infection resistant to oral antibiotics. Patient had already been treated with Bactrim. On arrival to the ER her vital signs were within normal limits. Laboratory analysis showed white blood cell count 13.1. Urinalysis showed greater than 182 white blood cells was positive for nitrate and leukocyte esterase. Patient recently underwent an outpatient urine culture which demonstrated Pseudomonas aeruginosa and staph aureus. Pseudomonas is sensitive only to gentamicin/tobramycin and overall, staph sensitivities pending at the time of admission. She was started on IV fluids and arrangements are made for admission for urinary tract infection failed outpatient antibiotics complicated by chronic indwelling Soliz. She was found to have a pseudomonas and MRSA UTI. Her soliz cath was changed. Both infections are sensitive to Gent. Patient had midline placed on 02/10 Patient seen and examined at bedside. Wants to go home. No pain, shortness of breath, nausea, chest pain. Objective - Vital Signs Vital signs: Vital Signs Temp 98.4 F 02/11/20 15:00 Pulse 81 02/11/20 15:00 Resp 18 02/11/20 15:00 BP 151/76 02/11/20 15:00 Pulse Ox 96 02/11/20 15:00 Intake & Output 02/10/20 02/11/20 02/11/20 18:59 06:59 18:59 Intake Total 730 250 Output Total 1600 Balance 730 -1350 Weight 63.503 kg Intake: Intake, IV Titration 730 Amount Sodium Chloride 0.9% 1, 480 000 ml @ 120 mls/hr IV . Q8H20M [facility] Rx#:[id number] Vancomycin 1,250 mg In 250 Sodium Chloride 0.9% 250 ml @ 125 mls/hr IVPB ONCE ONE Rx#:[id number] Oral 250 Output: Urine 1600 - Exam General: ill appearing, frail, temporal wasting, no distress, appears at stated age Derm: warm, dry Head: atraumatic, normocephalic, symmetric Eyes: EOMI, no lid lag, anicteric sclera Mouth: no lip lesion, mucus membranes moist Cardiovascular: S1S2 reg, no murmur, positive posterior tibial pulse bilateral, Lungs: Decreased bs bilateral, no rhonchi, no rales , no accessory muscle use Abdominal: soft, nontender to palpation, no guarding, no appreciable organomegaly Ext: + gross muscle atrophy, no edema, flexion contracture of left upper extremity and lower extremity Neuro: CN II-XI grossly intact Psych: Alert, oriented to self and hospital, appropriate affect - Labs CBC & Chem 7: 02/11/20 05:20 02/11/20 05:20 Labs: Abnormal Lab Results - Last 24 Hours (Table) 02/11/20 02/11/20 02/11/20 Range/Units 05:20 05:20 07:25 WBC 11.0 H (3.8-10.6) k/uL MCHC 30.7 L (31.0-37.0) g/dL RDW 16.6 H (11.5-15.5) % BUN 5.0 L (9.0-27.0) mg/dL Creatinine 0.3 L (0.6-1.5) mg/dL Tobramycin Peak 1.5 L (5.0-10.0) ug/mL Microbiology - Last 24 Hours (Table) 02/10/20 02:15 Gram Stain - Preliminary Other - Other Wound Culture - Preliminary 02/09/20 14:45 Urine Culture - Preliminary Urine,Voided Gram Neg Bacilli Presumptive Staph aureus Assessment and Plan Assessment: Urinary tract infection, failed outpatient treatment, related to chronic soliz, Present on admission. -Gent X 14 days, both pseudomonas and MRSA sensitive. Will complete 14 days. Midline ordered and placed 02/10. - Change soliz once ABX appreciated. -Repeat CBC, BMP in AM -D/W hospice and they can accommodate patient for IV antibiotics at home and will be prepared will need updated ABX prescription for 100 mg q12 hours. - Low tobra peak. Hold overnight and transition to Gent repeat trough and peak. D/W pharmacy and will need repeat through/peak in 3 days. Stage IV sacral decub, now with healing and stage III, POA -Wound care recs -Can turn every 2 hours and offload pressure Left-sided hemiplegia secondary to prior CVA -Supportive care -Assist feeding Dementia -Frequently orientation -Safe and supportive environment DVT prophylaxis: Charlie Discussed with: patient, nursing, CM, pharmacy Anticipated discharge date: in AM Anticipated discharge place: return to hospice A total of 35 minutes was spent on the care of this complex patient more than 50% of the time was spent in counseling and care coordination.
[2020-02-11] MEDS: GENTAMICIN 100 MG in SODIUM CHLORIDE 0.9% 100 ML IVPB SCH (17:47)
[2020-02-11] MEDS ORDERED: GENTAMICIN 100 MG in SODIUM CHLORIDE 0.9% 100 ML IVPB SCH (18:00)
[2020-02-12] MEDS: SODIUM CHLORIDE 0.9% 1,000 ML IV SCH ×3 (04:00→17:23)
[2020-02-12] MEDS: GENTAMICIN 100 MG in SODIUM CHLORIDE 0.9% 100 ML IVPB SCH ×2 (05:42→17:21)
[2020-02-12 06:37] LABS: Anisocytosis Slight; HCT 36.5 % (34.0-46.0); HGB 11.1 gm/dL (11.4-16.0); Hypochromasia Moderate; MCH 25.9 pg (25.0-35.0); MCHC 30.4 g/dL (31.0-37.0); MCV 85.2 fL (80.0-100.0); Mean Platelet Volume 7.9; Platelet Count 393 k/uL (150-450); RBC 4.29 m/uL (3.80-5.40); RDW 16.7 % (11.5-15.5); WBC 10.9 k/uL (3.8-10.6)
[2020-02-12] MEDS: SERTRALINE 25 MG TAB PO SCH (08:43)
[2020-02-12] MEDS: LORATADINE 10 MG TAB PO SCH (08:43)
[2020-02-12] MEDS: APIXABAN 2.5 MG TABLET PO SCH (08:43)
[2020-02-12 09:45] LABS: African American GFR (CKD) 120.2 (60.0-200.0); Anion Gap 8.4 mmol/L (4.00-12.00); Calcium 8.8 mg/dL (8.7-10.3); Carbon Dioxide 26.6 mmol/L (21.6-31.8); Non-African American GFR(CKD) 103.7 (60.0-200.0); Potassium 3.5 mmol/L (3.5-5.5)
[2020-02-12] MEDS ORDERED: VANCOMYCIN TROUGH DUE 1 EACH MISC MISCELLANE ONE (11:00)
[2020-02-12] MEDS: HYDROcodone/APAP 5-325MG 1 EACH TAB PO PRN ×2 (11:00→20:13)
[2020-02-12] MEDS: VANCOMYCIN 1,250 MG in SODIUM CHLORIDE 0.9% 250 ML IVPB SCH (11:31)
--- NOTE | 2020-02-12 23:36 | P.PN ---
Progress Note - Text Progress Note Date: 02/12/20 presenting complaint: Infected decubitus ulcer History of presenting complaint: This is a 84-year-old patient of visiting physicians Dr. Valenzuela. Chronic stable medical conditions include primary osteoarthritis, essential hypertension, depression and anxiety, stage IV infected decubitus ulcer in the sacral area- recently taken off of wound VAC., Chronic indwelling Hemphill catheter. Recent outpatient urine culture showed Pseudomonas aeruginosa and staph aureus. Admitted this time with UTI with above organisms. Patient had failed outpatient treatment. Midline was placed. Hospice was consulted. Today-laying in bed. Tolerating her meals. Pain control. Antibiotic dosing being adjusted. Review of systems: Was done for constitutional, cardiovascular, GI, pulmonary. relevant finding as above Active Medications Acetaminophen (Acetaminophen Tab 325 Mg Tab) 650 mg PO Q6HR PRN PRN Reason: Mild Pain or Fever > 100.5 Hydrocodone Bitart/Acetaminophen (Hydrocodone/Apap 5-325mg 1 Each Tab) 1 each PO Q4HR PRN PRN Reason: Moderate Pain Last Admin: 02/12/20 20:13 Dose: 1 each Documented by: Alprazolam (Alprazolam 0.25 Mg Tab) 0.25 mg PO Q6HR PRN PRN Reason: Anxiety Apixaban (Apixaban 2.5 Mg Tablet) 2.5 mg PO DAILY [facility] Last Admin: 02/12/20 08:43 Dose: 2.5 mg Documented by: Sodium Chloride (Saline 0.9%) 1,000 mls @ 120 mls/hr IV .Q8H20M [facility] Last Admin: 02/12/20 17:23 Dose: Not Given Documented by: Vancomycin HCl 1,250 mg/ (Sodium Chloride) 250 mls @ 125 mls/hr IVPB Q16H [facility] Last Admin: 02/12/20 11:31 Dose: 125 mls/hr Documented by: Gentamicin Sulfate 100 mg/ (Sodium Chloride) 102.5 mls @ 102.5 mls/hr IVPB Q12H [facility] Last Admin: 02/12/20 17:21 Dose: 102.5 mls/hr Documented by: Loratadine (Loratadine 10 Mg Tab) 10 mg PO DAILY [facility] Last Admin: 02/12/20 08:43 Dose: 10 mg Documented by: Miscellaneous Information (Vancomycin Trough Due 1 Each Misc) 1 each MISCELLANE ONCE ONE Stop: 10/30/20 03:01 Miscellaneous Information (Gentamicin Peak Due 1 Each Misc) 1 each MISCELLANE ONCE ONE Stop: 02/13/20 07:31 Miscellaneous Information (Gentamicin Trough Due 1 Each Misc) 1 each MISCELLANE ONCE ONE Stop: 02/13/20 05:01 Naloxone HCl (Naloxone 0.4 Mg/Ml 1 Ml Vial) 0.2 mg IV Q2M PRN PRN Reason: Opioid Reversal Ondansetron HCl (Ondansetron 4 Mg/2 Ml Vial) 4 mg IVP Q8HR PRN PRN Reason: Nausea And Vomiting Sertraline HCl (Sertraline 25 Mg Tab) 25 mg PO DAILY [facility] Last Admin: 02/12/20 08:43 Dose: 25 mg Documented by: Physical examination: VITAL SIGNS: 98.4, 95, 16, 128/76, 93% room air GENERAL: Laying in bed, tired EYES: Pupils equal. Conjunctiva normal. NECK: JVD not raised; masses not palpable. HEART: First and second heart sounds are normal; no edema. LUNGS: Respiratory rate normal; clear to auscultation. ABDOMEN: Soft, nontender, liver spleen not palpable, no masses palpable. PSYCH: Answering simple questions MUSCULOSKELETAL: Sacral decubitus ulcer. . NEUROLOGICAL: contraction of the left arm. Bilateral foot drops INVESTIGATIONS, reviewed in the clinical context: White count 10.9 hemoglobin 11.1 potassium 3.5 creatinine 0.3 UA positive Urine culture from February 08-Pseudomonas aeruginosa, MRSA Assessment: -Acute UTI from cystitis secondary to chronic Hemphill catheter with urine culture positive for Pseudomonas aeruginosa and MRSA, having failed outpatient treatment, POA -chronic sacral decubitus ulcer possibly stage 4 -Severe cognitive impairment. 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 Based on gentamicin level will finalize dose. for discharge. Patient will be discharged with hospice.
[2020-02-13] MEDS ORDERED: VANCOMYCIN TROUGH DUE 1 EACH MISC MISCELLANE ONE (03:00)
[2020-02-13] MEDS: VANCOMYCIN 1,250 MG in SODIUM CHLORIDE 0.9% 250 ML IVPB SCH ×2 (03:28→12:22)
[2020-02-13] MEDS: SODIUM CHLORIDE 0.9% 1,000 ML IV SCH ×2 (03:29→12:33)
[2020-02-13] MEDS ORDERED: GENTAMICIN TROUGH DUE 1 EACH MISC MISCELLANE ONE (05:00)
[2020-02-13] MEDS: GENTAMICIN 100 MG in SODIUM CHLORIDE 0.9% 100 ML IVPB SCH (05:41)
[2020-02-13] MEDS ORDERED: GENTAMICIN PEAK DUE 1 EACH MISC MISCELLANE ONE (07:30)
[2020-02-13 08:01] VITALS: RESP 16
[2020-02-13] MEDS: LORATADINE 10 MG TAB PO SCH (08:59)
[2020-02-13] MEDS: APIXABAN 2.5 MG TABLET PO SCH (08:59)
[2020-02-13] MEDS: SERTRALINE 25 MG TAB PO SCH (08:59)
[2020-02-13 10:06] LABS: African American GFR (CKD) 120.2 (60.0-200.0); Non-African American GFR(CKD) 103.7 (60.0-200.0)
[2020-02-13 12:15] VITALS: PULSE 78
[2020-02-13] MEDS: HYDROcodone/APAP 5-325MG 1 EACH TAB PO PRN (12:18)
[2020-02-13 15:27] VITALS: BP 127/71; TEMP 98.5
[2020-02-13] MEDS ORDERED: GENTAMICIN 90 MG in SODIUM CHLORIDE 0.9% 100 ML IVPB SCH (18:00)
--- NOTE | 2020-02-13 23:29 | P.DS ---
Providers Date of admission: 02/09/20 17:03 Expected date of discharge: 02/13/20 Attending physician: Fritz Blair Primary care physician: Bean Valenzuela MD Hospital Course: presenting complaint: Infected decubitus ulcer History of presenting complaint: This is a 84-year-old patient of visiting physicians Dr. Valenzuela. Chronic stable medical conditions include primary osteoarthritis, essential hypertension, depression and anxiety, stage IV infected decubitus ulcer in the sacral area- recently taken off of wound VAC., Chronic indwelling Soliz catheter. Recent outpatient urine culture showed Pseudomonas aeruginosa and staph aureus. Admitted this time with UTI with above organisms. Patient had failed outpatient treatment. Midline was placed. Hospice was consulted. Today-laying in bed. comfortable. Answering simple questions. Discussed with the outsole caser. Prescriptions done.10 more days of gentamicin. consultation: Dr. ng from wound care center Physical examination: VITAL SIGNS: 98.6, 78, 16, 144/79, 95% room air GENERAL: Laying in bed, awake EYES: Pupils equal. Conjunctiva normal. NECK: JVD not raised; masses not palpable. HEART: First and second heart sounds are normal; no edema. LUNGS: Respiratory rate normal; clear to auscultation. ABDOMEN: Soft, nontender, liver spleen not palpable, no masses palpable. PSYCH: Answering simple questions MUSCULOSKELETAL: Sacral decubitus ulcer. . NEUROLOGICAL: contraction of the left arm. Bilateral foot drops INVESTIGATIONS, reviewed in the clinical context: White count 10.9 hemoglobin 11.1 potassium 3.5 creatinine 0.3 UA positive Urine culture from February 08-Pseudomonas aeruginosa, MRSA Assessment: -Acute UTI from cystitis secondary to chronic Soliz catheter with urine culture positive for Pseudomonas aeruginosa and MRSA, having failed outpatient treatment, POA -chronic sacral decubitus ulcer possibly stage 4 -Severe cognitive impairment. Late onset Alzheimer's dementia -Chronic medical debility -Chronic contracture of the left forearm -Depression not otherwise specified -Essential hypertension -Normocytic anemia of chronic disease -Discharged home with hospice disposition: Home with daughter with hospice Patient Condition at Discharge: Poor Plan - Discharge Summary New Discharge Prescriptions: Continue Sertraline [Zoloft] 25 mg PO DAILY Loratadine [Claritin] 10 mg PO DAILY Apixaban [Eliquis] 2.5 mg PO DAILY HYDROcodone/APAP 5-325MG [[place] 5-325] 1 tab PO Q6H PRN PRN Reason: Pain Discharge Medication List Sertraline [Zoloft] 25 mg PO DAILY 07/29/19 [History] Apixaban [Eliquis] 2.5 mg PO DAILY 02/09/20 [History] HYDROcodone/APAP 5-325MG [[place] 5-325] 1 tab PO Q6H PRN 02/09/20 [History] Loratadine [Claritin] 10 mg PO DAILY 02/09/20 [History] Follow up Appointment(s)/Referral(s): Bean Valenzuela MD [Primary Care Provider] - 1-2 days [facility] [NON-STAFF] - As Needed [facility], [REFERRING] - As Needed (Gentamicin to be delivered this evening ) Patient Instructions/Handouts: Urinary Tract Infection in Older Adults (DC) Activity/Diet/Wound Care/Special Instructions: If interested in getting an over bed table, please call [facility]. #[phone]. [facility] states this would cost $74.99 plus tax. Activity: bed rest Diet: regular Wound Care: turn every 2 hours Special Instructions: Gentamycin for 10 more days at home. After course is completed change soliz cath. Gentamycine peak and trough recommended in 3 days, BMP in 3 days gentamicin 80 mg iv q12 for 10 days Discharge Disposition: HOME WITH HOSPICE
== END 2020-02-13 20:35 | disposition hospice, home (50) | DRG 698 ==
LOC: EC 14:00 → 4SSUR 16:40 → OBSVTOIN 17:03
PROVIDERS: ADMIT Hospitalist; ATTEND Hospitalist
PROC: 05HD33Z Insertion of Infusion Device into Right Cephalic Vein, Percutaneous Approach (ICD-10-PCS; principal; 2020-02-11 08:35)
DX: T83.511A Infection and inflammatory reaction due to indwelling urethral catheter, initial encounter (principal); L89.154 Pressure ulcer of sacral region, stage 4; N30.00 Acute cystitis without hematuria; I69.954 Hemiplegia and hemiparesis following unspecified cerebrovascular disease affecting left non-dominant side; D63.8 Anemia in other chronic diseases classified elsewhere; F02.80 Dementia in other diseases classified elsewhere, unspecified severity, without behavioral disturbance, psychotic disturbance, mood disturbance, and anxiety; G30.1 Alzheimer's disease with late onset; B96.5 Pseudomonas (aeruginosa) (mallei) (pseudomallei) as the cause of diseases classified elsewhere; B95.62 Methicillin resistant Staphylococcus aureus infection as the cause of diseases classified elsewhere; F32.9 Major depressive disorder, single episode, unspecified; F41.9 Anxiety disorder, unspecified; I10 Essential (primary) hypertension; M19.91 Primary osteoarthritis, unspecified site; R53.81 Other malaise; Z74.01 Bed confinement status; Z79.01 Long term (current) use of anticoagulants; Z79.899 Other long term (current) drug therapy; Z88.1 Allergy status to other antibiotic agents; Z91.041 Radiographic dye allergy status; Z86.14 Personal history of Methicillin resistant Staphylococcus aureus infection; Z90.710 Acquired absence of both cervix and uterus; Z90.49 Acquired absence of other specified parts of digestive tract; Z87.19 Personal history of other diseases of the digestive system; Z90.89 Acquired absence of other organs
CPT/HCPCS: 36410; 36415; 76937; 80048; 80053; 80170; 80200; 80202; 81001; 82565; 83735; 85025; 85027; 87070; 87077; 87086; 87186; 87205; 99284